=== PATIENT | female | born 1940 | race Caucasian/White ===

== ENCOUNTER 2020-08-24 08:22 | Emergency (ER) | payer MEDICARE ==
[~2020-08-24] VITALS: Ht 165.1 cm; Wt 97.1 kg
[~2020-08-24 08:22] MED LIST: AMOXICILLIN500 MG PO; CLOPIDOGREL75 MG PO; CURCUMIN1 GM MISC; FISH OIL + D31 EACH PO; GARLIC1 EAC1 PO; IPRAT-ALBUT 0.5-3 ML INH; LISINOPRIL10 MG PO; PAXIL40 MG PO; PROBIOTIC1 EAC1 PO; VITAMIN C500 M5 PO; VITAMIN D3 COM1 EACH PO
--- OUTSIDE RECORDS SUMMARY | 2020-08-24 08:26 | XMS ---
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 Aaliyah has no Care Guidelines for this patient. [facility] MO[facility] TOTAL 5 NOTE: Visits indicate total known visits. ED/C VISIT TRACKING (12 MO.) [facility]2020 [facility] [place] [facility] COMPLAINT: - SOB 07/31/2020 18:45 QUINTEN Matute [place] TYPE: Emergency COMPLAINT: - DIFFICULTY BREATHING DIAGNOSES: - Other mcfp (current) drug therapy - Personal history of nicotine dependence - Personal history of transient ischemic attack (TIA), and cerebral infarction without residual deficits - Unspecified asthma with (acute) exacerbation - Shortness of breath - Major depressive disorder, single episode, unspecified - Essential (primary) hypertension 11/04/2019 13:40 Camille IYER [place] TYPE: Emergency DIAGNOSES: - Unspecified abdominal pain - Other acute postprocedural pain - MEDIC 101/FLANK PAIN,ABDOMINAL PAIN 09/15/2019 09:38 Mcclellan Darian [place] TYPE: Emergency DIAGNOSES: - Diverticulitis of intestine, part unspecified, without perforation or abscess without bleeding - Hypotension, unspecified - Syncope and collapse - abdominal pain 08/25/2019 14:33 Crispin Pradhan [place] TYPE: Emergency DIAGNOSES: - HEMATURIA, BACK PAIN, SUPRAPUBIC PAIN - Hematuria, unspecified INPATIENT VISIT TRACKING (12 MO.) 09/15/2019 14:08 Camille IYER [place] TYPE: Medical Surgical DIAGNOSES: - Diverticulitis of intestine, part unspecified, without perforation or abscess without bleeding [email or web address]
[2020-08-24] MEDS ORDERED: PREDNISONE20 MG PO (10:05)
[2020-08-24] MEDS ORDERED: ZITHROMAX250 MG PO (10:05)
[2020-08-24] MEDS ORDERED: FLUTICASONE-SA1 EAC1 INH (10:05)
--- NOTE | 2020-08-25 17:20 | EKG ---
[facility] [address] [place], [place] [address] Signed Sinus rhythm with 1st degree AV block Otherwise normal ECG When compared with ECG of 31-JUL-2020 20:09, No significant change was found Confirmed by HECTOR WEISS DO ([id number]) on 08/25/2020 5:20:16 PM Electronically Signed By: HECTOR WEISS DO 08/25/20 1720 PATIENT NAME: CASPER GEORGE Electrocardiogram DATE OF : 42 PHYSICIAN: HECTOR WEISS DO REPORT #: [id number] REPORT IS CONFIDENTIAL AND NOT TO BE RELEASED WITHOUT AUTHORIZATION
== END 2020-08-24 10:24 | disposition home or self-care (01) ==
LOC: ED 08:22
DX: J45.901 Unspecified asthma with (acute) exacerbation (principal); Z86.73 Personal history of transient ischemic attack (TIA), and cerebral infarction without residual deficits; F32.9 Major depressive disorder, single episode, unspecified; I10 Essential (primary) hypertension; Z87.891 Personal history of nicotine dependence; Z79.899 Other long term (current) drug therapy
CPT/HCPCS: 71045; 80053; 83880; 84484; 85025; 93005; 93010; 94640; 96374; 99285-25; J2930

== ENCOUNTER 2020-09-02 10:37 | Inpatient (IN) | payer MEDICARE ==
[~2020-09-02] VITALS: Ht 165.1 cm; Wt 99.0 kg
[~2020-09-02 10:37] MED LIST changes: -CURCUMIN1 GM MISC; +FLUTICASONE-SA1 EAC1 INH; +PREDNISONE20 MG PO; +TURMERIC500 M2 PO; +ZITHROMAX250 MG PO
--- OUTSIDE RECORDS SUMMARY | 2020-09-02 10:40 | XMS ---
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 Care History Medical/Surgical 08/25/2020 [facility] - PATIENT DOES HAVE A PCP- DR HOPSON AT [facility]-RECENTLY ESTABLISHED CARE WITH PROVIDER. - CHW WILL UPDATE [facility] WITH PROVIDER AND MAKE SURE ED VISIT CHART NOTES ARE PROVIDED TO PCP OFFICE. E.D. VISIT COUNT (12 MO.) 1 [place] [facility] 1 [place] [facility] 3 [facility]. TOTAL 5 NOTE: Visits indicate total known visits. 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 - Major depressive disorder, single episode, unspecified - Essential (primary) hypertension 07/31/2020 18:45 QUINTEN [place] TYPE: Emergency COMPLAINT: - DIFFICULTY BREATHING DIAGNOSES: - 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
--- NOTE | 2020-09-02 13:40 | NUR ---
79 year old female patient admitted to ccu rm, 128 with dx of severe exerbation ASTHMA. UPON ADMIT PATIENT IS SOMEWHAT ANXIOUS, IS ABLE TO SPEAK IN COMPLETE SENTENCES. PATIENT STATES SHE HAS BEEN WITH INCREASED SHORTNESS OF BREATH AND WHEEZES OVER THE PAST 2 WEEKS. HAS HAD LONG HISTORY OF ASTHMA. IS SCHEDULED TO SEE A PULMONALOGIST NEXT WEEK. PATIENT HAS HAD PULMONALOGIST IN [place], WAS IN NOV OF THIS YEAR. ADMISSION PROCESS STARTED.
--- NOTE | 2020-09-02 13:50 | NUR ---
TO COMMODE TO VOID, IS WITH INCREASED DYSPNEA WITH EXERTION. HAS AUDIALBE WHEEZES. PATIENT C/O CHEST THIGHTNESS, STATES THIS HAS BEEN GOING ON FOR PAST 2 WEEKS.
--- NOTE | 2020-09-02 14:08 | NUR ---
ABG RESULTS ON RA, PH-7.45, POC2-38.7, PO2-70, HC03-26.3, SAT-94.2.
--- NOTE | 2020-09-02 14:45 | NUR ---
DUONEB GIVEN BY RT PER PATIENT REQUEST. SOLUMEDROL 80 MG IV GIVEN PER ORDERS.
--- NOTE | 2020-09-02 16:40 | NUR ---
ASSESSMENT DONE, LUNGS WITH BETTER AIR EXCHANGE AT THIS TIME.
--- NOTE | 2020-09-02 17:45 | NUR ---
TOOK DINNER WELL.
--- NOTE | 2020-09-02 18:27 | NUR ---
REQUESTING NEB TREATMENT.
--- NOTE | 2020-09-02 19:15 | NUR ---
REPORT TO NEXT SHIFT.
--- NOTE | 2020-09-02 20:14 | NUR ---
PATIENT ASSESSMENT COMPLETED. PT. HR 102-104 AFTER NEB TX. LUNGS DIM. IN RLL AND LLL, BUT CLEAR THROUGHOUT. GIVEN 3MG MELATONIN BEFORE BEDTIME. PT. WEARING CPAP AND RESTING IN BED WITH CALL LIGHT IN REACH.
--- NOTE | 2020-09-02 22:05 | NUR ---
PT. GIVEN SOLUMEDROL. AMBULATED TO THE BEDSIDE COMMODE AND VOIDED 300CC CLEAR YELLOW URINE. SOB WITH EXERTION. PT. STATED SHE FELT LIKE SHE COULD BREATH EASIER. LEFT RESTING IN BED AND DENIED FURTHER NEEDS.
--- NOTE | 2020-09-03 00:06 | NUR ---
PATIENT ASSESSMENT COMPLETED. PT. DENIES PAIN. IV SITE WNL. PT. LEFT RESTING IN BED WITH CPAP ON.
--- NOTE | 2020-09-03 05:53 | NUR ---
PT. ASSESSMENT COMPLETED AND SOLUMEDROL GIVEN. PT. STATED SHE WAS ANXIOUS ABOUT GOING HOME TOO SOON AND HAVING ANOTHER EXACERBATION. VOIDED 450CC CLEAR YELLOW URINE IN THE THE COMMODE. AMBULATED WITH NURSE ASSISTANCE AND TOLERATED WELL. IV SITE WNL AND FLUSHED WELL. PATIENT LEFT RESTING IN BED WITH R.T. AT BEDSIDE FOR [facility].
--- NOTE | 2020-09-03 06:38 | NUR ---
PATIENT BROUGHT TOILETRIES, PER REQUEST AND ORDERED BREAKFAST. PT. STATED SHE HAD COUGHED UP WHITE AND YELLOW SPUTUM. LEFT RESTING IN BED WITH CALL LIGHT NEARBY.
--- NOTE | 2020-09-03 07:30 | NUR ---
REPORT RECIEVED. PATIENT IS BED RESTING. NO DISTRESS NOTED.
--- NOTE | 2020-09-03 08:00 | NUR ---
ASSESSMENT DONE. PATIENT STATES SHE FEELS BETTER TODAY. TALKED WITH PATIENT ABOUT POC FOR DAY. INDICATES UNDERSTANDING. ROUTINE MEDICATIONS GIVEN. NEB TREATMENT PER RT GIVEN EARLIER.
--- NOTE | 2020-09-03 08:42 | NUR ---
TOOK BREAKFAST WELL.
--- NOTE | 2020-09-03 09:00 | NUR ---
UP TO BR. VOIDED AND EXPELLED MEDIUM FORMED STOOL. INCREASED SHORTNESS OF BREATH NOTED WITH EXERTION AND WITH TALKING.
--- NOTE | 2020-09-03 09:20 | NUR ---
SITTING IN CHAIR, VERY TALKATIVE. TV ON .
--- NOTE | 2020-09-03 10:30 | NUR ---
UP TO BR, IS FAIRLY STABLE ON FEET. INCREASED SOB WITH ACTIVITY. BACK TO CHIAR. HAS BEEN SITTING IN CHAIR WATCHING TV. C/O FEELING VERY SHAKEY. STATES SHE FEELS LIKE SHE IS GETTING TOO MANY NEBS TREATMENTS. TALKED WITH PATIENT REGARDING THIS.
--- NOTE | 2020-09-03 12:00 | NUR ---
REMAINS IN CHAIR. NO CHANGES.
--- NOTE | 2020-09-03 12:15 | NUR ---
ASSESSMENT DONE. LUNCH GIVEN.
--- NOTE | 2020-09-03 13:00 | NUR ---
DR. MADERA HERE TO SEE PATIENT. PATIENT WILL REMAIN IN CCU. ORDERS RECIEVED. PATIENT CONTINUES TO GET SHORT OF BREATH WITH TALKING AND EXERTION.
--- NOTE | 2020-09-03 13:20 | NUR ---
UP TO BR WITH ASSIST. HAS BEEN TAKING PO W/O PROBLEMS.
--- NOTE | 2020-09-03 13:30 | NUR ---
BACK TO BED W/O INCIDENT.
--- NOTE | 2020-09-03 14:12 | EKG ---
[facility] [address] [place] [address] Signed Normal sinus rhythm Inferior infarct , age undetermined Abnormal ECG No previous ECGs available Confirmed by SHERRIE MADERA MD ([id number]) on 09/03/2020 2:12:24 PM Electronically Signed By: SHERRIE MADERA MD 09/03/20 1412 PATIENT NAME: CASPER GEORGE Electrocardiogram DATE OF : 42 PHYSICIAN: SHERRIE MADERA MD REPORT #: [id number] REPORT IS CONFIDENTIAL AND NOT TO BE RELEASED WITHOUT AUTHORIZATION
--- NOTE | 2020-09-03 16:30 | NUR ---
ASSESSMENT DONE. LESS SHAKEY. IS MORE RELAXED AT THIS TIME.
--- NOTE | 2020-09-03 18:00 | NUR ---
TOOK DINNER WELL.
--- NOTE | 2020-09-03 19:14 | NUR ---
REPORT TO NEXT SHIFT.
--- NOTE | 2020-09-03 19:51 | NUR ---
PATIENT ASSESSMENT COMPLETED. LUNGS DIM. IN BASES, BUT CLEAR. DENIES PAIN AND STATES THAT SHE IS STILL SOB WHEN MOVING. IV SITE WNL. PATIENT GIVEN 5MG MELATONIN AND DENIED FURTHER NEED. LEFT RESTING IN BED WITH CALL LIGHT IN REACH.
--- NOTE | 2020-09-03 20:16 | NUR ---
PATIENT USED CALL LIGHT APPROPRIATELY FOR NURSE ASSISTANCE WITH CPAP SET UP. PATIENT AMBULATED INDEPENDENTLY TO THE BATHROOM AND VOIDED 300CC CLEAR YELLOW URINE. TOLERATED WELL. PATIENT LEFT RESTING IN BED WITH CALL LIGHT IN REACH.
--- NOTE | 2020-09-04 01:23 | NUR ---
PATIENT USED CALL LIGHT APPROPRIATELY FOR NURSE ASSISTANCE TO THE BATHROOM. AMBULATED INDEPENDENTLY AND TOLERATED WELL. VOIDED 6500CC CLEAR YELLOW URINE. IV SITE WNL AND FLUSHED WELL. LUNGS CLEAR THROUGHOUT AND DIM. IN BASES. PATIENT STATED THAT SHE HAS BEEN SLEEPING WELL. LEFT RESTING IN BED WITH CPAP ON AND CALL LIGHT WITHIN REACH.
--- NOTE | 2020-09-04 04:44 | NUR ---
PATIENT ASSESSMENT COMPLETED. PATIENT AMBULATED INDEPENDENTLY TO THE BATHROOM AND TOLERATED WELL. PATIENT STATED SHE HAD BEEN COUGHING A LOT THROUGH THE NIGHT. LUNGS WERE CLEAR THROUGHOUT AND DIM IN BASES. IV SITE WNL AND DRESSING WAS REINFORCED WITH TAPE. PT. LEFT RESTING IN BED AND DENIED FURTHER NEEDS.
--- NOTE | 2020-09-04 08:00 | NUR ---
assessment done. AUDIBLE WHEEZES NOTED. IS SHORT OF BREATH.
--- NOTE | 2020-09-04 08:15 | NUR ---
NEB TREATMENT GIVEN VIA [facility]EN. AFTER NEB TREATMENT, NO AUDIBLE WHEEZES HEARD. LESS SHORT OF BREATH.
--- NOTE | 2020-09-04 09:00 | NUR ---
TOOK BREAKFAST WELL.
--- NOTE | 2020-09-04 09:40 | NUR ---
UP TO BR TO VOID. TOLERATING AMBULATION WELL. TEETH BRUSHED,FACE AND BACK WASHED WHILE UP TO SINK. UPON RETURN TO CHAIR, HAS INCREASED WHEEZES WITH SHORTNESS OF BREATH. ENCOURAGE PATIENT TO REST.
--- NOTE | 2020-09-04 09:42 | NUR ---
fresh water given, pt. got up to walk to the bathroom. breakfast given. no ohter needs at this time
--- NOTE | 2020-09-04 10:30 | NUR ---
dr. bauer here to see patient, ORDERS RECIEVED.
[2020-09-04] MEDS ORDERED: OSCILLOCOCCINUM PO (10:58)
--- NOTE | 2020-09-04 10:58 | NUR ---
MED REC COMPLETE
--- NOTE | 2020-09-04 11:30 | NUR ---
REMAINS IN CHAIR.
--- NOTE | 2020-09-04 12:10 | NUR ---
ASSESSMENT DONE. STATES SHE IS SHORT OF BREATH, RT AWARE. RT TO GIVE NEB TREATMENT.
--- NOTE | 2020-09-04 12:20 | NUR ---
NEB TREATMENT GIVEN PER RT. PT WISHES TO REST BEFORE EATING LUNCH.
--- NOTE | 2020-09-04 13:25 | NUR ---
pt. got up and walked to the bathroom. cleaned her bottom, put a clean gown on. sitting in chair eating her lunch. no other needs at this time.
--- NOTE | 2020-09-04 13:50 | NUR ---
BACK TO BED. NO FUTHER CHANGES.
--- NOTE | 2020-09-04 14:26 | NUR ---
UNABLE TO VISIT, PENDING COVID-19 RESULTS. WILL FOLLOW
--- NOTE | 2020-09-04 15:50 | NUR ---
TO MED-SURG VIA CHAIR. REPORT TO RAISSA CALDERON.
--- NOTE | 2020-09-04 16:00 | NUR ---
PT ARRIVED TO FLOOR. PT ABLE TO PIVOT TRANSFER FROM CHAIR TO BED. PT SHORT OF BREATH ON ARRIVAL AND WHILE TALKING, PT DUE TO HAVE A NEB TREATMENT SHORTLY AND STATES THAT THIS WILL HELP HER FEEL BETTER. PT POLITE AND DISCUSSED WITH THIS RN HER CONCERNS ABOUT HAVING TO PAY FOR MEDICATIONS THAT SHE CAN'T AFFORD BUT THAT ASSIST HER TO BREATHE BETTER. PT HAS NO OTHER COMPLIANTS ON ARRIVAL. CALL RAYMOND BOWMAN, PT STATES SHE WILL CALL THIS RN WHEN SHE NEEDS TO USE THE RESTROOM
--- NOTE | 2020-09-04 17:50 | NUR ---
THIS RN IN PTS ROOM TO GIVE PT HER EVENING MEDS. PT APPEARS TO BE LESS SHORT OF BREATH AT THIS TIME AND IS SITTING UP IN BED WATCHING TV. PT HAS NO COMPLAINTS OR CONCERNS OF NOTE
--- NOTE | 2020-09-04 18:52 | NUR ---
PATIENT IN BED WATCHING TV. CALL LIGHT IN REACH. NO FURTHER NEEDS AT THIS TIME.
--- NOTE | 2020-09-04 19:20 | NUR ---
BEDSIDE REPORT RECEIVED FROM YUMIKO HAJI. pt IS AWAKE, RESTING IN BED. NO REQUESTS AT THIS TIME. CALL LIGHT IN REACH.
--- NOTE | 2020-09-04 20:55 | NUR ---
SBA TO RESTROOM FOR VOID. BACK TO BED VSS. SPO2 WNL ON RA. ASSESSMENT COMPLETE. LUNG SOUNDS CLEAR THROUGHOUT. pt DENIES SOB. ICE WATER PROVIDED. HOME CPAP IN REACH. PILLOW PROVIDED. NO ADDITIONAL REQUESTS.
--- NOTE | 2020-09-04 21:10 | PATH ---
[facility] [address] [place], [place] [address] Signed ORDERING PHYSICIAN: Abhilash Stein MD PATIENT NAME: CASPER GEORGE GENDER: F : 1940 Prior History: No cases found. SPECIMEN(S): No Source Given MOLECULAR PATHOLOGY RESULTS: SARS-CoV-2 Not Detected ADDITIONAL NOTES.: The [employer] Fusion SARS-CoV-2 Assay is a multiplex real-time PCR (RT-PCR) in vitro diagnostic test intended for the qualitative detection of RNA from SARS-CoV-2 from individuals who meet COVID-19 clinical and/or epidemiological criteria. In general, SARS-CoV-2 RNA can be detected during the acute phase of infection. Positive results indicate the presence of SARS-CoV-2 RNA. Clinical correlation with patient history and other diagnostic information is necessary to determine patient infection status. Positive results do not rule out bacterial infection or co-infection with other viruses. Negative results do not preclude SARS-CoV-2 infection and should not be used as the sole basis for patient management decisions. Negative results must be combined with other clinical observations, patient history, and epidemiological information. The [place] Fusion SARS-CoV-2 Assay is not yet approved or cleared by the [place] FDA. When there are no FDA-approved or cleared tests available, and other criteria are met, FDA can make tests available under an emergency access mechanism called an Emergency Use Authorization (EUA). The EUA for this test is supported by the [place] of Health and Human Service's (HHS's) declaration that circumstances exist to justify the emergency use of in vitro diagnostics for the detection and/or diagnosis of the virus that causes COVID-19. This EUA will remain in effect for the duration of the COVID-19 declaration justifying emergency of IVDs, unless it is terminated or revoked by FDA, after which the test may no longer be used. The [place] Fusion SARS-CoV-2 Assay is for use only under EUA PATIENT NAME: CASPER GEORGE PATHOLOGY DATE OF : 42 REPORT #: [id number] PHYSICIAN: MAGALIE VERDUZCO PCP: ALEXANDRE HOPSON MD REPORT IS CONFIDENTIAL AND NOT TO BE RELEASED WITHOUT AUTHORIZATION [facility] [address] [place] [id number] Signed in [place] laboratories certified under the Clinical Laboratory Improvement Amendments of 1988 (CLIA) to perform high complexity tests. [facility] is certified under CLIA to perform high complexity clinical laboratory testing. PERFORMING LABORATORY.: Molecular testing was performed by [facility] [place] [address] (Lead Nuclear Medicine Technologist: Xavier Anderson D.O.; CLIA#: [id number]) Diagnostician: System Interface Pathologist Electronically Signed 09/04/2020 Copies: ~ PATIENT NAME: CASPER GEORGE PATHOLOGY DATE OF : 42 REPORT #: [id number] PHYSICIAN: MAGALIE VERDUZCO PCP: ALEXANDRE HOPSON MD REPORT IS CONFIDENTIAL AND NOT TO BE RELEASED WITHOUT AUTHORIZATION
--- NOTE | 2020-09-04 22:49 | NUR ---
CHECKED ON pt. RESTING IN BED WITH HOME CPAP ON. BREATHING UNLABORED. LIGHTS OFF IN ROOM.
--- NOTE | 2020-09-05 01:21 | NUR ---
pt RESTING IN BED WITH HOME CPAP. BREATHING EQUAL AND UNLABORED. LIGHTS OFF IN ROOM.
--- NOTE | 2020-09-05 03:10 | NUR ---
CHECKED ON pt. RESTING IN BED WITH HOME CPAP ON. BREATHING UNLABORED.
--- NOTE | 2020-09-05 06:35 | NUR ---
pt SLEEPING, AWAKENS TO VOICE. DENIES SOB UPON AWAKENING. LUNG SOUNDS CLEAR, DIMINISHED THROUGHOUT ALL LOBES. SBA TO RESTROOM FOR VOID, ORAL CARE COMPLETE. pt BACK IN BED, C/O SOB AFTER CONVERSING WITH THIS RN. PRN NEB TREATMENT ADMINISTERED. pt STATES "I FEEL SO MUCH BETTER". LUNG SOUNDS CLEAR WITH OCCASIONAL EXPIRATORY WHEEZE AUSCULTATED FABI. pt ON RA. CALL LIGHT IN REACH. COFFEE AND HOT WATER PROVIDED REQUESTED.
--- NOTE | 2020-09-05 06:39 | NUR ---
pt RESTED WELL THIS SHIFT. ON HOME CPAP WITH SLEEP, RA WHILE AWAKE. PRN AND SCHEDULED NEB TREATMENTS. LUNG SOUNDS CLEAR WITH OCCASIONAL WHEEZES AUSCULTATED. SBA. VOIDING QS. VSS. ALERT AND ORIENTED. USES CALL LIGHT APPROPRIATELY.
--- NOTE | 2020-09-05 07:10 | NUR ---
BEDSIDE HANDOFF REPORT RECEIVED FROM PUBLIC HEALTH TECHNOLOGIST RN. PT RESTING IN BED. PT STATES SHE FEELS PRETTY GOOD THIS AM. PT DENIES NEEDS AT THIS TIME.
--- NOTE | 2020-09-05 08:45 | NUR ---
PT RESTIGN IN BED, COMPLETED WITH BREAKFAST. PT ON ROOM AIR, LUNG SOUNDS CLEAR UN BUL, CRACKLES NOTED TO BLL, STATES BREATHING FEEL BETTER TODAY VERSUS YESTERDAY, CONTINUES TO GET SOB WITH ACTIVITY OR WHILE TALKING. PT DENIES NAUSEA, BOWEL TONES ACTIVE, TOLERATING DIET. PT WITHOUTE EDEMA. CMS INTACT. IV SOLUMEDROL GIVEN, IV SALINE LOCKED. PT ASSISTED TO BATHROOM, SBA, PT REQUESTING TO SHOWER, FARM EQUIPMENT ENGINE MECHANIC TO ASSIST PT.
--- NOTE | 2020-09-05 09:36 | NUR ---
PATIENT SHOWERED WITH HELP OF DISABILITY COORDINATOR. PATIENT MOSTLY IND IN SHOWER. NEW GOWN PROVIDED. SHAMPOO, YUKO CARE, SKIN CARE DONE. AM CARE. PATIENT NOW BACK TO BED, SBA. ASKED FOR BREATHING TREATMENT, RT NOTIFIED. CALL LIGHT IN REACH. NO FURTHER NEEDS AT THIS TIME.
--- NOTE | 2020-09-05 11:10 | NUR ---
PT RESTING IN BED. PT STATES BREATHIN GIMPROVED AFTER BREATHING TREATMENT. PT SBA TO BATHROOM, VOIDED. PT DENIES OTHER NEEDS AT THIS TIME.
--- NOTE | 2020-09-05 11:35 | NUR ---
ROUNDED ON PT. PLAN TO CONTINEU IV SOLUMEDROL AND INCREASE ACTIVITY TOLERATED.
--- NOTE | 2020-09-05 14:30 | NUR ---
PT RESTING IN BED. PT STATES SHE HAS WALKED AROUND IN THE ROOM 3 TIMES, ABLE TO WALK FROM WINDOW TO DOOR AND BACK THEN NEEDS TO SIT TO CATCH HER BREATH. LUNG SOUNDS CLEAR. IV TO RIGHT HAND TUBING CATCHING ON THINGS WITH MOVEMENT, PT REQUESTING IV TO BE MOVED. NEW IV STARTED TO LEFT FOREARM. NO ACUTE CHANGES. PT REQUESTING TO SPEAK WITH CASE MANAGEMENT, CM NOTIFIED AND WILL ROUND ON PT.
--- NOTE | 2020-09-05 14:35 | NUR ---
PATIENT HAS BEEN UP WALKING AROUND, FROM OTHER SIDE OF BED TO CHAIR AND TO BATHROOM. RN IN ROOM AT THIS TIME. CALL LIGHT IN REACH. NO FURTHER NEEDS AT THIS TIME.
[2020-09-05] MEDS ORDERED: PROAIR HFA8.5 GM INH (14:58)
--- NOTE | 2020-09-05 16:21 | NUR ---
Attempted to see pt several times, but she is taking frequent nebulizer treatments and no entry into room following treatment for 1 hour. Was able to speak with pt by phone. She voices concern for finances and inability to pay >200 for each nebulizer medication. I checked with [facility] and they could provide for reduced cost, Bon from pharm is also working on this and was able to get the lowest rate through [employer]. Prescriptions were sent. Prescription, notes, H&P, and face sheet sent to [facility] for new Nebulizer as pt is not working well and is approx 11 years old. Pt states she lives alone at [facility]. She has 5 steps with rails. Her daughter Yasmin, lives in [place] and assists her. Pt has had frequent ER trips for her asthma, she spoke with Dr. Stein and plans on changing for him to be her pcp. Pt. plans on dc in the next 2 days. Feels she will be ok to go home, isidoro will assist.
--- NOTE | 2020-09-05 18:22 | NUR ---
PATIENT IN BED RESTING. CALL LIGHT IN REACH. NO FURTHER NEEDS AT THIS TIME.
--- NOTE | 2020-09-05 18:33 | NUR ---
PT BREATHING IMPROVED TODAY, INCREASING ACTIVITY TOLERANCE, WALKING INDEPENDENTLY IN ROOM. LUNG SOUNDS CLEAR, CRACKLES NOTED IN BASES THIS AM, ON ROOM AIR, RECEIVED SOLUMEDROL AND NEBS. NEW IV STARTED TO LEFT ARM. PT WITH GOOD APPETITE. VOIDING QS, HAD BM TODAY.
--- NOTE | 2020-09-05 19:10 | NUR ---
SHIFT REPORT FROM NURSE MARIE. PT IN BED, TALKATIVE AND ALERT. PT REPORTS NO PAIN AT THIS TIME AND THAT SHE "JUST FEELS SO MUCH BETTER". EXTRA BLANKET PROVIDED. NO FURTHER NEEDS AT THIS TIME.
--- NOTE | 2020-09-05 20:00 | NUR ---
V/S AND I&O TAKEN AND CHARTED. ICE WATER REFILLED. NO OTHER NEEDS AT THIS TIME.
--- NOTE | 2020-09-05 20:15 | NUR ---
IN ROOM FOR ASSESSMENT. PT READY FOR BED AND WAITING FOR DUONEB TREATMENT. LUNG HAVE LIGHT CRACKLES IN BOTH BASES OTHERWISE ASSESSMENT UNREMARKABLE. VSS. RT TO SET UP CPAP FOR PT. NO FURTHER NEEDS AT THIS TIME. CALL LIGHT WITHIN REACH
--- NOTE | 2020-09-06 00:07 | NUR ---
CHECKED ON PT. PT APPEARS TO BE SLEEPING WITH CPAP ON. EVEN UNLABORED BREATHING, EYES CLOSED. NO APPARENT SIGNS OF DISTRESS. CALL LIGHT WITHIN REACH.
--- NOTE | 2020-09-06 02:45 | NUR ---
ROUNDS COMPLETE. PT SLEEPING ON BACK WITH CPAP ON. NO APPARENT SIGNS OF DISTRESS.
--- NOTE | 2020-09-06 07:49 | NUR ---
this rn received report from stevie posada. pt appears to be resting at this time with respirations noted.
--- NOTE | 2020-09-06 08:16 | NUR ---
PATIENT SITTING UP IN BED TAKING HER BREAKFAST. WHITE BOARD UPDATED. ICE WATER GIVEN. CALL LIGHT WITHIN REACH. NO OTHER NEEDS AT THIS TIME
--- NOTE | 2020-09-06 09:00 | NUR ---
PATIENT SITTING UP IN BED. RN IN ROOM. VITAL SIGNS DONE BY RN. I&O DONE. CALL LIGHT WITHIN REACH. NO OTHER NEEDS AT THIS TIME
--- NOTE | 2020-09-06 09:14 | NUR ---
THIS RN IN PTS ROOM TO DO PTS MORNING ASSESSMENT AND MORNIGN MEDS. PT SOUNDS TO BE BREATHING MUCH BETTER SINCE THE LAST TIME THIS RN HAD PT. PT HAS NOTHING ELSE TO REPORT TO THIS RN.
--- NOTE | 2020-09-06 10:20 | NUR ---
Spoke with Jaqueline. Updated I called [facility] this am and nebulizer will be delivered to the hospital today. States she plans on walking in the [place] today as she is weak, she has been sick with her asthma exacerbations for close to a month. She becomes sob when visiting luis manuel my visit today. Denies needs to go home, she lives alone, but daughter will assist her if needed. She denies concerns as she feels she just needs meds, she did not have the funds to purchase medications which were ordered by her PCP.
--- NOTE | 2020-09-06 11:10 | NUR ---
Called and clarified with [facility] they received my fax for new nebulizer yesterday. They are working on this now. Requested they deliver to the hospital today. She faxed there confirmation of order form and Dr. Christine signed and I faxed it to Denice.
--- NOTE | 2020-09-06 11:15 | NUR ---
Charge cord for phone taken to room. Pt showed how to access good RX to check [facility] for medication. Pt again stating she has a hard time paying for meds and groceries, as her medications a very expensive. Again discussed Bon, pharmacist, has worked through [employer] to assist her with discounted medication.
--- NOTE | 2020-09-06 13:15 | NUR ---
PATIENT SITTING UP IN BED. VITAL SIGNS AND I&O DONE. ICE WATER GIVEN. CALL LIGHT WITHIN REACH. NO OTHER NEEDS AT THIS TIME
--- NOTE | 2020-09-06 14:59 | NUR ---
THIS RN IN PTS ROOM TO CHECK ON HER AND DO HER AFTERNOON ASSESSMENT. PT APPEARS TO BE RESTING COMFORTABLY WITH RESPIRTAIONS NOTED
--- NOTE | 2020-09-06 15:45 | NUR ---
THIS RN IN PTS ROOM TO PTS AFTERNOON ASSESSMENT. PT STATES THAT SHE IS FEELING BETTER AND IS NOW HUNGRY, NOT AIR HUNGRY ANYMORE. PT REQUESTED SOME FRESH WATER AND JELLO, THIS RN ABLE TO PROVIDE THESE REQUESTS TO PT AT THIS TIME
--- NOTE | 2020-09-06 17:09 | NUR ---
PATIENT SITTING UP IN BED. VITAL SIGNS AND I&O DONE. CALL LIGHT WITHIN REACH. NO OTHER NEEDS AT THIS TIME
--- NOTE | 2020-09-06 19:22 | NUR ---
REPORT RECEIVED FROM YUMIKO HAJI. PATIENT AWAKE IN BED, A+O, STATES NO NEEDS AT THIS TIME. CALL LIGHT WITHIN REACH, WILL CONTINUE TO MONITOR.
--- NOTE | 2020-09-06 19:44 | NUR ---
PRN MEDICATION ADMINISTERED. IV LEAKING, DRESSING AND EXTENSION SET CHANGED, ERROR RESOLVED, FLUSHES WNL. VITALS AND I/O'S COMPLETE, ASSESSMENT COMPLETE. WATER AND WARM BLANKET PROVIDED, CPAP SET UP, CALL LIGHT IN REACH. PT DENIES NEEDS AT THIS TIME, WILL CONTINUE TO MONITOR.
--- NOTE | 2020-09-07 00:30 | NUR ---
ROUNDED ON PATIENT, LAYING IN BED WITH EYES CLOSED, LIGHTS OFF. CPAP IN PLACE, BREATHING EVEN AND UNLABORED. NO APPARENT NEEDS AT THIS TIME, WILL CONTINUE TO MONITOR.
--- NOTE | 2020-09-07 04:33 | NUR ---
ROUNDED ON PATIENT, LAYING IN BED WITH EYES CLOSED, BREATHING EVEN AND UNLABORED, CPAP IN PLACE. CALL LIGHT WITHIN REACH, WILL CONTINUE TO MONITOR.
--- NOTE | 2020-09-07 07:46 | NUR ---
this rn received report from stevie posada and karen posada. pt sitting up in bed this am and has no complaints to report this am.
--- NOTE | 2020-09-07 08:37 | NUR ---
IDT completed. Pt will dc to day, awaiting nebulizer delivery from [facility].
--- NOTE | 2020-09-07 09:19 | NUR ---
THIS RN IN PTS ROOM TO GIVE PT HER MORNING MEDS WITH [facility] WILD LIFE MANAGER KORIN. PT AGREEABLE TO HAVE PT IN TOOM AND TOOK MEDS WITH WILD LIFE MANAGER. KORIN ABLE TO GIVE MEDS THIS AM WELL AND WITHING PROCEDURE.
[2020-09-07] MEDS ORDERED: PREDNISONE20 MG PO ×2 (10:38→10:39)
[2020-09-07] MEDS ORDERED: PREDNISONE10 MG PO (10:39)
[2020-09-07] MEDS ORDERED: PREDNISONE5 MG PO (10:40)
--- NOTE | 2020-09-07 10:45 | NUR ---
Called [facility] and nebulizer was not delivered. They state they were waiting for pt to call them. Reminded she is in the hospital. Requested they deliver the nebulizer neha as she is planning on dc today. Their equipment driver making deliveries to [place] and will not return until after 1 pm. I spoke with Jaqueline and she states she will wait for the nebulizer and then dc. Called [facility] and notified.
[2020-09-07] MEDS ORDERED: PERFOROMIS20 MCG/2 M INH (10:59)
[2020-09-07] MEDS ORDERED: BUDESONIDE0.5 MG/2 M INH (10:59)
== END 2020-09-07 14:15 | disposition home or self-care (01) | DRG 203 ==
LOC: ED 10:37 → CCU 13:08 → MS 13:08
PROVIDERS: ADMIT Internal Medicine; ATTEND Internal Medicine
DX: J45.51 Severe persistent asthma with (acute) exacerbation (principal); Z20.828 Contact with and (suspected) exposure to other viral communicable diseases; F32.9 Major depressive disorder, single episode, unspecified; I10 Essential (primary) hypertension; Z86.73 Personal history of transient ischemic attack (TIA), and cerebral infarction without residual deficits; Z87.891 Personal history of nicotine dependence; Z79.51 Long term (current) use of inhaled steroids; Z79.52 Long term (current) use of systemic steroids; Z79.899 Other long term (current) drug therapy; Z79.02 Long term (current) use of antithrombotics/antiplatelets
CPT/HCPCS: 36600; 71045; 80053; 82803; 83735; 84484; 85025; 85379; 93005; 93010; 94640; 94667; 94668; 94760; 96374; 99285-25; C9803; J1100; J1650; J2930

== ENCOUNTER 2020-09-09 16:59 | Observation (INO) | payer MEDICARE ==
[~2020-09-09] VITALS: Ht 165.1 cm; Wt 98.2 kg
[~2020-09-09 16:59] MED LIST changes: +BUDESONIDE0.5 MG/2 M INH; +OSCILLOCOCCINUM PO; +PERFOROMIS20 MCG/2 M INH; +PREDNISONE10 MG PO; +PREDNISONE5 MG PO; +PROAIR HFA8.5 GM INH
--- NOTE | 2020-09-09 18:09 | NUR ---
PT A DIRECT ADMIT TO UNIT PER DR. MADERA'S ORDERS. PT WHEELED TO MED-SURG HAVING DIFFICULTY BREATHING. DENIES CHEST PAIN BUT REPORTS UPPER AIRWAY FEELS TIGHT. VSS. PT SATING 97% ON ROOM AIR. LUNG SOUNDS CLEAR. 22 G IV STARTED IN LEFT FOREARM/WRIST. LABS DRAWN AND IVF STARTED (LR @ 125 MLS/HR). PT DENIES PAIN OR NAUSEA. RT IN TO COMPLETE BREATHING TX. DR. WEISS HAS BEEN IN TO ASSESS PT. ORDERS HAVE BEEN ACKNOWLEDGED. PT LAYING IN BED ALERT AND ORIENTED. DINNER HAS BEEN ORDERED. NO FURTHER NEEDS. CALL LIGHT WITHIN REACH.
--- NOTE | 2020-09-09 19:05 | NUR ---
SHIFT REPORT RECEIVED FROM LOU CALDERON. PT UP IN BED, EATING DINNER. NO NEEDS AT THIS TIME. CALL LIGHT IN REACH.
--- NOTE | 2020-09-09 20:35 | NUR ---
PT CALLED FOR ASSISTANCE TO THE RESTROOM SBA AND SHE IS BACK IN BED. SHE WOULD LIKE MELATONIN 5MG TONIGHT, ADVISED HER WE WILL HAVE TO ASK THE DR. SHE DENIES FURTHER NEEDS, CALL LIGHT IS WITHIN REACH.
--- NOTE | 2020-09-09 22:10 | NUR ---
in rm to get vitals, i&os in, rn to follow with meds, pt up to void, bk in bed, no further needs at this time
--- NOTE | 2020-09-09 22:25 | NUR ---
SCHEDULED MEDS PROVIDED. IV CDI, WNL, FLUSHED WELL. PT UP TO BR AND BACK TO BED, SBA WITH MANUEL STRIPPER OPAQUER. NO OTHER NEEDS AT THIS TIME. CALL LIGHT IN REACH.
--- NOTE | 2020-09-09 23:59 | NUR ---
PT RESTING IN BED, EYES CLOSED. RR EVEN AND UNLABORED. CALL LIGHT IN REACH.
--- NOTE | 2020-09-10 01:50 | NUR ---
PT CALLED D/T BEEPING IV. NEW BAG OF LR IS NOW INFUSING. VS & I&OS ENTERED WITH MANUEL GUERRA. PT HAS FRESH ICEWATER AT BEDSIDE AND DENIES FURTHER NEEDS.
--- NOTE | 2020-09-10 03:19 | NUR ---
PT ASSESSMENT COMPLETED. GCS 15, A&O X4. LUNG SOUNDS CLEAR, HEART TONES REGULAR. ABD SOFT, NONTENDER, PT STATES NORMAL. CMS INTACT. HOB ELEVATED PT DOES NOT HAVE ALL OF THE PARTS OF HER OWN CPAP AND DECLINES TO USE A HOSPITAL CPAP. IV WNL, IV FLUIDS INFUSING PER ORDER. NO OTHER NEEDS AT THIS TIME. CALL LIGHT IN REACH.
--- NOTE | 2020-09-10 05:00 | NUR ---
PT AWAKE IN ROOM. ASKS FOR A BREATHING TREATMENT, RT NOTIFIED.
--- NOTE | 2020-09-10 06:05 | NUR ---
IN RM TO GET PT VITALS, PT UP TO VOID, FRESH ICE WATER GIVEN, NO FURTHER NEEDS AT THIS TIME
--- NOTE | 2020-09-10 07:51 | NUR ---
PATIENT SLEEPING. WHITE BOARD UPDATED. CALL LIGHT WITHIN REACH. NO OTHER NEEDS AT THIS TIME
--- NOTE | 2020-09-10 08:15 | NUR ---
PT RESTING IN SEMIFOWLERS POSITION IN BED ALERT AND ORIENTED EATING BREAKFAST. AM MEDS ADMINISTERED AND ASSESSMENT COMPLETED. PT DENIES PAIN, NAUSEA OR SOB AT REST. CALL LIGHT AND H2O IN REACH.
--- NOTE | 2020-09-10 08:55 | NUR ---
PATIENT RESTING IN BED. SETS UP BATHROOM FOR SHOWER. CALL LIGHT WITHIN REACH. NO OTHER NEEDS AT THIS TIME
--- NOTE | 2020-09-10 09:53 | NUR ---
Medications reconciled
--- NOTE | 2020-09-10 09:57 | NUR ---
PATIENT RESTING IN BED. VITAL SIGNS AND I&O DONE. ICE WATER GIVEN. CALL LIGHT WITHIN REACH. NO OTHER NEEDS AT THIS TIME
--- NOTE | 2020-09-10 13:45 | NUR ---
PATIENT RESTING IN BED. VITAL SIGNS AND I&O DONE. CALL LIGHT WITHIN REACH. NO OTHER NEEDS AT THIS TIME
--- NOTE | 2020-09-10 14:00 | NUR ---
IN TO SEE PATIENT. PT A/O X4 RESTING IN BED. ASSESSMENT COMPLETED. PT WAS PROVIDED WITH A FWW AND WAS UP TO AMBULATE IN [place] WITH 1PA PER HER REQUEST. PT TOLERATED AMBULATION TO FIRST NURSES STATION FROM ROOM 118 WELL WITH INCREASING SOB AND TACHYPNEA ON WAY BACK TO BED. O2 SATS REMAINED WNL 98% WHEN SPOT CHECKED AFTER WALK. PT NOW RESTING IN HIGH FOWLERS POSITION IN BED WATCHING TV AND STATES "I GOT A LITTLE OUT OF BREATH WITH THE WALK BUT I WANT TO GO [place] THIS AFTERNOON. I'M FEELING BETTER NOW". NO FURTHER NEEDS OR CONCERNS VOICED. CALL LIGHT AND H2O IN REACH.
--- NOTE | 2020-09-10 16:00 | NUR ---
IN TO SEE PATIENT PT RESTING IN SEMIFOWLERS POSITION IN BED STATES SHE JUST DID 6 LAPS IN HER ROOM WITH HER FWW AND THAT SHES TRYING TO BUILD UP HER STAMINA AGAIN. CALL LIGHT AND H2O IN REACH. PT ENCOURAGED TO USE CALL LIGHT WITH TRANSFERS AND AGREES. NO FURTHER NEEDS OR CONCERNS VOICED.
--- NOTE | 2020-09-10 17:15 | NUR ---
PATIENT IN BED WATCHING TV. VITAL SIGNS AND I&O DONE. ICE WATER GIVEN. CALL LIGHT WITHIN REACH. NO OTHER NEEDS AT THIS TIME
--- NOTE | 2020-09-10 19:00 | NUR ---
SHIFT REPORT RECEIVED FROM DAYSNHFT YUMIKO BOO AT BEDSIDE. PT AWAKE AND RESTING IN BED, BOARD UPDATED. NO NEEDS AT THIS TIME. CALL LIGHT IN REACH.
--- NOTE | 2020-09-10 20:15 | NUR ---
ASSESSMENT COMPLETE, SCHEDULED MEDS GIVEN (SEE EMAR). PT A/OX4, VSS. RT KRISTY IN ROOM TO ADMINISTER SCHEDULED BREATHING TREATMENTS. IV SITE WNL, FLUSHES EASILY. NO ADDITIONAL NEEDS, CALL LIGHT IN REACH.
--- NOTE | 2020-09-10 21:00 | NUR ---
PER SHIFT REPORT, PT SALINE LOCKED. CURRENT ORDERS FOR IV FLUIDS. SPOKE TO DR WEISS FOR CLARIFICATION. VERBAL ORDERS READ BACK, OKAY TO KEEP PT SALINE LOCKED. ORDER DISCONTINUED BY THIS RN.
--- NOTE | 2020-09-10 23:09 | NUR ---
PT RESTING QUIETLY IN BED, HOME CPAP MACHINE IN PLACE. DENIES NEEDS AT THSI TIME. CALL LIGHT IN REACH.
--- NOTE | 2020-09-11 00:20 | NUR ---
ROUNDED ON PT, SBA WITH FWW TO BATHROOM TO VOID AND BACK TO BED. RT KRISTY IN ROOM FOR SCHEDULED BREATHING TREATMENT. NO ADDITIOANL NEEDS VERBALIZED. CALL LIGHT IN REACH.
--- NOTE | 2020-09-11 03:10 | NUR ---
PT RESTING IN BED WITH EYES CLOSED. RESPIRATIONS EVEN AND UNLABORED. NO DISTRESS NOTED. CALL LIGHT IN REACH.
--- NOTE | 2020-09-11 05:00 | NUR ---
ASSESSMENT COMPLETE, NO NEW CHANGES OR CONCERNS. VSS, I&O'S COMPLETE. HOME CPAP MACHINE OFF AT THIS TIME. SOB WITH EXERTION, LUNG SOUNDS CLEAR. FRESH WATER AT BEDSIDE. NO FURTHER NEEDS, CALL LIGHT IN REACH.
--- NOTE | 2020-09-11 06:44 | NUR ---
PT HAD A EDITH, SLEPT WELL THIS SHIFT WITH USE OF HOME CPAP MACHINE. A/OX4 AMD CALLS APPROPRIATELY. 1PA WITH FWW. REGULAR DIET, TOLERATING WELL. VOIDING QS, NO BM. VSS, SOB WITH EXERTION. LUNG SOUNDS CLEAR. DENIED PAIN THIS SHIFT.
--- NOTE | 2020-09-11 07:35 | NUR ---
BEDSIDE REPORT...PT RESTING IN BED EYES CLOSED RR EVEN AT 18 BPM, NO DISTRESS NOTED PT APPEARS TO BE SLEEPING.
--- NOTE | 2020-09-11 08:42 | NUR ---
PT UP TO RECLINER, TOLERATED ACTIVITY WELL. NO SOB NOTED. ON ROOM 95% OXYGEN SATURATION.
--- NOTE | 2020-09-11 09:25 | NUR ---
both nares swabbed for covid-19 without complication. sample taken to [facility].
--- NOTE | 2020-09-13 07:44 | PATH ---
[facility] [address], [place] [address] Signed ORDERING PHYSICIAN: Adria Christine MD PATIENT NAME: CASPER GEORGE GENDER: F : 1940 Prior History: DATE CASE NUM ADEQUACY DIAGNOSIS HPV RESULTS PHYSICIAN The 5 most recent reports are included. This history does not include results of pap smears performed at another laboratory. SPECIMEN(S): MOLECULAR PATHOLOGY RESULTS: SARS-CoV-2 Not Detected ADDITIONAL NOTES.: The [employer] Fusion SARS-CoV-2 Assay is a multiplex real-time PCR (RT-PCR) in vitro diagnostic test intended for the qualitative detection of RNA from SARS-CoV-2 from individuals who meet COVID-19 clinical and/or epidemiological criteria. In general, SARS-CoV-2 RNA can be detected during the acute phase of infection. Positive results indicate the presence of SARS-CoV-2 RNA. Clinical correlation with patient history and other diagnostic information is necessary to determine patient infection status. Positive results do not rule out bacterial infection or co-infection with other viruses. Negative results do not preclude SARS-CoV-2 infection and should not be used as the sole basis for patient management decisions. Negative results must be combined with other clinical observations, patient history, and epidemiological information. The [employer] Fusion SARS-CoV-2 Assay is not yet approved or cleared by the [place] FDA. When there are no FDA-approved or cleared tests available, and other criteria are met, FDA can make tests available under an emergency access mechanism called an Emergency Use Authorization (EUA). The EUA for this test is supported by the Customer Servicer of Health and Human Service's (HHS's) declaration that circumstances exist to justify the emergency use of in vitro diagnostics for the detection and/or diagnosis of the virus that causes COVID-19. This EUA will remain in effect for the duration of the COVID-19 declaration justifying emergency of IVDs, unless it is terminated or PATIENT NAME: CASPER GEORGE PATHOLOGY DATE OF : 42 REPORT #: [id number] PHYSICIAN: MAGALIE VERDUZCO PCP: SHERRIE MADERA MD REPORT IS CONFIDENTIAL AND NOT TO BE RELEASED WITHOUT AUTHORIZATION [facility] [address], [place] [address] Signed revoked by FDA, after which the test may no longer be used. The [employer] Fusion SARS-CoV-2 Assay is for use only under EUA in US laboratories certified under the Clinical Laboratory Improvement Amendments of 1988 (CLIA) to perform high complexity tests. [facility] is certified under CLIA to perform high complexity clinical laboratory testing. Sunil Rasmussen PERFORMING LABORATORY.: Molecular testing was performed by [facility] [id number] [place] [address] ([employer]: Xavier Anderson D.O.; CLIA#: [id number]) Diagnostician: System Interface Pathologist Electronically Signed 09/13/2020 Copies: ~ PATIENT NAME: CASPER GEORGE PATHOLOGY DATE OF : 42 REPORT #: [id number] PHYSICIAN: MAGALIE VERDUZCO PCP: SHERRIE MADERA MD REPORT IS CONFIDENTIAL AND NOT TO BE RELEASED WITHOUT AUTHORIZATION
== END 2020-09-11 09:35 | disposition swing bed (61) ==
LOC: MS 16:59
PROVIDERS: ADMIT Student in an Organized Health Care Education/Training Program; ATTEND Student in an Organized Health Care Education/Training Program
DX: J45.51 Severe persistent asthma with (acute) exacerbation (principal); I10 Essential (primary) hypertension; F32.9 Major depressive disorder, single episode, unspecified; Z66 Do not resuscitate; Z86.73 Personal history of transient ischemic attack (TIA), and cerebral infarction without residual deficits; Z79.899 Other long term (current) drug therapy; Z79.01 Long term (current) use of anticoagulants; Z79.52 Long term (current) use of systemic steroids; Z20.828 Contact with and (suspected) exposure to other viral communicable diseases
CPT/HCPCS: 71260; 80053; 83735; 84100; 85025; 94640; 94760; 96372; 96374; 96376; 97162; 97165; C9803; G0378; J1650; J2920; J7121; J7512; Q9967; U0003

== ENCOUNTER 2020-09-11 09:36 | Inpatient (IN) | payer MEDICARE ==
[~2020-09-11] VITALS: Ht 165.1 cm; Wt 98.2 kg
--- NOTE | 2020-09-11 13:45 | NUR ---
CONNECTED WITH PT SHE WAS AMBULATING IN [place] WITH P.T. GAVE ENCOURAGEMENT, WILL CONINUE TO FOLLOW.
--- NOTE | 2020-09-11 13:58 | NUR ---
PT AMBULATED WITH STANDBY ASSIST FULL LARGE LAP ON MED/SURG UNIT WITH 5 BREAKS TO SIT IN WHEELCHAIR. PT TOLERATED WELL WITH MINIMAL INCREASE IN RESP. RATE. STEADY GAIT WITH FWW.
--- NOTE | 2020-09-11 15:13 | NUR ---
PT UP IN RECLINER REPOSITIONED AT THIS TIME. NO COMPLAINTS. VERBALIZED NO NEEDS AT THIS TIME.
--- NOTE | 2020-09-11 16:10 | NUR ---
Spoke with Jaqueline. She failed discharge to home and was sent to the ER by her room server. Pt. has just walked PT and is very short of breath. Discussed TC and updated this is program for rehab and for pt's who are not quite ready to go home. Discussed need to be up for meals and to wear street clothing. Gave her a list of rehabs in the area and brochure for TC.
--- NOTE | 2020-09-11 16:57 | NUR ---
PT RESTING IN BED ALERT AND ORIENTED, NEB TREATMENT WAS GIVEN AT 1600, PT REQUESTS FRESH WATER, PROVIDED. WILL ASSIST PT WITH AMBULATION IN HALLS AFTER ROOM IS CLEAR.
--- NOTE | 2020-09-11 18:34 | NUR ---
PATIENT AWAKE IN BED. CALL LIGHT WITHIN REACH. NO FURTHER NEEDS AT THIS TIME.
--- NOTE | 2020-09-11 18:40 | NUR ---
PT HAS BEEN AMBULATING IN HALLS THREE TIMES ALSO WITH PHYSICAL THERAPY. CHANGED TO SWINGBED, SHE HAS REPORTED NO PAIN, ON ROOM AIR IMPROVED TOLERANCE FOR ACTIVITY, TOLERATING DIET WELL. PT CONCERNED ABOUT NO BM TODAY, NIO PLACED PER BOWEL REGIMEN.
--- NOTE | 2020-09-11 19:30 | NUR ---
PT OVERALL SEEMS TO BE DOING WELL. V/S ARE WDL, UPPER LOBES ARE CLEAR, OTHER LOBES HAVE SOME SLIGHT COARSNESS PRESENT. PT AAOX4, NO PERIPHERAL EDEMA NOTED, BOWEL TONES ACTIVE. NO NEW CONCERNS NOTED AT THIS TIME. PT DOES HAVE SOB WITH WALKING.
--- NOTE | 2020-09-11 23:33 | NUR ---
PT AT THIS TIME IS SLEEPING. NO NEW CONCERNS WERE NOTED.
--- NOTE | 2020-09-12 01:36 | NUR ---
PT IS SLEEPING. C-PAP ON PT. NO NEW CONCERNS NOTED.
--- NOTE | 2020-09-12 02:41 | NUR ---
PT CALLED FOR WARM BLANKETS. BLANKETS WERE PROVIDED. PT BACK TO SLEEP AT THIS TIME.
--- NOTE | 2020-09-12 05:00 | NUR ---
PT HAS BEEN SLEEPING ALL NIGHT. V/S ARE WDL, RLL WAS A BIT COARSE AT START OF SHIFT, ALL OTHER LOBES WERE CLEAR, URINE OUTPUT IS ADEQUATE AND SO IS HER PO INTAKE. NO OTHER CONCERNS WERE NOTED THIS SHIFT.
--- NOTE | 2020-09-12 07:39 | NUR ---
Patient in bed resting, respirations even and non labored. Patient denies pain and sob. Per pt report she has ordered her breakfast and has no current needs. Personal supplies and call light within reach.
--- NOTE | 2020-09-12 09:02 | NUR ---
MED REC COMPLETE
--- NOTE | 2020-09-12 14:08 | NUR ---
PT ALERT, ORIENTED AND SITTING IN CHAIR DRESSED IN STREET CLOTHES. HAD PLEASANT VISIT WITH PT. RECENTLY MOVED HERE FROM [place] TO BE WITH FAMILY FOLLOWING OF HER . PT MISSES [place], BUT LIKES BEING WITH FAMILY HOPES TO BE WELL ENOUGH TO RETURN FOR VISIT. PT REQUESTED VISIT FROM FR EDDY. INFORMED HIM HE WILL VISIT. PT STATED STAFF HAVE BEEN VERY HELPFUL AND LEFT PT WITH A GGatoPOST, JOON AND GERMAIN. WILL FOLLOW
--- NOTE | 2020-09-12 15:47 | NUR ---
Patient in bed resting, respirations even and non labored. Pt denies pain at this time. Pt recently up with AIR DRIER walking in hallway; tolerating her walks well per report. No needs at this time.
--- NOTE | 2020-09-12 16:07 | NUR ---
Saw pt walking in [place] earlier with PT. Walking well with walker. Went to patients room and she is sleeping, not awakened.
--- NOTE | 2020-09-12 19:09 | NUR ---
RECEIVED REPORT FROM YUMIKO SANCHEZ. pt RESTING IN BED. NO REQUESTS AT THIS TIME. DISCUSSED PLAN OF CARE. CALL LIGHT WITHIN REACH. WHITEBOARD UPDATED.
--- NOTE | 2020-09-12 20:06 | NUR ---
IN TO DO ASSESSMENT. PROVIDED MED PER REQUEST. REFUSED BOWEL MEDS SHE HAS HAD MULTIPLE BOWEL MOVEMENTS. REPORTED THAT HER SOB HAS "IMPROVED A LOT" ESPECIALLY WITH WALKING IN THE HALLS. VITALS DONE. PROVIDED WATER. pt INDEPENDENT IN THE ROOM. NO REQUESTS AT THIS TIME. CALL LIGHT WITHIN REACH.
--- NOTE | 2020-09-12 22:40 | NUR ---
ROUNDED ON pt, RESTING IN BED WITH EYES CLOSED, RESPIRATIONS REGULAR. CALL LIGHT WITHIN REACH.
--- NOTE | 2020-09-13 00:30 | NUR ---
ROUNDED ON pt. RESTING IN BED WITH CPAP ON. RESPIRATIONS REGULAR. CALL LIGHT WITHIN REACH.
--- NOTE | 2020-09-13 03:48 | NUR ---
ROUNDED ON pt. RESTING IN BED WITH CPAP ON. CALL LIGHT WITHIN REACH.
--- NOTE | 2020-09-13 06:56 | NUR ---
CHECKED ON pt. RESTING IN BED WITH EYES CLOSED, BREATHING EQUAL AND UNLABORED. ON RA. LIGHTS OFF IN ROOM.
--- NOTE | 2020-09-13 07:50 | NUR ---
SHIFT REPORT FROM NURSE BAPTISTE. PT LAYING BED, REPORTS SLEEPING WELL LAST NIGHT. REQUESTS COFFEE WHICH IS PROVIDED. NO FURTHER NEEDS AT THIS TIME.
--- NOTE | 2020-09-13 09:17 | NUR ---
VITALS AND I&OS CHARTED. STUDENT AND O/T ASSISTING WITH SHOWER.
--- NOTE | 2020-09-13 10:01 | NUR ---
IN ROOM FOR MORNING MEDS AND ASSESSMENT. SN GUTIÉRREZ IN ROOM ALSO. pt IS UP IN CHAIR ANTICIPATING PT. VSS. PT REQUEST PRN TUMS AT THIS TIME. CALL LIGHT WITHIN REACH.
--- NOTE | 2020-09-13 10:38 | NUR ---
PRN TUMS ADMINISTERED. pt HAD BEEN UP WITH PT. PASTORAL CARE IN THE ROOM . NO FURTHER NEEDS AT THIS TIME.
--- NOTE | 2020-09-13 13:58 | NUR ---
CHECKED WITH PT-SHE WOULD LIKE THE PELLET POST INSPECTOR TO VISIT AGAIN TODAY. WILL INFORM'FR EDDY. WILL FOLLOW
--- NOTE | 2020-09-13 14:07 | NUR ---
I&OS CHARTED, PATIENT AMBULATING CONN[place]
--- NOTE | 2020-09-13 14:17 | NUR ---
pt UP IN HALLWAY WORKING WITH PT. pt REPORTS TUMS HELPED HER INDIGESTION EARLIER.
--- NOTE | 2020-09-13 14:50 | NUR ---
Spoke with Jaqueline and she states she has improved. Feels she could possible go home today. Discussed I can speak with PT and Dr. Murphy to see if they feel she may be ready tomorrow. Discussed her meds and confirmed with pharmacy her medications will be fill and ready at [facility], unlike last dc where one was not ready for 4 days after being confirmed by our pharmacy. Spoke with Sheron from PT and she does not feel pt is ready for dc tomorrow, feels it would be better if she can wait until Friday to be able to progress with walker. Spoke with Dr. Murphy and she feels she could dc tomorrow, she states her concern as we have increased number of covid pt's and this is a higher risk for Jaqueline. Returned and spoke with Jaqueline, she will follow suggestions, as she does not want to readmit again. I will give Medicare discharge letter, she will work with PT tomorrow to see how well she does. May be able to dc home tomorrow.
--- NOTE | 2020-09-13 17:28 | NUR ---
Assumed care of pt at this time. In room to meet pt and explain transfer of care. Pt sitting up in chair, having dinner, table and call light within reach.
--- NOTE | 2020-09-13 18:01 | NUR ---
PATIENT AWAKE IN CHAIR, I&OS CHARTED. FRESH ICE WATER GIVEN. CALL LIGHT IN REACH, NO OTHER NEEDS AT THIS TIME
--- NOTE | 2020-09-13 18:36 | NUR ---
Pt on swing bed status, post asthma exacerbation. Pt alert and oriented throughout shift, and independent in the room. Pt reports no pain or nausea this evening (during my time caring for her).
--- NOTE | 2020-09-13 19:05 | NUR ---
REPORT RECEIVED FROM AMBROSIO CALDERON. PT RESTING IN BED. PT REQUESTS MEDS AND VITALS BEFORE HER BREATHING TREATMENTS. NO OTHER NEEDS AT THIS TIME. CALL LIGHT IN REACH.
--- NOTE | 2020-09-13 19:53 | NUR ---
SCHEDULED MEDS PROVIDED. VS AND I&O COMPLETED. PT DECLINES MIRALAX. PT DENIES ALL OTHER NEEDS. RT IN ROOM TO PERFORM TX. CALL LIGHT IN REACH.
--- NOTE | 2020-09-13 21:22 | NUR ---
ASSESSMENT COMPLETED. GCS 15, A&O X4. LUNGS CLEAR IN UPPER LOBES AND DIMINISHED IN LOWER LOBES. HEART TONES REGULAR. ABD SOFT, NON TENDER, PT STATES NORMAL. CMS INTACT. NO NEEDS AT THIS TIME. CALL LIGHT IN REACH.
--- NOTE | 2020-09-13 23:19 | NUR ---
PT RESTING IN BED, EYES CLOSED. CPAP ON. CALL LIGHT IN REACH.
--- NOTE | 2020-09-14 02:08 | NUR ---
PT RESTING IN BED, EYES CLOSED. RR EVEN, UNLABORED. CALL LIGHT IN REACH.
--- NOTE | 2020-09-14 03:59 | NUR ---
PT RESTING IN BED, EYES CLOSED. CPAP ON. CALL LIGHT IN REACH.
--- NOTE | 2020-09-14 06:31 | NUR ---
RN ABLE TO HAVE PT VERBILIZE HOW MANY VOID DURING THE NIGHT, AMT DOCUMENTED
--- NOTE | 2020-09-14 07:15 | NUR ---
In room for shift report from Ritika CALDERON. Report included that: Pt had an uneventful evening. Pt was able to rest and use call light appropriately. Pt anticipating DC within the next day or so, depending on how well she can tolerate her physical therapies today. Pt in bed, alert and oriented, pleasant upon greeting. Pt has table and call light within reach.
--- NOTE | 2020-09-14 09:30 | NUR ---
Spoke with Jaqueline during IDT. States she is ready for dc tomorrow after speaking with PT.
--- NOTE | 2020-09-14 09:38 | NUR ---
UP EARLY THIS MORNING TO RECLINER, MINIMAL ASSIST, PT IN GOOD SPIRITS, DENIES SOB, GOOD APPETITE. USES CALL LIGHT APPROP, CONT. SCHEDULED NEBS.
--- NOTE | 2020-09-14 09:45 | NUR ---
In room for rounding. Pt working with occupational therapy in room.
--- NOTE | 2020-09-14 11:15 | NUR ---
To room for rounding. Pt working with physical therapy in hallways.
--- NOTE | 2020-09-14 13:25 | NUR ---
Pt ambulating in halls with physical therapy.
--- NOTE | 2020-09-14 14:00 | NUR ---
To room for rounding. Pt in chair, watching TV. Pt denies pain and nausea. Fresh water given. No other needs at this time. Pt in chair, table and call light within reach.
--- NOTE | 2020-09-14 17:00 | NUR ---
To room for rounding. Pt denies pain and nausea at this time. Pt sitting in chair having dinner. Pt reports no needs at this time. Pts table and call light within reach.
--- NOTE | 2020-09-14 18:28 | NUR ---
Pt on transitional care status for care after an asthma exacerbation. Pt working diligently with Physical and occupational therapy. Pt anticipating DC within the next day or so. Pt getting duo neb txs and uses CPAP at night. Pt has had an uneventful day. Pt is alert oriented and pleasant throughout the entire day. Pt uses call light appropriately.
--- NOTE | 2020-09-14 19:22 | NUR ---
SHIFT REPORT RECEIVED FROM AMBROSIO CALDERON. PT RESTING IN BED, WATCHING TV. NO NEEDS AT THIS TIME. CALL LIGHT IN REACH.
--- NOTE | 2020-09-14 20:00 | NUR ---
ASSESSMENT, VS AND I&O COMPLETED. GCS 15, A&O X4. LUNGS CLEAR IN UPPER LOBES CRACKLES IN LOWER LOBES. HEART TONES REGULAR. ABD SOFT, NONTENDER, PT STATES NORMAL. CMS INTACT. PT STATES SHE ONLY HAS SOB WHEN WORKING WITH PT NOW. ICE WATER PROVIDED. NO OTHER NEEDS AT THIS TIME. CALL LIGHT IN REACH.
--- NOTE | 2020-09-14 23:02 | NUR ---
PT RESTING IN BED, EYES CLOSED. CPAP ON. CALL LIGHT IN REACH.
--- NOTE | 2020-09-15 01:22 | NUR ---
PT RESTING IN BED, EYES CLOSED. RR EVEN, UNLABORED. CPAP ON. CALL LIGHT IN REACH.
--- NOTE | 2020-09-15 04:53 | NUR ---
PT SLEPT WELL THIS SHIFT, USED CPAP. INDEPENDENT IN ROOM. DENIES SOB WITH MILD ACTIVITY. LUNGS CLEAR IN UPPER LOBES, FINE CRACKLES IN LOWER LOBES. PT HAS BEEN ON CPAP, RA. VSS, UOS.
--- NOTE | 2020-09-15 06:17 | NUR ---
I&O COMPLETED. COFFEE PROVIDED PER PT REQUEST. NO OTHER NEEDS AT THIS TIME. CALL LIGHT IN REACH.
--- NOTE | 2020-09-15 07:15 | NUR ---
BEDSIDE HANDOFF REPORT RECEIVED FROM BENCH TECHNICIAN RN. PT RESTING IN BED. PT DENIES NEEDS AT THIS TIME.
--- NOTE | 2020-09-15 09:30 | NUR ---
PT SITTING IN CHAIR. MARKETING RESEARCH COORDINATOR AT BEDSIDE FOR NEBS. PT ON ROOM AIR LUNG SOUNDS CLEAR, DENIES SOB. PT TOLERATING DIET, WITHOUT NAUSEA, BOWEL TONES ACTIVE, PT REDUSED SENNA BUT TOOK MIRALAX SCHEDULED. PT WITHOUT EDEMA, CMS INTACT. PT PLANNING FOR DC TODAY. WITHOUT IV ACCESS. DISCUSSED PLAN OF CARE. PT DENIES OTHER NEEDS AT THIS TIME.
--- NOTE | 2020-09-15 10:33 | NUR ---
PATIENT AMBULATING CONNORS WITH STAFF.
--- NOTE | 2020-09-15 11:00 | NUR ---
PATIENT AWAKE IN CHAIR, DRESSED IN PERSONAL CLOTHING. FRESH COFFEE PROVIDED. I&OS CHARTED
--- NOTE | 2020-09-15 11:05 | NUR ---
SPOKE WITH PATIENT IN ROOM. SHE STATES SHE IS PLANNING ON GOING HOME AROUND 1PM. SON-IN-LAW PICKED UP MEDICATIONS ALREADY. DISCUSSED FOR HER TO GO THROUGH THEM WITH HER DISCHARGE PAPERS AT HOME AND IF THERE IS ANY QUESTIONS OR CONCERNS TO CALL THE NURSES BACK HERE, OR THE PHARMACY HERE. SHE STATES SHE WILL. SHE STATES SHE FEELS "SO MUCH BETTER". SHE FEELS VERY CONFIDANT IN HER PCP AND WILL FOLLOW UP WITH HIM SCHEDULED. SHE STATES SHE IS SO GLAD SHE CAME AND STAYED THESE FEW DAYS SHE FEELS "SO MUCH BETTER TO GO HOME" THIS TIME. SHE HAS NO FURTHER QUESTIONS. HER FAMILY IS PROVIDING TRANSPORATION HOME.
--- NOTE | 2020-09-15 11:54 | NUR ---
PT TO DC TODAY-DRESSED AND PACKING. GAVE BLESSING
[2020-09-15] MEDS ORDERED: PREDNISONE20 MG PO (12:07)
--- NOTE | 2020-09-15 12:10 | NUR ---
PT RESTING IN CHAIR, LUNCH TRAY PROVIDED. PT DENIES OTHER NEEDS AT THIS TIME.
--- NOTE | 2020-09-15 16:05 | NUR ---
PT CALLED AND REPORTED THAT [facility] HAD FILLED AN OLD PRESCRIPTION FOR PREDNISONE, REQUESTING RN TO CALL [facility] TO VERIFY RX. [facility] CALLED AND STATED RX WAS TRANSMITTED AFTER PT SON HAD PICKED UP PRESCRIPTIONS AND NEW ORDER IS READY FOR DEMONSTRATOR SEWING TECHNIQUES. CALLED PT AND SHE WILL GET NEW PRESCRIPTION TOMORROW.
== END 2020-09-15 14:44 | disposition home or self-care (01) | DRG 203 ==
LOC: MS 09:36
PROVIDERS: ADMIT Student in an Organized Health Care Education/Training Program; ATTEND Student in an Organized Health Care Education/Training Program
DX: J45.51 Severe persistent asthma with (acute) exacerbation (principal); Z20.828 Contact with and (suspected) exposure to other viral communicable diseases; I10 Essential (primary) hypertension; R53.1 Weakness; F32.9 Major depressive disorder, single episode, unspecified; Z86.73 Personal history of transient ischemic attack (TIA), and cerebral infarction without residual deficits; Z66 Do not resuscitate; Z87.891 Personal history of nicotine dependence; Z79.02 Long term (current) use of antithrombotics/antiplatelets; Z79.52 Long term (current) use of systemic steroids; Z79.899 Other long term (current) drug therapy
CPT/HCPCS: 94640; 97110; 97116; 97535; 97537; J1650; J7512

== ENCOUNTER 2020-12-04 15:54 | Inpatient (IN) | payer MEDICARE ==
[~2020-12-04] VITALS: Ht 165.1 cm; Wt 103.6 kg
--- NOTE | ~2020-12-04 | DS ---
[facility] [address], [place] [address] Draft ADMISSION DATE: 12/04/2020 DISCHARGE DATE: 12/14/2020 REASON FOR ADMISSION: This 79-year-old morbidly obese white woman has numerous medical problems including reactive airways, multiple episodes of hospitalization by her primary provider, Dr. Madera. She presented to the emergency room with abdominal pain, nausea and vomiting. CT scans performed showing signs of bowel obstruction of uncertain etiology. She does have prior history of cholecystectomy as well as abdominal hysterectomy. She is admitted for further evaluation and care. PERTINENT PHYSICAL EXAMINATION: GENERAL: She is an obese white woman with nice hair, who did not have an exacerbation of asthma currently. CHEST: Shows no wheezing. ABDOMEN: Markedly distended and diffusely tender. EXTREMITIES: Showed no clubbing, cyanosis, or edema. HOSPITAL COURSE: She was admitted, given intravenous fluids and nasogastric tube decompression. A CT scan was reviewed in detail showing an area of decompression and transition in the lower abdomen. A nasogastric tube decompression failed to cause clinical relief of her obstruction and increasing but and not decreasing abdominal tenderness. A small-bowel follow-through was performed showing notable delay of passage of contrast from stomach throughout the remaining bowel and never complete passage to the cecum. On that basis on December 06, 2020, she underwent laparotomy with lysis of an omental adhesion causing complete obstruction. Decompression of small bowel was undertaken and irrigation of the abdomen performed. She did not require segmental bowel resection. Postoperatively, she was much improved. Nasogastric tube was removed as she had minimal output after about 24 hours. She was begun on a liquid diet, which she tolerated well initially. Her postoperative care was taken over by Dr. Woodson on December 08, 2020, as I needed to leave town. The patient did have some flatus but began developing distention and tympanitic abdomen. She had no signs of tenderness or peritoneal signs. She did require replacement of the nasogastric tube as she developed clinical findings of an ileus. In a few days, the ileus seemed to resolve. The nasogastric tube was removed. She was begun on a clear liquid diet, which she tolerated ultimately advanced to a regular diet. PATIENT NAME: CASPER GEORGE DISCHARGE SUMMARY DATE OF : 42 REPORT #: [id number] PHYSICIAN: GEOVANI MEJIA MD PCP: SHERRIE MADERA MD REPORT IS CONFIDENTIAL AND NOT TO BE RELEASED WITHOUT AUTHORIZATION [facility] [address], [place] [address] Draft By the day of discharge, she is ambulating well, tolerating a regular diet. She has had bowel movements. Abdominal distention has resolved. She has had no further exacerbation of her underlying significant COPD/asthma. DISCHARGE MEDICATIONS: Will include Tylenol 1 g p.o. every six hours as needed for pain #60. She will resume her usual medicines, which include: 1. Paxil 40 mg p.o. daily. 2. Plavix 75 mg p.o. daily. 3. Garlic extract one tablet p.o. daily. 4. Fish oil tablet one cap p.o. daily. 5. Vitamin C 500 mg p.o. daily. 6. Iron and vitamin D3 complex one tablet p.o. daily. 7. Tumeric root extract 500 mg p.o. daily. 8. Probiotic lactobacillus acidophilus one capsule p.o. daily. 9. Lisinopril 10 mg p.o. daily. 10. Oscillococcinum cap as needed for cough. 11. Albuterol ProAir two puffs q.4 hours as needed for shortness of breath. 12. Budesonide inhalation b.i.d. 13. Nucala (mepolizumab) 100 mg subcutaneously every month. DISCHARGE DIAGNOSES: 1. Small bowel obstruction related to omental adhesion, status post laparotomy, lysis of adhesion, and alevism of GI continuity. 2. Severe episodic exacerbation of asthma. 3. Obesity. 4. Hypertension. 5. Distant history of hysterectomy. FOLLOWUP PLAN: She is return to see me in approximately a month. Arrangements will be made on Friday for that purpose. She was instructed to lift no more than 20 pounds for the next month and is permitted to shower and should walk on a daily basis. Geovani Mejia MD PATIENT NAME: CASPER GEORGE DISCHARGE SUMMARY DATE OF : 42 REPORT #: [id number] PHYSICIAN: GEOVANI MEJIA MD PCP: SHERRIE MADERA MD REPORT IS CONFIDENTIAL AND NOT TO BE RELEASED WITHOUT AUTHORIZATION [facility] [address] [place] [id number] Draft /MODL /[id number] cc: MD Sherrie Lin MD Copies: CARLOS WOODSON MD, LOHITH VEERAPPA MD ~ PATIENT NAME: CASPER GEORGE DISCHARGE SUMMARY DATE OF : 42 REPORT #: [id number] PHYSICIAN: GEOVANI MEJIA MD PCP: SHERRIE MADERA MD REPORT IS CONFIDENTIAL AND NOT TO BE RELEASED WITHOUT AUTHORIZATION
[2020-12-05] MEDS ORDERED: PREDNISONE10 MG PO (08:24)
--- NOTE | 2020-12-05 16:57 | EKG ---
[facility] [address] [place] [address] Signed Marked sinus bradycardia with 1st degree AV block Abnormal ECG When compared with ECG of 02-SEP-2020 10:48, RI interval has increased Vent. rate has decreased BY 31 BPM Confirmed by SHERRIE MADERA MD ([id number]) on 12/05/2020 4:56:55 PM Electronically Signed By: SHERRIE MADERA MD 12/05/20 1657 PATIENT NAME: CASPER GEORGE Electrocardiogram DATE OF : 42 PHYSICIAN: SHERRIE MADERA MD REPORT #: [id number] REPORT IS CONFIDENTIAL AND NOT TO BE RELEASED WITHOUT AUTHORIZATION
--- NOTE | 2020-12-05 18:51 | HP ---
[facility] [address], [place] [address] Signed ADMISSION DATE: 12/04/2020 REASON FOR ADMISSION: Small bowel obstruction. HISTORY OF PRESENT ILLNESS: This obese 79-year-old white woman presented to the emergency room having a week more less of increasing abdominal pain particularly when supine at night. She began having nausea and vomiting, presents to the emergency room where she was thoroughly evaluated by Dr. Rivero, noted to have abdominal distention. A CT scan was ultimately performed, which showed small bowel obstruction with a transition point of small bowel in the left lower abdomen. The patient has a past medical history of appendectomy as well as hysterectomy and open cholecystectomy. She has never had bowel obstruction in the past. She has immediately felt much improved with a nasogastric tube for decompression of her stomach. Approximately 800 mL was in the nasogastric tube receptacle at this time. She is admitted for further evaluation and care. PAST MEDICAL HISTORY: Includes surgical intervention as previously noted. The patient has sleep apnea, for which she has a CPAP device. Additionally, she has low-grade hypoxemia, self-reported and verified today. 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 SOCIAL HISTORY: She lives in a trailer in . She lived in [place] for many years. She has a disabled daughter living with her temporarily. Also her daughter is living at . She has another daughter, who lives in [place] and two sons. She did lose a daughter in the past, a motor vehicle accident. She does not smoke or drink alcohol, though she previously smoked in the past. PAST SURGICAL HISTORY: Includes bilateral shoulder operation, right ankle surgery, cholecystectomy, open technique, appendectomy, hysterectomy, and right heel fracture repair. MEDICATIONS: Include budesonide 0.5 mg inhaler b.i.d. Electronically Signed By: GEOVANI MEJIA MD 12/05/20 1851 PATIENT NAME: CASPER GEORGE HISTORY AND PHYSICAL DATE OF : 42 REPORT #: [id number] PHYSICIAN: GEOVANI MEJIA MD PCP: SHERRIE MADERA MD REPORT IS CONFIDENTIAL AND NOT TO BE RELEASED WITHOUT AUTHORIZATION [facility] [address], [place] [address] Signed Other medicines include: 1. Paroxetine (Paxil) 40 mg p.o. daily. 2. Plavix 75 mg p.o. daily. 3. Lisinopril 10 mg p.o. daily. 4. Albuterol inhaler two puffs every four hours p.r.n. shortness of breath. Additional supplements she takes include tumeric root extract, Oscillococcinum tablets, garlic each day, omega-3 fish oil tablets, vitamin C, multivitamin, and lactobacillus probiotic. REVIEW OF SYSTEMS: Denies any shortness of breath at this time or chest pain, is not having any wheezing. She is a bit tired as it is past her usual bedtime of eight o'clock. PHYSICAL EXAMINATION: GENERAL: This is a pleasant white woman, who does not appear cyanotic in any way. She is somewhat obese. HEENT: Trachea is midline. Mucous membranes are slightly dry. Nasogastric tube was in place draining moderate green fluid. CHEST: Shows no sign of tachypnea. HEART: Pulses regular. ABDOMEN: Rather distended. Palpation reveals no focal tenderness. There is no ascites. EXTREMITIES: Show no clubbing, cyanosis, or edema. A CT scan and plain abdominal x-ray reviewed in detail. Small bowel obstruction is noted as described with transition point in the left lower abdomen. There was surgical evidence of cholecystectomy, mild intrahepatic ductal dilatation is noted. There is a 6 mm cystic lesion of the junction of the head and body of the pancreas. There is colonic diverticulosis and a 3.4 cm right adnexal cyst. LABORATORY STUDIES: Current lab studies show white count of 9.4, hematocrit 41.3, and platelets 200,000. Electrolytes normal, creatinine 0.72. Liver enzymes normal. Albumin 4.2. ASSESSMENT: The patient has small bowel obstruction clinically and radiographically. A nasogastric tube is already provided for marked relief of her symptoms. She will be admitted for intravenous fluid resuscitation and nasogastric tube decompression. She was permitted to use her CPAP and advised to use it and supplemental oxygen can be provided despite that. We will obtain an abdominal plain x-ray in the morning and compare to plain x-ray she Electronically Signed By: GEOVANI MEJIA MD 12/05/20 0144 PATIENT NAME: CASPER GEORGE HISTORY AND PHYSICAL DATE OF : 42 REPORT #: [id number] PHYSICIAN: GEOVANI MEJIA MD PCP: SHERRIE MADERA MD REPORT IS CONFIDENTIAL AND NOT TO BE RELEASED WITHOUT AUTHORIZATION [address] [address] Signed had tonight. I am hopeful and optimistic that her bowel obstruction may resolve with enteric decompression, IV fluids, and bowel rest. If not, she may ultimately require additional imaging study or even simply operative intervention. MD AMBROSE Payne/MODL /[id number] cc: Dr Mat Madera Copies: ~ Electronically Signed By: GEOVANI MEJIA MD 12/05/20 1851 PATIENT NAME: CASPER GEORGE HISTORY AND PHYSICAL DATE OF : 42 REPORT #: [id number] PHYSICIAN: GEOVANI MEJIA MD PCP: SHERRIE MADERA MD REPORT IS CONFIDENTIAL AND NOT TO BE RELEASED WITHOUT AUTHORIZATION
--- NOTE | 2020-12-07 17:33 | OR ---
[facility] [address], [place] [address] Signed DATE OF OPERATION: 12/06/2020 SURGEON: Geovani Mejia MD PREOPERATIVE DIAGNOSES: 1. Small-bowel obstruction without relief. 2. Asthma, obesity, and multiple comorbidities. POSTOPERATIVE DIAGNOSES: 1. Small-bowel obstruction related to omental adhesions, left lower quadrant. 2. Small right-sided ovarian cyst. PROCEDURES: Exploration of abdomen with lysis of omental adhesion causing obstruction, decompression of small bowel, and irrigation of abdomen. ANESTHESIA: General endotracheal, Geovani Young CRNA INDICATIONS: This 79-year-old morbidly obese white woman has numerous medical problems including reactive airways (asthma requiring multiple hospitalizations in recent times). She is a patient of Dr. Madera. She presents to the emergency room on December 04, 2020 with abdominal pain, nausea, vomiting. A CT scan performed showed findings of a bowel obstruction of uncertain etiology. The patient has had prior history of cholecystectomy as well as abdominal hysterectomy and other procedures. Nasogastric tube decompression and fluid resuscitation failed to cause clinical relief of obstruction based on clinical findings and abdominal x-ray. Yesterday, she underwent a small-bowel follow-through (surgeon's small-bowel follow-through), which was notable for delay of passage of contrast from the stomach throughout the bowel, but there was never complete passage actually to the cecum and therefore, a complete bowel obstruction is noted. She does have increasing abdominal tenderness and I have recommended exploration and remedy of the small bowel obstruction, but whatever method means necessary. The risks of bleeding, infection, need for bowel resection, failure to cure the problem, and of course cardiovascular complications related to underlying medical problems were all reviewed in detail. She understands and wished to proceed. FINDINGS: She tolerated intubation and extubation well and was hemodynamically stable throughout the operation. A low midline incision was used for entry to the abdomen. Incision Electronically Signed By: GEOVANI MEJIA MD 12/07/20 1733 PATIENT NAME: CASPER GEORGE OPERATIVE REPORT DATE OF : 42 REPORT #: [id number] PHYSICIAN: GEOVANI MEJIA MD PCP: SHERRIE MADERA MD REPORT IS CONFIDENTIAL AND NOT TO BE RELEASED WITHOUT AUTHORIZATION [facility] [address], [place] [address] Signed extended cephalad somewhat. The bowel obstruction was noted to be in the left lower abdomen related to a dense omental adhesion to the retroperitoneum, which did cause a closed-loop obstruction of bowel. Once freed, the bowel was able to be mobilized more fully. Succus entericus was milked proximally and distally. Initially, an ischemic bowel from obstruction promptly improved and although still somewhat inflamed, showed no evident areas of necrosis that would require resection or other intervention. Additional evaluation showed a 3 to 4 cm simple cyst of the right ovary and surgical absence of the uterus. Omental adhesions on the right side of the abdomen were freed with electrocautery, so as to avoid other adhesion-related obstruction problems. She had diverticuli of the sigmoid and left colon. No sign of palpable mass. DESCRIPTION OF PROCEDURE: The patient was brought to the operating room, given a general endotracheal anesthetic without problem. Preoperative antibiotic cefoxitin was given as was intravenous hydrocortisone based on her prior steroid dependent COPD/asthma. A Vega catheter was placed. The abdomen was prepared with a chlorhexidine solution and draped sterilely. Previous incision in the midline was incised and dissection carried through the thick abdominal wall pannus and subcutaneous tissue with electrocautery. The abdomen was entered near the region of the umbilicus allowing fingers to protect the underlying viscera upon division of the midline fascia. Omental adhesions were noted to the lower aspect of the incision. A fair amount of inflammatory fluid was noted within the peritoneal cavity. This was suctioned free. Careful inspection was undertaken and there appeared to be fusion of omentum on the right side of the abdomen extending towards the pelvis. The bowel was proximally dilated and rather inflamed and was delivered out of the abdomen as much as possible. Further palpation revealed the site of obstruction to be a dense adhesive band from omentum in the left lower abdomen. The finger was placed beneath the omental adhesion and divided with electrocautery. Photograph was taken. This freed the bowel entirely. The bowel beyond this adhesive obstruction was entirely normal and decompressed. Segment of bowel was followed more distally, ultimately identifying the anti-mesenteric fat pad of Treves indicating the terminal ileum. Bowel was fully eviscerated. Further examination undertaken. Small bowel contents were milked in a retrograde fashion from the mid small bowel proximally to the stomach, which showed it to be draining quite well. Distal to that point, air and succus entericus were milked toward the cecum itself. Examination of the pelvis showed a palpable mass that proved to be a relatively simple-appearing right ovarian cyst about 3 cm in size. There was no sign of malignancy based on the appearance. The abdomen was copiously irrigated with warm saline solution containing antibiotics and the small-bowel returned naturally anatomically appropriate configuration. The omentum was more fully freed laterally, so as to avoid similar encumbrance in the future. The bowel was once again eviscerated, appeared to be somewhat ischemic in appearance. The mesentery was Electronically Signed By: GEOVANI MEJIA MD 12/07/20 1733 PATIENT NAME: CASPER GEORGE OPERATIVE REPORT DATE OF : 42 REPORT #: [id number] PHYSICIAN: GEOVANI MEJIA MD PCP: SHERRIE MADERA MD REPORT IS CONFIDENTIAL AND NOT TO BE RELEASED WITHOUT AUTHORIZATION [facility] [address] [place] [id number] Signed ascertained as to be appropriately positioned, so as to avoid torsion or volvulus. Re-introduction of the bowel contents of the abdomen was undertaken. Additional irrigation undertaken. Omentum was laid over the top of the abdominal viscera. The midline fascia was reapproximated with running bidirectional #1 PDS suture. Subcutaneous tissue irrigated and skin closed with running subcuticular 3-0 Vicryl. Steri-Strips were applied as was a silver sponge dressing. The patient tolerated procedure well. BLOOD LOSS: Minimal. COMPLICATIONS: None. MD AMBROSE Payne/NICOL /[id number] cc: Sherrie Madera MD Copies: SHERRIE MADERA MD ~ Electronically Signed By: GEOVANI MEJIA MD 12/07/20 1733 PATIENT NAME: CASPER GEORGE OPERATIVE REPORT DATE OF : 42 REPORT #: [id number] PHYSICIAN: GEOVANI MEJIA MD PCP: SHERRIE MADERA MD REPORT IS CONFIDENTIAL AND NOT TO BE RELEASED WITHOUT AUTHORIZATION
[2020-12-08] MEDS ORDERED: NUCALA100 MG/11 SUB-Q (09:29)
[2020-12-14] MEDS ORDERED: ACETAMINOPHEN500 MG PO (17:28)
== END 2020-12-14 18:00 | disposition home or self-care (01) | DRG 336 ==
LOC: ED 15:54 → MS 15:55
PROVIDERS: ADMIT Surgery; ATTEND Surgery
PROC: 5A09357 Assistance with Respiratory Ventilation, Less than 24 Consecutive Hours, Continuous Positive Airway Pressure (ICD-10-PCS; 2020-12-04)
PROC: 0DN80ZZ Release Small Intestine, Open Approach (ICD-10-PCS; principal; 2020-12-06 10:00)
DX: K56.50 Intestinal adhesions [bands], unspecified as to partial versus complete obstruction (principal); J45.901 Unspecified asthma with (acute) exacerbation; Z20.822 Contact with and (suspected) exposure to COVID-19; G47.30 Sleep apnea, unspecified; I10 Essential (primary) hypertension; F32.9 Major depressive disorder, single episode, unspecified; E66.01 Morbid (severe) obesity due to excess calories; K56.7 Ileus, unspecified; E87.6 Hypokalemia; Z86.73 Personal history of transient ischemic attack (TIA), and cerebral infarction without residual deficits; Z79.899 Other long term (current) drug therapy; Z79.02 Long term (current) use of antithrombotics/antiplatelets; Z79.51 Long term (current) use of inhaled steroids; Z68.38 Body mass index [BMI] 38.0-38.9, adult
CPT/HCPCS: 00790; 36415; 71045; 74018; 74022; 74177; 74250; 80048; 80053; 81001; 82247; 82465; 83615; 83690; 83735; 84100; 84478; 84550; 85025; 93005; 93010; 94640; 94760; 96361; 96375; 96376; 99285-25; C9803; J0131; J0330; J0694; J1100; J1170; J1200; J1644; J1720; J1885; J2250; J2270; J2405; J2550; J2704; J2765; J3010; J3480; J7030; J7060; J7121; Q0163; Q9967; U0003

== ENCOUNTER 2021-09-30 12:35 | Emergency (ER) | payer MEDICARE ==
[~2021-09-30] VITALS: Ht 165.1 cm; Wt 103.4 kg
[~2021-09-30 12:35] MED LIST changes: +ACETAMINOPHEN500 MG PO; +NUCALA100 MG/11 SUB-Q
--- OUTSIDE RECORDS SUMMARY | 2021-09-30 12:42 | XMS ---
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 Care History Medical/Surgical 08/25/2020 [facility] - PATIENT DOES HAVE A PCP- DR HOPSON AT [facility]-RECENTLY ESTABLISHED CARE WITH PROVIDER. - [facility]W WILL UPDATE [facility] WITH PROVIDER AND MAKE SURE ED VISIT CHART NOTES ARE PROVIDED TO PCP OFFICE. E.D. VISIT COUNT (12 MO.) 2 [facility] TOTAL 2 NOTE: Visits indicate total known visits. ED/UCC VISIT TRACKING (12 MO.) 09/30/2021 12:35 [facility] [place] TYPE: Emergency COMPLAINT: - SHORTNESS OF BREATH 12/04/2020 15:54 [facility] [place] TYPE: Emergency COMPLAINT: - ABD PAIN INPATIENT VISIT TRACKING (12 MO.) 12/04/2020 22:[address] [facility] [place] TYPE: Medical Surgical COMPLAINT: - SMALL BOWEL OBSTRUCTION DIAGNOSES: - Hypokalemia - Sleep apnea, unspecified - Unspecified asthma with (acute) exacerbation - Other snf (current) drug therapy - Personal history of transient ischemic attack (TIA), and cerebral infarction without residual deficits - Sleep apnea, unspecified - Ileus, unspecified - Body mass index [BMI] 38.0-38.9, adult - Ileus, unspecified - termination clerk (current) use of antithrombotics/antiplatelets - Body mass index [BMI] 38.0-38.9, adult - Essential (primary) hypertension - Major depressive disorder, single episode, unspecified - Major depressive disorder, single episode, unspecified - Intestinal adhesions [bands], unspecified as to partial versus complete obstruction - Essential (primary) hypertension - Other snf (current) drug therapy - custodial (current) use of inhaled steroids - Morbid (severe) obesity due to excess calories - Unspecified intestinal obstruction, unspecified as to partial versus complete obstruction - Hypokalemia - Intestinal adhesions [bands], unspecified as to partial versus complete obstruction - Morbid (severe) obesity due to excess calories - termination clerk (current) use of antithrombotics/antiplatelets - termination clerk (current) use of inhaled steroids - Personal history of transient ischemic attack (TIA), and cerebral infarction without residual deficits - Unspecified asthma with (acute) exacerbation [email or web address]
[2021-09-30] MEDS ORDERED: [UNRECOGNIZED DRUG - REMARK] (13:01)
[2021-09-30] MEDS ORDERED: ZITHROMAX250 MG PO (14:53)
[2021-09-30] MEDS ORDERED: BENZONATATE100 MG PO (14:53)
[2021-09-30] MEDS ORDERED: PREDNISONE20 MG PO (14:53)
== END 2021-09-30 15:11 | disposition home or self-care (01) ==
LOC: ED 12:35
DX: J40 Bronchitis, not specified as acute or chronic (principal); I10 Essential (primary) hypertension; J45.909 Unspecified asthma, uncomplicated; Z86.16 Personal history of COVID-19; Z87.891 Personal history of nicotine dependence; Z79.899 Other long term (current) drug therapy
CPT/HCPCS: 71045; 94640; 99284-25; J1100

== ENCOUNTER 2021-10-08 13:30 | Emergency (ER) | payer MEDICARE ==
[~2021-10-08] VITALS: Ht 165.1 cm; Wt 103.4 kg
[~2021-10-08 13:30] MED LIST changes: +BENZONATATE100 MG PO; +[UNRECOGNIZED DRUG - REMARK]
--- OUTSIDE RECORDS SUMMARY | 2021-10-08 13:38 | XMS ---
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 Care History Medical/Surgical 08/25/2020 [facility] - PATIENT DOES HAVE A PCP- DR HOPSON AT [facility]-RECENTLY ESTABLISHED CARE WITH PROVIDER. - CHW WILL UPDATE [facility] WITH PROVIDER AND MAKE SURE ED VISIT CHART NOTES ARE PROVIDED TO PCP OFFICE. E.D. VISIT COUNT (12 MO.) 3 [facility] TOTAL 3 NOTE: Visits indicate total known visits. ED/UCC VISIT TRACKING (12 MO.) 10/08/2021 13:31 [facility] [place] TYPE: Emergency COMPLAINT: - FALL, HEAD INJURY 09/30/2021 12:35 [facility] [place] TYPE: Emergency COMPLAINT: - SHORTNESS OF BREATH DIAGNOSES: - Essential (primary) hypertension - Unspecified asthma, uncomplicated - Other lobsterman (current) drug therapy - Bronchitis, not specified as acute or chronic - Wheezing - Personal history of nicotine dependence 12/04/2020 15:54 [facility] [place] TYPE: Emergency COMPLAINT: - ABD PAIN INPATIENT VISIT TRACKING (12 MO.) 12/04/2020 22:12 [facility] [place] TYPE: Medical Surgical COMPLAINT: - SMALL BOWEL OBSTRUCTION DIAGNOSES: - Hypokalemia - Sleep apnea, unspecified - Unspecified asthma with (acute) exacerbation - Other fpc (current) drug therapy - Personal history of [...] obstruction - Essential (primary) hypertension - Other fpc (current) drug therapy - termination clerk (current) use of inhaled steroids - Morbid (severe) obesity due to excess calories - Unspecified intestinal obstruction, unspecified as to partial versus complete obstruction - Hypokalemia - Intestinal adhesions [bands], unspecified as to partial versus complete obstruction - Morbid (severe) obesity due to excess calories - termination clerk (current) use of antithrombotics/antiplatelets - retirement (current) use of inhaled steroids - Personal history of transient ischemic attack (TIA), and cerebral infarction without residual deficits - Unspecified asthma with (acute) exacerbation [email or web address]
[2021-10-08] MEDS ORDERED: EZETIMIBE10 MG PO (14:18)
[2021-10-08] MEDS ORDERED: MAGNESIUM400 M1 PO (15:54)
--- NOTE | 2021-10-08 20:03 | EKG ---
[facility] [address] [facility] [place], [place] [address] Signed Sinus rhythm with 1st degree AV block Otherwise normal ECG When compared with ECG of 04-DEC-2020 16:14, No significant change was found Confirmed by HECTOR WEISS DO ([id number]) on 10/08/2021 8:03:35 PM Electronically Signed By: HECTOR WEISS DO 10/08/212002 PATIENT NAME: CASPER GEORGE Electrocardiogram DATE OF : 42 PHYSICIAN: HECTOR WEISS DO REPORT #: [id number] REPORT IS CONFIDENTIAL AND NOT TO BE RELEASED WITHOUT AUTHORIZATION
== END 2021-10-08 17:11 | disposition home or self-care (01) ==
LOC: ED 13:30
DX: S09.90XA Unspecified injury of head, initial encounter (principal); W07.XXXA Fall from chair, initial encounter; J45.909 Unspecified asthma, uncomplicated; I10 Essential (primary) hypertension; Z86.16 Personal history of COVID-19; Z87.891 Personal history of nicotine dependence; Z79.899 Other long term (current) drug therapy
CPT/HCPCS: 70450; 72125; 80053; 83735; 85025; 93005; 93010; 99284-25

== ENCOUNTER 2022-10-07 15:01 | Emergency (ER) | payer MEDICARE ==
[~2022-10-07] VITALS: Ht 165.1 cm; Wt 102.1 kg
[~2022-10-07 15:01] MED LIST changes: +EZETIMIBE10 MG PO; +MAGNESIUM400 M1 PO; +OXYBUTYNIN CHLOR5 M1 PO
--- OUTSIDE RECORDS SUMMARY | 2022-10-07 17:03 | XMS ---
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 Care History Medical/Surgical 10/09/2021 [facility] - Patient is currently established with [facility]. If patient is seen in the ED during business hours. Please contact CHWs at [facility]. Care Recommendation: If this patient has had 5 or more Emergency Department visits in the last 12 months.\T\nbsp; Patient will require education on the scope and purpose of the ED as an acute care provider not a Primary Care Provider and should not be utilized for chronic conditions.\T\nbsp; These are guidelines and the provider should exercise clinical judgment when providing care. 10/09/2021 [facility] Patient has follow up with eye doctor on 10/11/2021 and follow up visit with DR. Madera on 10/11/2021. E.D. VISIT COUNT (12 MO.) [address] [facility] TOTAL 3 NOTE: Visits indicate total known visits. 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 INPATIENT VISIT TRACKING (12 MO.) 11/25/2021 13:54 [facility] [place] TYPE: Observation COMPLAINT: - RSV,ASTHMA ACUTE EXACERBATION DIAGNOSES: - Acute bronchitis due to respiratory syncytial virus - Contact with and (suspected) exposure to COVID-19 - Personal history of nicotine dependence - Unspecified asthma with (acute) exacerbation - Essential (primary) hypertension - Personal history of transient ischemic attack (TIA), and cerebral infarction without residual deficits - Paroxysmal atrial fibrillation - Personal history of COVID-19 - longterm (current) use of anticoagulants [email or web address]
== END 2022-10-07 18:06 | disposition home or self-care (01) ==
LOC: ED 15:01
DX: H60.92 Unspecified otitis externa, left ear (principal); I50.9 Heart failure, unspecified; J45.909 Unspecified asthma, uncomplicated; Z86.73 Personal history of transient ischemic attack (TIA), and cerebral infarction without residual deficits; Z86.16 Personal history of COVID-19; Z87.891 Personal history of nicotine dependence; Z79.899 Other long term (current) drug therapy; Z79.02 Long term (current) use of antithrombotics/antiplatelets
CPT/HCPCS: 99282

== ENCOUNTER 2023-02-25 08:00 | Day surgery (SDC) | payer MEDICARE ==
[2023-02-20 10:38] VITALS: BP 144/77
[~2023-02-25] VITALS: Ht 165.1 cm; Wt 102.0 kg
--- NOTE | ~2023-02-25 | OR ---
[facility] [address] [place], [place] [address] Draft DATE OF OPERATION: 02/25/2023 SURGEON: Mike Mayes MD PREOPERATIVE DIAGNOSIS: Left ear conductive hearing loss, serous otitis media. POSTOPERATIVE DIAGNOSIS: Left ear conductive hearing loss, serous otitis media. PROCEDURE: Left myringotomy and ventilation tube insertion. ANESTHESIA: General, LMA, COMPUTER NUMERICAL CONTROL PROGRAMMER, Curtis. PREOPERATIVE HISTORY: Casper is an 82-year-old lady with hearing loss in the left ear. This has been confirmed to be serous otitis media, flat tympanogram, dull retracted eardrum, unresponsive to appropriate medications and she is taken to the operating room for the above-mentioned procedures. OPERATIVE PROCEDURE AND FINDINGS: After informed consent, the patient was taken to the operating room, placed in the supine position where general LMA anesthesia was induced. The patient and procedure were verified. The patient was repositioned. Left ear was examined with the operating microscope. The eardrum was retracted, dull. Anterior-inferior radial myringotomy was made. A serous effusion suctioned from the middle ear space. A Hall tube placed in myringotomy site. Cipro ophthalmic drops applied to the ear canal cotton ball the meatus. The patient tolerated the procedure well, was awakened, extubated, transported to recovery room in good condition. No complications. BLOOD LOSS: Minimal. SPECIMEN: No specimen. DRAINS: No drains. PATIENT NAME: CASPER GEORGE OPERATIVE REPORT DATE OF : 42 REPORT #: [id number] PHYSICIAN: MIKE MAYES MD PCP: JOSE GORDON REPORT IS CONFIDENTIAL AND NOT TO BE RELEASED WITHOUT AUTHORIZATION [address] [place], [place] [address] Draft Mike Mayes MD /NICO /[id number] Copies: ~ PATIENT NAME: CASPER GEORGE OPERATIVE REPORT DATE OF : 42 REPORT #: [id number] PHYSICIAN: MIKE MAYES MD PCP: JOSE GORDON REPORT IS CONFIDENTIAL AND NOT TO BE RELEASED WITHOUT AUTHORIZATION
[~2023-02-25 08:00] MED LIST changes: +B-100 COMPLEX1 EAC1 PO; +POTASSIUM99 M3 PO; +VITAMIN B COMP1 EACH PO; +VITAMIN D310 MC4 PO
[2023-02-25] MEDS ORDERED: BUSPIRONE HCL10 MG PO (08:45)
[2023-02-25 08:59] VITALS: BP 153/68
--- NOTE | 2023-02-25 12:01 | NUR ---
02/25/23 12[address] 1154 PATIENT ARRIVES TO PACU SLEEPING. AWAKENS WITH VERBAL STIMULI, FOLLOWS COMMANDS TO COUGH AND DEEP BREATHE. MASK AT 6 LITERS, TURNED OFF. 1201 PATIENT SLEEPING. AWAKENS WITH VERBAL STIMULI. RESP EVEN AND UNLABORED, CO2 MONITOR ON.
[2023-02-25 12:25] VITALS: BP 125/56
--- NOTE | 2023-02-25 12:26 | NUR ---
PT TO DS ROOM ALERT AND AWAKE DENIES PAIN AND NAUSEA. PT EATING CRACKERS AND DRINKING COFFEE TOLERATES WELL. WARM BLANKETS PLACED ON PT. CALL LIGHT WITHIN REACH.
[2023-02-25 13:13] VITALS: BP 152/55
--- NOTE | 2023-02-25 13:18 | NUR ---
PT ALERT AND AWAKE DENIES PAIN AND NAUSEA. DAUGHTER AT BEDSIDE DISCHARGE INSTRUCTIONS GIVEN TO PT AND DAUGHTER BOTH VOICED UNDERSTANDING.
== END 2023-02-25 13:25 | disposition home or self-care (01) ==
LOC: OPS 08:00 → DS 08:00 → DSVR 08:00 → OPS 09:03 → DS 10:30 → OPS 10:30
PROVIDERS: ATTEND Otolaryngology
DX: H65.92 Unspecified nonsuppurative otitis media, left ear (principal); H90.2 Conductive hearing loss, unspecified; J45.909 Unspecified asthma, uncomplicated; I10 Essential (primary) hypertension; Z79.899 Other long term (current) drug therapy
CPT/HCPCS: 00126; J1100; J1885; J2405; J2704; J7121

== ENCOUNTER 2023-04-02 09:14 | Inpatient (IN) | payer MEDICARE ==
[~2023-04-02] VITALS: Ht 165.1 cm; Wt 103.0 kg
[~2023-04-02 09:14] MED LIST changes: +BUSPIRONE HCL10 MG PO
[2023-04-02 17:08] VITALS: BP 135/55
--- NOTE | 2023-04-02 19:13 | NUR ---
REPORT RECEIVED FROM YUMIKO BARRON. PT LAYING IN BED AND RESPONDS WHEN ADDRESSED. PT DENIES ANY NEEDS AT THIS TIME. CALL LIGHT IN REACH.
--- NOTE | 2023-04-02 20:03 | NUR ---
IN TO ANSWER CALL LIGHT. PT REQUESTING TOILETING. SBA FROM BED TO BSC. PT REQUESTING SOME TIME ALONE. PROVIDED PT CALL LIGHT AND TOLD PT TO CALL WHEN READY. PT VERBALIZES UNDERSTANDING. PT DENIES ANY OTHER NEEDS AT THIS TIME. CALL LIGHT IN REACH.
--- NOTE | 2023-04-02 20:08 | NUR ---
IN TO ANSWER CALL LIGHT. PT FINISHED WITH VOID. VOID NOTED. SBA FROM BSC BACK TO BED. PT DENIES ANY OTHER NEEDS AT THIS TIME. CALL LIGHT IN REACH.
[2023-04-02 20:46] VITALS: BP 118/58
--- NOTE | 2023-04-02 20:52 | EKG ---
[facility] [address] [place] [address] Signed Sinus rhythm with 1st degree AV block Moderate voltage criteria for LVH, may be normal variant ( R in aVL , Eastman product ) Inferior infarct , age undetermined Abnormal ECG When compared with ECG of 20-FEB-2023 09:55, Inferior infarct is now present Confirmed by DESTINY DAWSON MD ([id number]) on 04/02/2023 8:52:15 PM Electronically Signed By: DESTINY DAWSON MD 04/02/232051 PATIENT NAME: CASPER GEORGE Electrocardiogram DATE OF : 42 PHYSICIAN: DESTINY DAWSON MD REPORT #: [id number] REPORT IS CONFIDENTIAL AND NOT TO BE RELEASED WITHOUT AUTHORIZATION
--- NOTE | 2023-04-02 20:54 | NUR ---
IN TO ADMINISTER MEDICATIONS, SEE MAR. PT REQUESTING PRN SLEEP MEDICATION, SEE MAR. MEDICATIONS ADMINISTERED. PT TAKES PO MEDICATIONS WITH NO ISSUES. VITALS AND I&Os COMPLETE. ASSESSMENT COMPLETE. PT DENIES PAIN AT THIS TIME. LUNG SOUNDS CLEAR IN RUL, FABI AND LLL. CRACKELS IN RLL. BOWEL TONES ACTIVE. WATER PROVIDED. PT DENIES ANY OTHER NEEDS AT THIS TIME. CALL LIGHT IN REACH.
--- NOTE | 2023-04-02 23:15 | NUR ---
IN TO ANSWER CALL LIGHT. CPAP ALARMING, RESOLVED. PT DENIES ANY OTHER NEEDS AT THIS TIME. PT RESTING IN BED ON LEFT SIDE. RR EVEN AND UNLABORED. CALL LIGHT IN REACH.
[2023-04-03 01:47] VITALS: BP 137/56
--- NOTE | 2023-04-03 01:56 | NUR ---
IN TO ANSWER CALL LIGHT. PT REQUESTING TOILETING. SBA FROM BED TO RESTROOM AND BACK TO BED. BM AND VOID NOTED. VITALS AND I&Os COMPLETE. ASSESSMENT COMPLETE. LUNG SOUNDS CLEAR IN RUL, FABI AND LLL. DIMINISHED IN RLL. BOWEL TONES ACTIVE. PT DENIES PAIN AT THIS TIME. CALL LIGHT IN REACH.
[2023-04-03 05:14] VITALS: BP 131/60
--- NOTE | 2023-04-03 05:15 | NUR ---
IN TO ROUND ON PT. PT LAYING IN BED RR EVEN AND UNLABORED. MARI COWAN IN ROOM OBTAINING VITALS. PT DENIES TOILETING OR ANY OTHER NEEDS AT THIS TIME. CALL LIGHT IN REACH.
--- NOTE | 2023-04-03 07:30 | NUR ---
Report received from Mindy CALDERON. Pt resting in bed with eyes closed. CPAP in place. No needs identified at this time, call light in reach
[2023-04-03] MEDS ORDERED: LEVALBUTEROL TA15 GM (07:33)
[2023-04-03] MEDS ORDERED: EZETIMIBE10 MG PO (08:29)
--- NOTE | 2023-04-03 08:32 | NUR ---
Med rec completed.
--- NOTE | 2023-04-03 08:55 | NUR ---
Scheduled medications administered, assessment complete. Pt resting in bed, on RA, states no SOB, no pain or needs. Lungs clear, dim. HRR. Occasional cough noted. Pt ambulates to BR to wash face. No needs from this RN. Call light in reach.
[2023-04-03 09:22] VITALS: BP 125/51
--- NOTE | 2023-04-03 11:30 | NUR ---
Spoke with Jaqueline. She cont. to live in a moduler home at [facility]. She uses a CPAP and a nebulizer. She was providing care for her disabled daughter, but states she could not longer do so. Daughter now lives in [place] with a CG near her sister Yasmin. Yasmin also assists Jaqueline, her mom as needed. Jaqueline denies any needs. We again discussed my concern, she drives herself to the hospital when she has asthma attacks. Pt again stating she lives close and will cont. to do so. Pt states she uses the [facility] in [place]. We spoke about [employer] and she states she has their number. She had services for her daughter. She does not feel she needs them at this time. Pt plans on dc to home when discharged. She does state she has meds for her nebulizer as she had them filled yesterday.
--- NOTE | 2023-04-03 12:35 | NUR ---
Pt up for lunch, states feeling well at this time with no needs
[2023-04-03 13:24] VITALS: BP 121/52
--- NOTE | 2023-04-03 13:29 | NUR ---
PT ALERT, RESTING IN BED. PT ON RM O2, SAID SHE IF FEELING A BIT BETTER TODAY. PT REQUESTED A VISIT FROM [facility] TODAY-WILL ARRANGE. PT ALSO REQUESTED PRAYER WILL FOLLOW
--- NOTE | 2023-04-03 14:46 | NUR ---
Assessment complete. Pt remains on RA. States SOB with walking, sometimes after talking. SPO2 WNL. No needs at this time.
--- NOTE | 2023-04-03 15:37 | NUR ---
PT NOW HAS HER HOME CPAP AT THE BEDSIDE. MACHINE IS CLEAN AND IN GOOD WORKING ORDER. PT USES A FULL FACE MASK AND ALSO USES THE HUMIDIFIER. SET UP FOR PT
[2023-04-03 17:54] VITALS: BP 133/52
--- NOTE | 2023-04-03 18:18 | NUR ---
Rounded on patient who is resting in bed, she states has SOB with exertion but otherwise "feeling fine, bored". No signs of resp distress. On room air. Pt has no pain or needs. Call light in reach.
--- NOTE | 2023-04-03 19:20 | NUR ---
REPORT RECEIVED FROM YUMIKO NIETO. PT LAYING IN BED AND RESPONDS WHEN ADDRESSED. PT DENIES ANY NEEDS AT THIS TIME. CALL LIGHT IN REACH.
[2023-04-03 21:26] VITALS: BP 149/74
--- NOTE | 2023-04-03 21:31 | NUR ---
IN TO ADMINISTER MEDICATION. PT SITTING UP IN BED AND RESPONDS WHEN ADDRESSED. PT TAKES PO MEDICATION WITH NO ISSUES. VITALS AND I&Os COMPLETE. ASSESSMENT COMPLETE. LUNG SOUNDS CLEAR IN RUL AND FABI. DIMINISHED IN RLL AND LLL. BOWEL TONES ACTIVE. PT DENIES PAIN AT THIS TIME. WATER PROVIDED. PT DENIES ANY OTHER NEEDS AT THIS TIME. CALL LIGHT IN REACH.
[2023-04-04 05:18] VITALS: BP 125/96
--- NOTE | 2023-04-04 05:22 | NUR ---
IN TO ROUND ON PT. LAB IN ROOM. PT RESPONDS WHEN ADDRESSED. VITALS AND I&Os COMPLETE. PT DENIES PAIN AT THIS TIME. ASSESSMENT COMPLETE. LUNG SOUNDS CLEAR IN RUL AND FABI. DIMINISHED IN RLL AND LLL. BOWEL TONES ACTIVE. PT AMBULATES TO RESTROOM AND BACK TO BED WITH STEADY GAIT. O2 SATS AFTER AMBULATION 90% ON RA AND INCRESES BACK TO 93% ON RA WHILE RESTING ON EDGE OF BED. PT BACK IN BED. PT DENIES ANY OTHER NEEDS AT THIS TIME. CALL LIGHT IN REACH.
[2023-04-04 09:20] VITALS: BP 139/85
--- NOTE | 2023-04-04 09:30 | NUR ---
Spoke with Jaqueline. She has worked with PT and remains sob. She states its difficult to catch her breath. Leann from PT feels pt would benefit from 5 days of cont. PT. Dr. Murphy updated. She will admit pt in IP and reevaluate on Friday. Please see PT note.
--- NOTE | 2023-04-04 11:30 | NUR ---
Patient awake sitting up in chair, alert and oriented x4. Patient ambulated in hallway with PT, tolerated fair. Patient reports she gets short of breath with long walks. Patient is 97% on room air at this time, respirations non labored at this time. Call light within reach.
[2023-04-04 13:08] VITALS: BP 148/57
[2023-04-04 17:26] VITALS: BP 154/67
--- NOTE | 2023-04-04 17:34 | NUR ---
Patient awake sitting up in bed watching tv, a&ox4. Patient denies pain at this time. Patient on room air, respirations even and non labored. Bathroom cleaned up. Fresh water provided. Call light within reach.
--- NOTE | 2023-04-04 19:38 | NUR ---
REPORT RECEIVED FROM DAY SHIFT RN. PT RESTING IN BED. SAFETY PRECAUTIONS MAINTAINED. CALL LIGHT WITHIN REACH. WILL CONTINUE TO MONITOR.
--- NOTE | 2023-04-04 20:25 | NUR ---
PT ASSESSED AND MEDICATIONS GIVEN. VSS. SAFETY PRECAUTIONS MAINTAINED. CALL LIGHT WITHIN REACH. WILL CONTINUE TO MONITOR.
[2023-04-04 20:27] VITALS: BP 160/62
[2023-04-05 06:08] VITALS: BP 151/60
--- NOTE | 2023-04-05 06:18 | NUR ---
PT RESTED WELL THROUGHOUT THE SHIFT. CPAP WARN. PT SATING WELL. VSS. PT VOICED NO COMPLAINTS OR CONCERNS. SAFETY PRECAUTIONS MAINTAINED. CALL LIGHT WITHIN REACH. WILL CONTINUE TO MONITOR.
--- NOTE | 2023-04-05 07:29 | NUR ---
PATIENT AWAKE IN BED, ALERT AND ORIENTED X4. PATIENT REQUESTING A BREATHING TREATMENT AT THIS TIME FOR REPORTED SHORTNESS OF BREATH. RT CALLED AT THIS TIME. SP02 97% ON ROOM AIR.
--- NOTE | 2023-04-05 07:31 | NUR ---
RT HERE TO SEE PATIENT.
[2023-04-05 09:27] VITALS: BP 143/69
--- NOTE | 2023-04-05 11:38 | NUR ---
PATIENT AMBULATED IN HALLWAY SBA WITH NURSES SUPERINTENDENT. PATIENT TOLERATED AMBULATION FAIR, PT REQUIRES FREQUENT BREAKS SHE REPORTS INCREASED SOB WITH EXERTION. PATIENT BACK TO BED POST WALK.
[2023-04-05 13:33] VITALS: BP 134/54
[2023-04-05 17:34] VITALS: BP 152/62
--- NOTE | 2023-04-05 19:28 | NUR ---
REPORT RECIEVED FROM DAY SHIFT RN. PT RESTING IN BED. SAFETY PRECAUTIONS MAINTAINED. CALL LIGHT WITHIN REACH. WILL CONTINUE TO MONITOR.
[2023-04-05 20:03] VITALS: BP 133/58
--- NOTE | 2023-04-05 20:10 | NUR ---
PT ASSESSED AND MEDICATIONS GIVEN. PT ON RA, CPAP WHEN SLEEPING. PT ABLE TO AMBULATE TO THE BATHROOM. VSS. IV SITE INTACT. SAFETY PRECAUTIONS MAINTAINED. CALL LIGHT WITHIN REACH. WILL CONTINUE TO MONITOR.
[2023-04-06 05:38] VITALS: BP 139/59
--- NOTE | 2023-04-06 06:18 | NUR ---
PT RESTED WELL DURING THE SHIFT. PT WORE CPAP THROUGHOUT SHIFT. VSS. SAFETY PRECAUTIONS MAINTAINED. CALL LIGHT WITHIN REACH. WILL CONTINUE TO MONITOR.
--- NOTE | 2023-04-06 07:43 | NUR ---
PT AWAKE AND RESTING IN BED AT TIME OF SHIFT REPORT. DENIES DISCOMFORTS OR NEEDS OF. FRESH H20 AND NEEDED ITEMS AT BEDSIDE.
[2023-04-06 09:54] VITALS: BP 121/62
--- NOTE | 2023-04-06 10:17 | NUR ---
TECHNICAL SUPPORT PROFESSIONAL REPORTED THAT WHILE WALKING ON THE FLOOR, PT BECAME DIZZY AND LIGHTHEADED. TECHNICAL SUPPORT PROFESSIONAL STOPPED THE WALK AND WHEELED PT BACK TO HER ROOM. NURSE ADVISED.
--- NOTE | 2023-04-06 10:22 | NUR ---
PT RESTING IN BED AFTER HAVING A WALKE WITH STAFF. REPORTS SHE BECAME LIGHT HEADED, HAS SINCE RECOVERED NO FURTHER ISSUES. PT REPORTS SHE WANTS TO WALK AGAIN AROUND 1100. WATCHING TV NOW BREATHING EVEN AND UNLABORED ON ROOM AIR.
--- NOTE | 2023-04-06 10:44 | NUR ---
PATIENT TRIED WALKING A SMALL LAP AROUND THE NURSES STATION, I HAD TO GET A CHAIR TO PUSH HER BACK TO HER ROOM. SHE GOT DIZZY AND SAID SHE ALWAYS GET PRESSSURE IN HER CHEST WHEN WALKING. NOTIFIED CHARGE NURSE.
--- NOTE | 2023-04-06 12:58 | NUR ---
PT WORKS WITH P/T WELL TOLERATED THEN RETURNS TO HER ROOM FOR NOON MEAL. STATES SHE WANTS TO WALK AGAIN LATER.
[2023-04-06 13:49] VITALS: BP 132/60
--- NOTE | 2023-04-06 14:39 | NUR ---
pt sitting up in bed talking on the phone denies needs of
[2023-04-06 17:47] VITALS: BP 145/73
--- NOTE | 2023-04-06 19:26 | NUR ---
Noticed Pt's EKG lead sticker was disconnected. Replaced EKG sticker with RN assistance. Emptied Pt's urine hat. Noted Pt's output on board. Call light left in reach. No other needs expressed by Pt.
--- NOTE | 2023-04-06 19:31 | NUR ---
REPORT RECEIVED FROM DAY SHIFT RN. PT RESTING IN BED. NO DISTRESS NOTED. PT DENIED ANY COMPLAINTS OR CONCERNS. SAFETY PRECAUTIONS MAINTAINED. CALL LIGHT WITHIN REACH. WILL CONTINUE TO MONITOR.
[2023-04-06 20:05] VITALS: BP 125/68
--- NOTE | 2023-04-06 20:11 | NUR ---
PT ASSESSED AND MEDICATIONS GIVEN. VSS. I/O RECORDED. SAFETY PRECAUTIONS MAITAINED. CALL LIGHT WITHIN REACH. WILL CONTINUE TO MONITOR.
[2023-04-07 05:30] VITALS: BP 129/61
--- NOTE | 2023-04-07 05:57 | NUR ---
PT RESTED WELL DURING THE SHIFT. TYLENOL GIVEN ONCE FOR LEG PAIN. VSS. TELE READING NSR. SAFETY PRECAUTIONS MAINTAINED. CALL LIGHT WITHIN REACH. WILL CONTINUE TO MONITOR.
--- NOTE | 2023-04-07 07:13 | NUR ---
PT RESTING IN BED AWAKE AT TIME OF SHIFT REPORT. BREATHING EVEN AND UNLABORED ON RA. PT DENIES NEEDS AT THIS TIME
--- NOTE | 2023-04-07 08:26 | NUR ---
PT TOLERATES ALL OF MORNING MEAL. REFUSES P/T UNTIL AFTER MORNING RESP MEDS. R/T IN WITH HER AT THIS TIME.
--- NOTE | 2023-04-07 08:51 | NUR ---
PT AGREES HER HEADACHE HAS RESOLVED. UP WORKING WITH P/T AT THIS TIME ANTICPATES GOING HOME TODAY.
[2023-04-07] MEDS ORDERED: BUDESONIDE0.5 MG/2 M INH (09:05)
[2023-04-07 09:19] VITALS: BP 110/56
--- NOTE | 2023-04-07 10:13 | NUR ---
PT WORKS WITH P/T WELL TOLERATED. OFFERED SHOWER PT REFUSES STATES SHE WILL SHOWER AT HOME. DR DAWSON IN TO SEE HER DC INSTRUCTIONS DISCUSSED PT VERBALIZES UNDERSTANDING ALL QUESTIONS ANSWERED. WAITING FOR DAUGHTER FROM [place] FOR DC
--- NOTE | 2023-04-07 10:30 | NUR ---
In room and listened while Dr. Murphy spoke with pt about dc. Pt family are in [place] and on their way home. They will pick Jaqueline up and take her home with them when they get to [facility]. would like Jaqueline to work with PT today before you goes home. IM letter given. It is unclear when pt will dc, but she does not want to wait to consider dc appeal and wants to leave as soon as she can. She denies any needs and states he family will care for her at home.
--- NOTE | 2023-04-07 11:03 | NUR ---
PT RESTING IN BED WATCHING TV DENIES NEED OF ANYTHING
[2023-04-07 13:11] VITALS: BP 142/60
--- NOTE | 2023-04-07 13:12 | NUR ---
PT ALERT, ORIENTED AND RESTING IN BED. PT SEEMS THANKFUL I STOPPED BY. PLANS TO DC LATER TODAY, WAITING ON DAUGHTER FROM [place] TO ARRIVE. PT REQUESTED [facility] VISIT TODAY. INFORMED HIM, HAD PRAYER. GAVE BLESSING
== END 2023-04-07 13:55 | disposition home or self-care (01) | DRG 203 ==
LOC: ED 09:14 → MS 09:16
PROVIDERS: ADMIT Internal Medicine; ATTEND Internal Medicine
DX: J45.901 Unspecified asthma with (acute) exacerbation (principal); I48.0 Paroxysmal atrial fibrillation; F41.9 Anxiety disorder, unspecified; F32.A Depression, unspecified; I11.0 Hypertensive heart disease with heart failure; I50.9 Heart failure, unspecified; G25.81 Restless legs syndrome; Z86.73 Personal history of transient ischemic attack (TIA), and cerebral infarction without residual deficits; Z86.16 Personal history of COVID-19; Z87.891 Personal history of nicotine dependence; Z90.49 Acquired absence of other specified parts of digestive tract; Z98.890 Other specified postprocedural states; Z90.710 Acquired absence of both cervix and uterus; Z79.899 Other long term (current) drug therapy
CPT/HCPCS: 36415; 71045; 80048; 80053; 83735; 83880; 84484; 85025; 85379; 93005; 93010; 94640; 94660; 94760; 94762; 94799; 97112; 97116; 97162; 97530; A9270; J2930

== ENCOUNTER 2023-06-04 15:55 | Inpatient (IN) | payer MEDICARE ==
[~2023-06-04] VITALS: Ht 165.1 cm; Wt 102.3 kg
--- OUTSIDE RECORDS SUMMARY | ~2023-06-04 | XMS | Continuity of Care Document ---
Demographics + + + | Address | [address] [address] | | | [place] [address] | + + + | Preferred Language | Unknown | + + + | Marital Status | | + + + | Presybeterian Affiliation | Unknown | + + + | Race | White | + + + | Ethnic Group | Not or | + + + Author + + + | Author | [place] | + + + | Organization | [place] | + + + | Address | [address] | | | [place] [address] | + + + | Phone | | + + + Care Team Providers + + + + | Care Filler Machine Operator Name | Role | Phone | + + + + Unavailable | Unavailable | + + + + Unavailable | Unavailable | + + + + Unavailable | Unavailable | + + + + Unavailable | Unavailable | + + + + Unavailable | Unavailable | + + + + Allergies and Intolerances + + + + + + | date | description | facility | reaction | severity | + + + + + + | (no date) | Celecoxib | [facility] | (no reaction) | (no severity) | | [facility] | | | + + + + + + | (no date) | Celecoxib | [facility] | (no reaction) | (no severity) | | | [facility] | | | + + + + + + | (no date) | No Known | [facility] | (no reaction) | (no severity) | | | Allergies | | | | + + + + + + | (no date) | adhesive tape | [facility] | (no reaction) | (no severity) | + + + + + + | (no date) | celecoxib | [facility] | (no reaction) | (no severity) | + + + + + + | (no date) | Celecoxib | [facility] | (no reaction) | (no severity) | | | [facility] | | | + + + + + + Encounters No information. Functional Status No information. Immunizations No information. Medications + + + + | date | description | facility | + + + + | 2023-02-25 00:00 | FORMOTEROL FUMARATE | [facility] | + + + + | 2023-04-07 00:00 | FORMOTEROL FUMARATE | [facility] | + + + + | 2023-05-25 00:00 | FORMOTEROL FUMARATE | [facility] | + + + + | 2022-10-07 00:00 | LACTOBACILLUS ACIDOPHILUS | [facility] | + + + + | 2023-02-25 00:00 | LACTOBACILLUS ACIDOPHILUS | [facility] | + + + + | 2023-04-07 00:00 | LACTOBACILLUS ACIDOPHILUS | [facility] | + + + + | 2023-05-25 00:00 | LACTOBACILLUS ACIDOPHILUS | [facility] | + + + + | 2023-02-25 00:00 | IPRATROPIUM/ALBUTEROL | [facility] | | | SULFATE | | + + + + | 2023-04-07 00:00 | IPRATROPIUM/ALBUTEROL | [facility] | | | SULFATE | | + + + + | 2023-05-25 00:00 | IPRATROPIUM/ALBUTEROL | [facility] | | | SULFATE | | + + + + | 2021-09-30 00:00 | BENZONATATE | [facility] | + + + + | 2021-09-30 00:00 | BENZONATATE | [facility] | + + + + | 2021-09-30 00:00 | BENZONATATE | [facility] | + + + + | 2022-10-07 00:00 | MAGNESIUM OXIDE | [facility] | + + + + | 2023-02-25 00:00 | MAGNESIUM OXIDE | [facility] | + + + + | 2023-04-07 00:00 | MAGNESIUM OXIDE | [facility] | + + + + | 2023-05-25 00:00 | MAGNESIUM OXIDE | [facility] | + + + + | 2022-10-07 00:00 | Ascorbic Acid | [facility] | + + + + | 2023-02-25 00:00 | Ascorbic Acid | [facility] | + + + + | 2023-04-07 00:00 | Ascorbic Acid | [facility] | + + + + | 2023-05-25 00:00 | Ascorbic Acid | [facility] | + + + + | 2022-10-07 00:00 | PAROXETINE HCL | [facility] | + + + + | 2023-02-25 00:00 | PAROXETINE HCL | [facility] | + + + + | 2023-04-07 00:00 | PAROXETINE HCL | [facility] | + + + + | 2023-05-25 00:00 | PAROXETINE HCL | [facility] | + + + + | 2021-09-30 00:00 | AZITHROMYCIN | [facility] | + + + + | 2021-09-30 00:00 | AZITHROMYCIN | [facility] | + + + + | 2021-09-30 00:00 | AZITHROMYCIN | [facility] | + + + + | 2022-10-07 00:00 | Mepolizumab | [facility] | + + + + | 2023-02-25 00:00 | Mepolizumab | [facility] | + + + + | 2023-04-07 00:00 | Mepolizumab | [facility] | + + + + | 2023-05-25 00:00 | Mepolizumab | [facility] | + + + + | 2023-02-25 00:00 | Potassium Citrate | [facility] | + + + + | 2023-04-07 00:00 | Potassium Citrate | [facility] | + + + + | 2023-05-25 00:00 | Potassium Citrate | [facility] | + + + + | 2022-10-07 00:00 | CLOPIDOGREL BISULFATE | [facility] | + + + + | 2023-02-25 00:00 | CLOPIDOGREL BISULFATE | [facility] | + + + + | 2023-04-07 00:00 | CLOPIDOGREL BISULFATE | [facility] | + + + + | 2023-05-25 00:00 | CLOPIDOGREL BISULFATE | [facility] | + + + + | 2021-09-30 00:00 | predniSONE | [facility] | + + + + | 2021-09-30 00:00 | predniSONE | [facility] | + + + + | 2021-09-30 00:00 | predniSONE | [facility] | + + + + | 2022-10-07 00:00 | LISINOPRIL | [facility] | + + + + | 2023-02-25 00:00 | LISINOPRIL | [facility] | + + + + | 2023-04-07 00:00 | LISINOPRIL | [facility] | + + + + | 2023-05-25 00:00 | LISINOPRIL | [facility] | + + + + | 2022-10-07 00:00 | Ezetimibe | [facility] | + + + + | 2023-04-07 00:00 | Ezetimibe | [facility] | + + + + | 2023-05-25 00:00 | Ezetimibe | [facility] | + + + + | 2020-09-07 00:00 | BUDESONIDE | [facility] | + + + + | 2020-09-07 00:00 | BUDESONIDE | [facility] | + + + + | 2020-09-07 00:00 | BUDESONIDE | [facility] | + + + + | 2023-04-07 00:00 | BUDESONIDE | [facility] | + + + + | 2023-02-25 00:00 | Cholecalciferol (Vitamin | [facility] | | | D3) | | + + + + | 2023-04-07 00:00 | Cholecalciferol (Vitamin | [facility] | | | D3) | | + + + + | 2023-05-25 00:00 | Cholecalciferol (Vitamin | [facility] | | | D3) | | + + + + | 2023-05-25 00:00 | AMOXICILLIN/POTASSIUM CLAV | [facility] | | | | | + + + + | 2022-10-07 00:00 | ALBUTEROL SULFATE | [facility] | + + + + | 2023-02-25 00:00 | OXYBUTYNIN CHLORIDE | [facility] | + + + + | 2023-02-25 00:00 | BUSPIRONE HCL | [facility] | + + + + | 2023-05-25 00:00 | BUSPIRONE HCL | [facility] | + + + + Problems + + + + | date | description | facility | + + + + | 2020-07-31 00:00 | Asthma with acute | [facility] | | | exacerbation | | + + + + | 2020-07-31 00:00 | Asthma with acute | [facility] | | | exacerbation | | + + + + | 2020-07-31 00:00 | Asthma with acute | [facility] | | | exacerbation | | + + + + | 2021-10-08 00:00 | Injury of head | [facility] | + + + + | 2021-10-08 00:00 | Injury of head | [facility] | + + + + | 2021-10-08 00:00 | Injury of head | [facility] | + + + + | 2021-10-08 00:00 | Fall | [facility] | + + + + | 2021-10-08 00:00 | Fall | [facility] | + + + + | 2021-10-08 00:00 | Fall | [facility] | + + + + | 2021-11-25 00:00 | Bronchiolitis due to | [facility] | | | respiratory syncytial virus | | | | (RSV) | | + + + + | 2021-11-25 00:00 | Bronchiolitis due to | [facility] | | | respiratory syncytial virus | | | | (RSV) | | + + + + | 2021-11-25 00:00 | Bronchiolitis due to | [facility] | | | respiratory syncytial virus | | | | (RSV) | | + + + + | 2021-11-25 00:00 | Reactive airway disease | [facility] | | | with wheezing | | + + + + | 2021-11-25 00:00 | Reactive airway disease | [facility] | | | with wheezing | | + + + + | 2021-11-25 00:00 | Reactive airway disease | [facility] | | | with wheezing | | + + + + | 2021-11-25 00:00 | Acute respiratory failure | [facility] | | | with hypercapnia | | + + + + | 2021-11-25 00:00 | Acute respiratory failure | [facility] | | | with hypercapnia | | + + + + | 2021-11-25 00:00 | Acute respiratory failure | [facility] | | | with hypercapnia | | + + + + | 2022-10-07 00:00 | Otitis externa of left ear | [facility] | | | | | + + + + | 2022-10-07 00:00 | Otitis externa of left ear | [facility] | | | | | + + + + | 2022-10-07 00:00 | Otitis externa of left ear | [facility] | | | | | + + + + | 2022-10-07 15:02 | UNSPECIFIED OTITIS | [facility] | | | EXTERNA, LEFT EAR | | + + + + | 2022-10-07 15:02 | OTALGIA, LEFT EAR | [facility] | + + + + | 2022-10-07 15:02 | HEART FAILURE, UNSPECIFIED | [facility] | | | | | + + + + | 2022-10-07 15:02 | UNSPECIFIED ASTHMA, | [facility] | | | UNCOMPLICATED | | + + + + | 2022-10-07 15:02 | 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 (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) USE OF | [facility] | | | ANTITHROMBOTICS/ANTIPLA | | + + + + | 2022-10-07 15:02 | OTHER 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 (CURRENT) | [facility] | | | DRUG THERAPY | | + + + + | 2022-10-07 15:02 | PRSNL HX OF TIA (TIA), 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 | | + + + + | 2022-10-07 15:02 | PERSONAL HISTORY OF | [facility] | | | NICOTINE DEPENDENCE | | + + + + | 2022-10-08 10:42 | OTHER SPECIFIED SOFT | [facility] | | | TISSUE DISORDERS | | + + + + | 2022-10-08 10:42 | ENCOUNTER FOR SCREENING | [facility] | | | FOR OSTEOPOROSIS | | + + + + | 2022-10-08 10:42 | ASYMPTOMATIC MENOPAUSAL | [facility] | | | STATE | | + + + + | 2022-10-25 10:45 | SEVERE PERSISTENT ASTHMA | [facility] | | | WITH (ACUTE) EXACERBATION | | + + + + | 2022-11-22 10:33 | SEVERE PERSISTENT ASTHMA | [facility] | | | WITH (ACUTE) EXACERBATION | | + + + + | 2022-12-20 08:53 | SEVERE PERSISTENT ASTHMA | [facility] | | | WITH (ACUTE) EXACERBATION | | + + + + | 2023-01-17 09:07 | SEVERE PERSISTENT ASTHMA | [facility] | | | WITH (ACUTE) EXACERBATION | | + + + + | 2023-02-18 09:49 | SEVERE PERSISTENT ASTHMA | [facility] | | | WITH (ACUTE) EXACERBATION | | + + + + | 2023-02-20 10:02 | OBESITY, UNSPECIFIED | [facility] | + + + + | 2023-02-20 10:02 | CHRONIC SEROUS OTITIS | [facility] | | | MEDIA, LEFT EAR | | + + + + | 2023-02-20 10:02 | ATRIOVENTRICULAR BLOCK, | [facility]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 | | + + + + | 2023-02-20 10:02 | BRADYCARDIA, UNSPECIFIED | [facility] | + + + + | 2023-02-20 10:02 | ENCOUNTER FOR OTHER | [facility] | | | PREPROCEDURAL EXAMINATION | | + + + + | 2023-02-20 10:02 | PRSNL HX OF TIA (TIA), 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 | | + + + + | 2023-02-25 08:00 | CHRONIC SEROUS OTITIS | [facility] | | | MEDIA, LEFT EAR | | + + + + | 2023-02-25 08:00 | UNSPECIFIED NONSUPPURATIVE | [facility] | | | OTITIS MEDIA, LEFT EAR | | + + + + | 2023-02-25 08:00 | CONDUCTIVE HEARING LOSS, | [facility] | | | UNSPECIFIED | | + + + + | 2023-02-25 08:00 | Essential (primary) | [facility] | | | hypertension | | + + + + | 2023-02-25 08:00 | UNSPECIFIED ASTHMA, | [facility] | | | UNCOMPLICATED | | + + + + | 2023-02-25 08:00 | OTHER 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 (CURRENT) | [facility] | | | DRUG THERAPY | | + + + + | 2023-03-28 13:55 | SEVERE PERSISTENT ASTHMA, | [facility] | | | UNCOMPLICATED | | + + + + | 2023-04-02 00:00 | Exacerbation of asthma | [facility] | + + + + | 2023-04-04 12:40 | DEPRESSION, UNSPECIFIED | [facility] | + + + + | 2023-04-04 12:40 | ANXIETY DISORDER, | [facility] | | | UNSPECIFIED | | + + + + | 2023-04-04 12:40 | RESTLESS LEGS SYNDROME | [facility] | + + + + | 2023-04-04 12:40 | HYPERTENSIVE HEART DISEASE | [facility] | | | WITH HEART FAILURE | | + + + + | 2023-04-04 12:40 | PAROXYSMAL ATRIAL | [facility] | | | FIBRILLATION | | + + + + | 2023-04-04 12:40 | HEART FAILURE, UNSPECIFIED | [facility] | | | | | + + + + | 2023-04-04 12:40 | UNSPECIFIED ASTHMA WITH | [facility] | | | (ACUTE) EXACERBATION | | + + + + | 2023-04-04 12:40 | SHORTNESS OF BREATH | [facility] | + + + + | 2023-04-04 12:40 | OTHER USP (CURRENT) | [facility] | | | DRUG THERAPY | | + + + + | 2023-04-04 12:40 | PRSNL HX OF TIA (TIA), 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 | | + + + + | 2023-04-04 12:40 | PERSONAL HISTORY OF | [facility] | | | NICOTINE DEPENDENCE | | + + + + | 2023-04-04 12:40 | ACQUIRED ABSENCE OF OTHER | [facility] | | | SPECIFIED PARTS OF DIGES | | + + + + | 2023-04-04 12:40 | ACQUIRED ABSENCE OF BOTH | [facility] | | | CERVIX AND UTERUS | | + + + + | 2023-04-04 12:40 | OTHER SPECIFIED | [facility] | | | POSTPROCEDURAL STATES | | + + + + | 2023-04-23 09:09 | 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 | | | | | | + + + + | 2023-04-23 09:09 | PAROXYSMAL ATRIAL | [facility] | | | FIBRILLATION | | + + + + | 2023-04-23 09:30 | PAROXYSMAL ATRIAL | [facility] | | | FIBRILLATION | | + + + + | 2023-04-28 09:48 | SEVERE PERSISTENT ASTHMA | [facility] | | | WITH (ACUTE) EXACERBATION | | + + + + | 2023-05-25 00:00 | Diverticulitis | [facility] | + + + + | 2023-05-25 00:00 | Cyst of ovary | [facility] | + + + + | 2023-05-25 07:39 | HEART FAILURE, UNSPECIFIED | [facility] | | | | | + + + + | 2023-05-25 07:39 | UNSPECIFIED ASTHMA, | [facility] | | | UNCOMPLICATED | | + + + + | 2023-05-25 07:39 | 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 Results/Labs +--------+--------+ +---------+--------+---------+ | test | date | facility | value | unit | notes | +--------+--------+ +---------+--------+---------+ + + | Result panel 1 | + + + + + +--------+ + + | | 2023-02-20 | [facility] | 75.9 | (missing) | (missing) | | (unavailable [facility] | | | | + + + +--------+ + + + + | Result panel 2 | + + + + + +--------+ + + | | 2023-02-20 | [facility] | 13.7 | (missing) | (missing) | | (unavailable [facility] | | | | + + + +--------+ + + + + | Result panel 3 | + + + + + +-------+ + + | | 2023-02-20 | [facility] | 7.3 | (missing) | (missing) | | (unavailable | [facility] | | | | + + + +-------+ + + + + | Result panel 4 | + + + + + +-------+ + + | | 2023-02-20 | [facility] | 1.5 | (missing) | (missing) | | (unavailable | [facility]::07 [facility] | | | | + + + +-------+ + + + + | Result panel 5 | + + + + + +-------+ + + | | 2023-02-20 | [facility] | 1.6 | (missing) | (missing) | | (unavailable [facility] | | | | + + + +-------+ + + + + | Result panel 6 | + + + + + +-------+---------+ + | | 2023-02-20 | [facility] | 105 | mg/dL | (missing) | | (unavailable | [facility]07 [facility] | | | | + + + +-------+---------+ + + + | Result panel 7 | + + + + + +------+---------+ + | | 2023-02-20 | [facility] | 18 | mg/dL | (missing) | | (unavailable | [facility] | | | | + + + +------+---------+ + + + | Result panel 8 | + + + + + +--------+---------+ + | | 2023-02-20 | [facility] | 0.75 | mg/dL | (missing) | | (unavailable | [facility] | | | | + + + +--------+---------+ + + + | Result panel 9 | + + + + + +------+ + + | | 2023-02-20 | [facility] | 80 | (missing) | (missing) | | (unavailable | [facility] | | | | + + + +------+ + + + + | Result panel 10 | + + + + + +---------+ + + | | 2023-02-20 | [facility] | 24.00 | (missing) | (missing) | | (unavailable | [facility] | | | | + + + +---------+ + + + + | Result panel 11 | + + + + + +-------+ + + | | 2023-02-20 | [facility] | 136 | (missing) | (missing) | | (unavailable | [facility] | | | | + + + +-------+ + + + + | Result panel 12 | + + + + + +-------+ + + | | 2023-02-20 | [facility] | 4.3 | (missing) | (missing) | | (unavailable | [facility] | | | | + + + +-------+ + + + + | Result panel 13 | + + + + + +-------+ + + | | 2023-02-20 | [facility] | 101 | (missing) | (missing) | | (unavailable | [facility] | | | | + + + +-------+ + + + + | Result panel 14 | + + + + + +------+ + + | | 2023-02-20 | [facility] | 31 | (missing) | (missing) | | (unavailable | [facility]07 [facility] | | | | + + + +------+ + + + + | Result panel 15 | + + + + + +-------+ + + | | 2023-02-20 | [facility] | 8.3 | (missing) | (missing) | | (unavailable | [facility] | | | | + + + +-------+ + + + + | Result panel 16 | + + + + + +-------+---------+ + | | 2023-02-20 | [facility] | 9.1 | mg/dL | (missing) | | (unavailable | [facility]07 [facility] | | | | + + + +-------+---------+ + + + | Result panel 17 | + + + + + +-------+ + + | | 2023-02-20 | [facility] | 7.2 | (missing) | (missing) | | (unavailable | [facility] | | | | + + + +-------+ + + + + | Result panel 18 | + + + + + +-------+ + + | | 2023-02-20 | [facility] | 3.7 | (missing) | (missing) | | (unavailable | [facility]07 [facility] | | | | + + + +-------+ + + + + | Result panel 19 | + + + + + +-------+ + + | | 2023-02-20 | [facility] | 3.5 | (missing) | (missing) | | (unavailable | [facility] | | | | + + + +-------+ + + + + | Result panel 20 | + + + + + +--------+ + + | | 2023-02-20 | [facility] | 1.06 | (missing) | (missing) | | (unavailable | [facility] | | | | + + + +--------+ + + + + | Result panel 21 | + + + + + +-------+ + + | | 2023-02-20 | [facility] | 0.3 | (missing) | (missing) | | (unavailable | [facility] | | | | + + + +-------+ + + + + | Result panel 22 | + + + + + +------+ + + | | 2023-02-20 | [facility] | 17 | (missing) | (missing) | | (unavailable | [facility] | | | | + + + +------+ + + + + | Result panel 23 | + + + + + +------+ + + | | 2023-02-20 | [facility] | 26 | (missing) | (missing) | | (unavailable | [facility] | | | | + + + +------+ + + + + | Result panel 24 | + + + + + +------+ + + | | 2023-02-20 | [facility] | 90 | (missing) | (missing) | | (unavailable | [facility] | | | | + + + +------+ + + + + | Result panel 25 | + + + + + +-------+ + + | | 2023-02-20 | [facility] | 6.2 | (missing) | (missing) | | (unavailable | [facility] | | | | + + + +-------+ + + + + | Result panel 26 | + + + + + +--------+ + + | | 2023-02-20 | [facility] | 4.41 | (missing) | (missing) | | (unavailable | [facility] | | | | + + + +--------+ + + + + | Result panel 27 | + + + + + +--------+ + + | | 2023-02-20 | [facility] | 13.1 | (missing) | (missing) | | (unavailable | [facility] | | | | + + + +--------+ + + + + | Result panel 28 | + + + + + +--------+ + + | | 2023-02-20 | [facility] | 40.1 | (missing) | (missing) | | (unavailable | [facility] | | | | + + + +--------+ + + + + | Result panel 29 | + + + + + +--------+ + + | | 2023-02-20 | [facility] | 90.9 | (missing) | (missing) | | (unavailable | : [facility] | | | | + + + +--------+ + + + + | Result panel 30 | + + + + + +--------+ + + | | 2023-02-20 | [facility] | 29.6 | (missing) | (missing) | | (unavailable | [facility] | | | | + + + +--------+ + + + + | Result panel 31 | + + + + + +--------+ + + | | 2023-02-20 | [facility] | 32.6 | (missing) | (missing) | | (unavailable | [facility]07 [facility] | | | | + + + +--------+ + + + + | Result panel 32 | + + + + + +--------+ + + | | 2023-02-20 | [facility] | 13.8 | (missing) | (missing) | | (unavailable | [facility]07 [facility] | | | | + + + +--------+ + + + + | Result panel 33 | + + + + + +-------+ + + | | 2023-02-20 | [facility] | 242 | (missing) | (missing) | | (unavailable | [facility] | | | | + + + +-------+ + + + + | Result panel 34 | + + + + + +--------+ + + | | 2023-04-02 | [facility] | 0.48 | (missing) | (missing) | | (unavailable | [facility]30:07 [facility] | | | | + + + +--------+ + + + + | Result panel 35 | + + + + + +-------+---------+ + | | 2023-04-02 | [facility] | 2.3 | mg/dL | (missing) | | (unavailable | [facility]30:07 [facility] | | | | + + + +-------+---------+ + + + | Result panel 36 | + + + + + +-------+ + + | | 2023-04-02 | [facility] | 7.1 | (missing) | (missing) | | (unavailable | [facility] | | | | + + + +-------+ + + + + | Result panel 37 | + + + + + +-------+ + + | | 2023-04-02 | [facility] | 3.7 | (missing) | (missing) | | (unavailable | 09:30:07 | [facility] | | | | + + + +-------+ + + + + | Result panel 38 | + + + + + +-------+ + + | | 2023-04-02 | [facility] | 3.4 | (missing) | (missing) | | (unavailable | 09:30:07 | [facility] | | | | + + + +-------+ + + + + | Result panel 39 | + + + + + +--------+ + + | | 2023-04-02 | [facility] | 1.09 | (missing) | (missing) | | (unavailable | 09:30:07 | [facility] | | | | + + + +--------+ + + + + | Result panel 40 | + + + + + +-------+ + + | | 2023-04-02 | [facility] | 0.5 | (missing) | (missing) | | (unavailable | 09:30:07 | [facility] | | | | + + + +-------+ + + + + | Result panel 41 | + + + + + +------+ + + | | 2023-04-02 | [facility] | 14 | (missing) | (missing) | | (unavailable | 09:30:07 | [facility] | | | | + + + +------+ + + + + | Result panel 42 | + + + + + +------+ + + | | 2023-04-02 | [facility] | 24 | (missing) | (missing) | | (unavailable | 09:30:07 | [facility] | | | | + + + +------+ + + + + | Result panel 43 | + + + + + +------+ + + | | 2023-04-02 | [facility] | 94 | (missing) | (missing) | | (unavailable | 09:30:07 | [facility] | | | | + + + +------+ + + + + | Result panel 44 | + + + + + +-------+ + + | | 2023-04-02 | [facility] | 6.2 | (missing) | (missing) | | (unavailable | 09:30:07 | [facility] | | | | + + + +-------+ + + + + | Result panel 45 | + + + + + +--------+ + + | | 2023-04-04 | [facility] | 10.2 | (missing) | (missing) | | (unavailable | 05:22:07 | [facility] | | | | + + + +--------+ + + + + | Result panel 46 | + + + + + +--------+ + + | | 2023-04-04 | [facility] | 4.23 | (missing) | (missing) | | (unavailable | 05:22:07 | [facility] | | | | + + + +--------+ + + + + | Result panel 47 | + + + + + +--------+ + + | | 2023-04-04 | [facility] | 12.4 | (missing) | (missing) | | (unavailable | 05:22:07 [facility] | | | | + + + +--------+ + + + + | Result panel 48 | + + + + + +--------+ + + | | 2023-04-04 | [facility] | 38.5 | (missing) | (missing) | | (unavailable | 05:22:07 [facility] | | | | + + + +--------+ + + + + | Result panel 49 | + + + + + +--------+ + + | | 2023-04-04 | [facility] | 91.0 | (missing) | (missing) | | (unavailable | 05:22:07 [facility] | | | | + + + +--------+ + + + + | Result panel 50 | + + + + + +--------+ + + | | 2023-04-04 | [facility] | 29.4 | (missing) | (missing) | | (unavailable | 05:22:07 [facility] | | | | + + + +--------+ + + + + | Result panel 51 | + + + + + +--------+ + + | | 2023-04-04 | [facility] | 32.3 | (missing) | (missing) | | (unavailable | 05:22:07 [facility] | | | | + + + +--------+ + + + + | Result panel 52 | + + + + + +--------+ + + | | 2023-04-04 | [facility] | 14.0 | (missing) | (missing) | | (unavailable | 05:22:07 [facility] | | | | + + + +--------+ + + + + | Result panel 53 | + + + + + +-------+ + + | | 2023-04-04 | [facility] | 235 | (missing) | (missing) | | (unavailable | 05:22:07 [facility] | | | | + + + +-------+ + + + + | Result panel 54 | + + + + + +--------+ + + | | 2023-04-04 | [facility] | 66.6 | (missing) | (missing) | | (unavailable | 05:22:07 [facility] | | | | + + + +--------+ + + + + | Result panel 55 | + + + + + +--------+ + + | | 2023-04-04 | [facility] | 24.1 | (missing) | (missing) | | (unavailable | 05:22:07 [facility] | | | | + + + +--------+ + + + + | Result panel 56 | + + + + + +-------+ + + | | 2023-04-04 | [facility] | 8.0 | (missing) | (missing) | | (unavailable | 05:22:07 [facility] | | | | + + + +-------+ + + + + | Result panel 57 | + + + + + +-------+ + + | | 2023-04-04 | [facility] | 0.7 | (missing) | (missing) | | (unavailable | 05:22:07 [facility] | | | | + + + +-------+ + + + + | Result panel 58 | + + + + + +-------+ + + | | 2023-04-04 | [facility] | 0.6 | (missing) | (missing) | | (unavailable | 05:22:07 [facility] | | | | + + + +-------+ + + + + | Result panel 59 | + + + + + +-------+---------+ + | | 2023-04-04 | [facility] | 110 | mg/dL | (missing) | | (unavailable | 05:22:07 | [facility] | | | | + + + +-------+---------+ + + + | Result panel 60 | + + + + + +------+---------+ + | | 2023-04-04 | [facility] | 26 | mg/dL | (missing) | | (unavailable | 05:22:07 [facility] | | | | + + + +------+---------+ + + + | Result panel 61 | + + + + + +--------+---------+ + | | 2023-04-04 | [facility] | 0.78 | mg/dL | (missing) | | (unavailable | 05:22:07 | [facility] | | | | + + + +--------+---------+ + + + | Result panel 62 | + + + + + +------+ + + | | 2023-04-04 | [facility] | 76 | (missing) | (missing) | | (unavailable | 05:22:07 [facility] | | | | + + + +------+ + + + + | Result panel 63 | + + + + + +---------+ + + | | 2023-04-04 | [facility] | 33.33 | (missing) | (missing) | | (unavailable | 05:22:07 [facility] | | | | + + + +---------+ + + + + | Result panel 64 | + + + + + +-------+ + + | | 2023-04-04 | [facility] | 142 | (missing) | (missing) | | (unavailable | 05:22:07 [facility] | | | | + + + +-------+ + + + + | Result panel 65 | + + + + + +-------+ + + | | 2023-04-04 | [facility] | 4.4 | (missing) | (missing) | | (unavailable | 05:22:07 [facility] | | | | + + + +-------+ + + + + | Result panel 66 | + + + + + +-------+ + + | | 2023-04-04 | [facility] | 107 | (missing) | (missing) | | (unavailable | 05:22:07 [facility] | | | | + + + +-------+ + + + + | Result panel 67 | + + + + + +------+ + + | | 2023-04-04 | [facility] | 29 | (missing) | (missing) | | (unavailable | 05:22:07 [facility] | | | | + + + +------+ + + + + | Result panel 68 | + + + + + +--------+ + + | | 2023-04-04 | [facility] | 10.4 | (missing) | (missing) | | (unavailable | 05:22:07 [facility] | | | | + + + +--------+ + + + + | Result panel 69 | + + + + + +-------+---------+ + | | 2023-04-04 | [facility] | 8.9 | mg/dL | (missing) | | (unavailable | 05:22:07 [facility] | | | | + + + +-------+---------+ + + + | Result panel 70 | + + + + + +-------+ + + | | 2023-05-25 | [facility] | 9.6 | (missing) | (missing) | | (unavailable | 07:50:07 [facility] | | | | + + + +-------+ + + + + | Result panel 71 | + + + + + +--------+ + + | | 2023-05-25 | [facility] | 78.3 | (missing) | (missing) | | (unavailable | 07:50:07 [facility] | | | | + + + +--------+ + + + + | Result panel 72 | + + + + + +--------+ + + | | 2023-05-25 | [facility] | 12.0 | (missing) | (missing) | | (unavailable | 07:50:07 [facility] | | | | + + + +--------+ + + + + | Result panel 73 | + + + + + +-------+ + + | | 2023-05-25 | [facility] | 6.7 | (missing) | (missing) | | (unavailable | 07:50:07 [facility] | | | | + + + +-------+ + + + + | Result panel 74 | + + + + + +-------+ + + | | 2023-05-25 | [facility] | 0.8 | (missing) | (missing) | | (unavailable | 07:50:07 [facility] | | | | + + + +-------+ + + + + | Result panel 75 | + + + + + +-------+ + + | | 2023-05-25 | [facility] | 2.2 | (missing) | (missing) | | (unavailable | 07:50:07 [facility] | | | | + + + +-------+ + + + + | Result panel 76 | + + + + + +--------+ + + | | 2023-05-25 | [facility] | 4.53 | (missing) | (missing) | | (unavailable | 07:50:07 [facility] | | | | + + + +--------+ + + + + | Result panel 77 | + + + + + +--------+ + + | | 2023-05-25 | [facility] | 13.3 | (missing) | (missing) | | (unavailable | 07:50:07 [facility] | | | + + + +--------+ + + + + | Result panel 78 | + + + + + +-------+---------+ + | | 2023-05-25 | [facility] | 134 | mg/dL | (missing) | | (unavailable | 07:50:07 [facility] | | | | + + + +-------+---------+ + + + | Result panel 79 | + + + + + +------+---------+ + | | 2023-05-25 | [facility] | 15 | mg/dL | (missing) | | (unavailable | 07:50:07 [facility] | | | | + + + +------+---------+ + + + | Result panel 80 | + + + + + +--------+---------+ + | | 2023-05-25 | [facility] | 0.73 | mg/dL | (missing) | | (unavailable | 07:50:07 [facility] | | | | + + + +--------+---------+ + + + | Result panel 81 | + + + + + +------+ + + | | 2023-05-25 | [facility] | 83 | (missing) | (missing) | | (unavailable | 07:50:07 [facility] | | | | + + + +------+ + + + + | Result panel 82 | + + + + + +---------+ + + | | 2023-05-25 | [facility] | 20.54 | (missing) | (missing) | | (unavailable | 07:50:07 [facility] | | | | + + + +---------+ + + + + | Result panel 83 | + + + + + +--------+ + + | | 2023-05-25 | [facility] | 40.9 | (missing) | (missing) | | (unavailable | 07:50:07 [facility] | | | | + + + +--------+ + + + + | Result panel 84 | + + + + + +-------+ + + | | 2023-05-25 | [facility] | 137 | (missing) | (missing) | | (unavailable | 07[facility]50:07 [facility] | | | | + + + +-------+ + + + + | Result panel 85 | + + + + + +-------+ + + | | 2023-05-25 | [facility] | 4.5 | (missing) | (missing) | | (unavailable | 07:50:07 [facility] | | | | + + + +-------+ + + + + | Result panel 86 | + + + + + +-------+ + + | | 2023-05-25 | [facility] | 101 | (missing) | (missing) | | (unavailable | 07:50:07 [facility] | | | | + + + +-------+ + + + + | Result panel 87 | + + + + + +------+ + + | | 2023-05-25 | [facility] | 30 | (missing) | (missing) | | (unavailable | 07:50:07 [facility] | | | | + + + +------+ + + + + | Result panel 88 | + + + + + +--------+ + + | | 2023-05-25 | [facility] | 10.5 | (missing) | (missing) | | (unavailable | 07:50:07 [facility] | | | | + + + +--------+ + + + + | Result panel 89 | + + + + + +-------+---------+ + | | 2023-05-25 | [facility] | 9.4 | mg/dL | (missing) | | (unavailable | 07:50:07 [facility] | | | | + + + +-------+---------+ + + + | Result panel 90 | + + + + + +-------+ + + | | 2023-05-25 | [facility] | 7.1 | (missing) | (missing) | | (unavailable | 07:50:07 [facility] | | | | + + + +-------+ + + + + | Result panel 91 | + + + + + +-------+ + + | | 2023-05-25 | [facility] | 3.5 | (missing) | (missing) | | (unavailable | 07:50:07 [facility] | | | | + + + +-------+ + + + + | Result panel 92 | + + + + + +-------+ + + | | 2023-05-25 | [facility] | 3.6 | (missing) | (missing) | | (unavailable | 07:50:07 [facility] | | | | + + + +-------+ + + + + | Result panel 93 | + + + + + +--------+ + + | | 2023-05-25 | [facility] | 0.97 | (missing) | (missing) | | (unavailable | 07:50:07 [facility] | | | | + + + +--------+ + + + + | Result panel 94 | + + + + + +--------+ + + | | 2023-05-25 | [facility] | 90.4 | (missing) | (missing) | | (unavailable | 07:50:07 [facility] | | | | + + + +--------+ + + + + | Result panel 95 | + + + + + +-------+ + + | | 2023-05-25 | [facility] | 0.6 | (missing) | (missing) | | (unavailable | 07:50:07 [facility] | | | | + + + +-------+ + + + + | Result panel 96 | + + + + + +------+ + + | | 2023-05-25 | [facility] | 20 | (missing) | (missing) | | (unavailable | 07:50:07 [facility] | | | | + + + +------+ + + + + | Result panel 97 | + + + + + +------+ + + | | 2023-05-25 | [facility] | 19 | (missing) | (missing) | | (unavailable | 07:50:07 [facility] | | | | + + + +------+ + + + + | Result panel 98 | + + + + + +------+ + + | | 2023-05-25 | [facility] | 90 | (missing) | (missing) | | (unavailable | 07:50:07 [facility] | | | | + + + +------+ + + + + | Result panel 99 | + + + + + +------+ + + | | 2023-05-25 | [facility] | 99 | (missing) | (missing) | | (unavailable | 07:50:07 [facility] | | | | + + + +------+ + + + + | Result panel 100 | + + + + + +--------+ + + | | 2023-05-25 | [facility] | 29.4 | (missing) | (missing) | | (unavailable | 07:50:07 [facility] | | | | + + + +--------+ + + + + | Result panel 101 | + + + + + +--------+ + + | | 2023-05-25 | [facility] | 32.5 | (missing) | (missing) | | (unavailable | 07:50:07 [facility] | | | | + + + +--------+ + + + + | Result panel 102 | + + + + + +--------+ + + | | 2023-05-25 | [facility] | 14.3 | (missing) | (missing) | | (unavailable | 07:50:07 [facility] | | | | + + + +--------+ + + + + | Result panel 103 | + + + + + +-------+ + + | | 2023-05-25 | [facility] | 241 | (missing) | (missing) | | (unavailable | 07:50:07 [facility] | | | | + + + +-------+ + + + + | Result panel 104 | + + + + + + + + + | | 2023-05-25 | [facility] | YELLOW | (missing) | (missing) | | (unavailable | 09:34:07 [facility] | | | | + + + + + + + + + | Result panel 105 | + + + + + +---------+ + + | | 2023-05-25 | [facility] | CLEAR | (missing) | (missing) | | (unavailable | 09:34:07 [facility] | | | | + + + +---------+ + + + + | Result panel 106 | + + + + + + + + + | | 2023-05-25 | [facility] | NEGATIVE | (missing) | (missing) | | (unavailable | 09:34:07 [facility] | | | | + + + + + + + + + | Result panel 107 | + + + + + + + + + | | 2023-05-25 | [facility] | NEGATIVE | (missing) | (missing) | | (unavailable | 09:34:07 [facility] | | | | + + + + + + + + + | Result panel 108 | + + + + + + + + + | | 2023-05-25 | [facility] | NEGATIVE | (missing) | (missing) | | (unavailable | 09:34:07 [facility] | | | | + + + + + + + + + | Result panel 109 | + + + + + + + + + | | 2023-05-25 | [facility] | <=1.005 | (missing) | (missing) | | (unavailable | 09:34:07 [facility] | | | | + + + + + + + + + | Result panel 110 | + + + + + + + + + | | 2023-05-25 | [facility] | NEGATIVE | (missing) | (missing) | | (unavailable | 09:34:07 [facility] | | | | + + + + + + + + + | Result panel 111 | + + + + + +-------+ + + | | 2023-05-25 | [facility] | 6.5 | (missing) | (missing) | | (unavailable | 09:34:07 [facility] | | | | + + + +-------+ + + + + | Result panel 112 | + + + + + + + + + | | 2023-05-25 | [facility] | NEGATIVE | (missing) | (missing) | | (unavailable | 09:34:07 [facility] | | | | + + + + + + + + + | Result panel 113 | + + + + + + + + + | | 2023-05-25 | [facility] | NORMAL | (missing) | (missing) | | (unavailable | 09:34:07 [facility] | | | | + + + + + + + + + | Result panel 114 | + + + + + + + + + | | 2023-05-25 | [facility] | POSITIVE | (missing) | (missing) | | (unavailable | 09:34:07 [facility] | | | | + + + + + + + + + | Result panel 115 | + + + + + + + + + | | 2023-05-25 | [facility] | NEGATIVE | (missing) | (missing) | | (unavailable | 09:34:07 [facility] | | | | + + + + + + + + + | Result panel 116 | + + + + + +-------+ + + | | 2023-05-25 | [facility] | 0-1 | (missing) | (missing) | | (unavailable | 09:34:07 [facility] | | | | + + + +-------+ + + + + | Result panel 117 | + + + + + +--------+ + + | | 2023-05-25 | [facility] | 7-11 | (missing) | (missing) | | (unavailable | 09:34:07 [facility] | | | | + + + +--------+ + + + + | Result panel 118 | + + + + + + + + + | | 2023-05-25 | [facility] | SQUAMOUS 3+ | (missing) | (missing) | | (unavailable | 09:34:07 [facility] | | | | + + + + + + + + + | Result panel 119 | + + + + + + + + + | | 2023-05-25 | [facility] | NONE SEEN | (missing) | (missing) | | (unavailable | 09:34:07 [facility] | | | | + + + + + + + + + | Result panel 120 | + + + + + +------+ + + | | 2023-05-25 | [facility] | 4+ | (missing) | (missing) | | (unavailable | 09:34:07 [facility] | | | | + + + +------+ + + + + | Result panel 121 | + + + + + + + + + | | 2023-05-25 | [facility] | NONE SEEN | (missing) | (missing) | | (unavailable | 09:34:07 [facility] | | | | + + + + + + + + + | Result panel 122 | + + + + + +------+ + + | | 2023-05-25 | [facility] | No | (missing) | (missing) | | (unavailable | 09:34:07 [facility] | | | | + + + +------+ + + + + | Result panel 123 | + + + + + + + + + | | 2023-05-25 | [facility] | CLEAN CATCH | (missing) | (missing) | | (unavailable | 09:34:07 [facility] | | | | + + + + + + + Social History No information. Vital Signs + + + +---------+ | date | measurement | value | units | + + + +---------+ | 2022-10-07 00:00 | BMI | 37.5 | kg/m2 | + + + +---------+ | 2022-10-07 00:00 | BP_diastolic | 66 | mmHg | + + + +---------+ | 2022-10-07 00:00 | BP_systolic | 151 | mmHg | + + + +---------+ | 2022-10-07 00:00 | heart_rate | 79 | /min | + + + +---------+ | 2022-10-07 00:00 | height_metric | 165.1 | cm | + + + +---------+ | 2022-10-07 00:00 | height_standard | 65 | in | + + + +---------+ | 2022-10-07 00:00 | o2_saturation | 92 | % | + + + +---------+ | 2022-10-07 00:00 | respiration_rate | 20 | /min | + + + +---------+ | 2022-10-07 00:00 | temperature_metric | 36.83 | C | | | | | | + + + +---------+ | 2022-10-07 00:00 | | 98.3 | F | | | temperature_standar | | | | | d | | | + + + +---------+ | 2022-10-07 00:00 | weight_metric | 102.09 | kg | + + + +---------+ | 2022-10-07 00:00 | weight_standard | 225.06 | lb | + + + +---------+ | 2022-10-07 00:00 | weight_standard | 225.07 | lb | + + + +---------+ | 2023-02-20 00:00 | BMI | 37.4 | kg/m2 | + + + +---------+ | 2023-02-20 00:00 | height_metric | 165.1 | cm | + + + +---------+ | 2023-02-20 00:00 | height_standard | 65 | in | + + + +---------+ | 2023-02-20 00:00 | weight_metric | 102 | kg | + + + +---------+ | 2023-02-20 00:00 | weight_standard | 224.87 | lb | + + + +---------+ | 2023-02-25 00:00 | BP_diastolic | 55 | mmHg | + + + +---------+ | 2023-02-25 00:00 | BP_systolic | 152 | mmHg | + + + +---------+ | 2023-02-25 00:00 | heart_rate | 61 | /min | + + + +---------+ | 2023-02-25 00:00 | o2_saturation | 96 | % | + + + +---------+ | 2023-02-25 00:00 | respiration_rate | 16 | /min | + + + +---------+ | 2023-02-25 00:00 | temperature_metric | 37.22 | C | | | | | | + + + +---------+ | 2023-02-25 00:00 | | 99 | F | | | temperature_standar | | | | | d | | | + + + +---------+ | 2023-04-02 00:00 | BMI | 37.8 | kg/m2 | + + + +---------+ | 2023-04-02 00:00 | height_metric | 165.1 | cm | + + + +---------+ | 2023-04-02 00:00 | height_standard | 65 | in | + + + +---------+ | 2023-04-02 00:00 | weight_metric | 103 | kg | + + + +---------+ | 2023-04-02 00:00 | weight_standard | 227.08 | lb | + + + +---------+ | 2023-04-07 00:00 | BP_diastolic | 60 | mmHg | + + + +---------+ | 2023-04-07 00:00 | BP_systolic | 142 | mmHg | + + + +---------+ | 2023-04-07 00:00 | heart_rate | 78 | /min | + + + +---------+ | 2023-04-07 00:00 | o2_saturation | 96 | % | + + + +---------+ | 2023-04-07 00:00 | respiration_rate | 16 | /min | + + + +---------+ | 2023-04-07 00:00 | temperature_metric | 37.06 | C | | | | | | + + + +---------+ | 2023-04-07 00:00 | | 98.7 | F | | | temperature_standar | | | | | d | | | + + + +---------+ | 2023-05-25 00:00 | BMI | 37.6 | kg/m2 | + + + +---------+ | 2023-05-25 00:00 | BP_diastolic | 63 | mmHg | + + + +---------+ | 2023-05-25 00:00 | BP_systolic | 130 | mmHg | + + + +---------+ | 2023-05-25 00:00 | heart_rate | 70 | /min | + + + +---------+ | 2023-05-25 00:00 | height_metric | 165.1 | cm | + + + +---------+ | 2023-05-25 00:00 | height_standard | 65 | in | + + + +---------+ | 2023-05-25 00:00 | o2_saturation | 95 | % | + + + +---------+ | 2023-05-25 00:00 | respiration_rate | 15 | /min | + + + +---------+ | 2023-05-25 00:00 | temperature_metric | 37.11 | C | | | | | | + + + +---------+ | 2023-05-25 00:00 | | 98.8 | F | | | temperature_standar | | | | | d | | | + + + +---------+ | 2023-05-25 00:00 | weight_metric | 102.51 | kg | + + + +---------+ | 2023-05-25 00:00 | weight_standard | 226 | lb | + + + +---------+"
--- OUTSIDE RECORDS SUMMARY | ~2023-06-04 | XMS | Continuity of Care Document ---
Demographics + + + | Address | [address] [address] | | | [place] [address] | + + + | Preferred Language | Unknown | + + + | Marital Status | | + + + | Yarsanism Affiliation | Unknown | + + + | Race | White | + + + | Ethnic Group | Not or | + + + Author + + + | Author | [facility] | + + + | Organization | [facility] | + + + | Address | [address] [facility] | | | [place] [address] | + + + | Phone | | + + + Care Team Providers + + + + | Care Senior C Developer Name | Role | Phone | + [...] | 2023-02-25 00:00 | FORMOTEROL FUMARATE | [facility] | + + + + | 2023-04-07 00:00 | FORMOTEROL FUMARATE | [facility] | + + + + | 2023-05-25 00:00 | FORMOTEROL FUMARATE | [facility] | + + + + | 2022-10-07 00:00 | LACTOBACILLUS ACIDOPHILUS | [facility] | + + + + | 2023-02-25 00:00 | LACTOBACILLUS ACIDOPHILUS | [facility] | + + + + | 2023-04-07 00:00 | LACTOBACILLUS ACIDOPHILUS | [facility] | + + + + | 2023-05-25 00:00 | LACTOBACILLUS ACIDOPHILUS | [facility] | + + + + | 2023-02-25 00:00 | IPRATROPIUM/ALBUTEROL | [facility] | | | SULFATE | | + + + + | 2023-04-07 00:00 | IPRATROPIUM/ALBUTEROL | [facility] | | | SULFATE | | + + + + | 2023-05-25 00:00 | IPRATROPIUM/ALBUTEROL | [facility] | | | SULFATE | | + + + + | 2021-09-30 00:00 | BENZONATATE | [facility] | + + + + | 2021-09-30 00:00 | BENZONATATE | [facility] | + + + + | 2021-09-30 00:00 | BENZONATATE | [facility] | + + + + | 2022-10-07 00:00 | MAGNESIUM OXIDE | [facility] | + + + + | 2023-02-25 00:00 | MAGNESIUM OXIDE | [facility] | + + + + | 2023-04-07 00:00 | MAGNESIUM OXIDE | [facility] | + + + + | 2023-05-25 00:00 | MAGNESIUM OXIDE | [facility] | + + + + | 2022-10-07 00:00 | Ascorbic Acid | [facility] | + + + + | 2023-02-25 00:00 | Ascorbic Acid | [facility] | + + + + | 2023-04-07 00:00 | Ascorbic Acid | [facility] | + + + + | 2023-05-25 00:00 | Ascorbic Acid | [facility] | + + + + | 2022-10-07 00:00 | PAROXETINE HCL | [facility] | + + + + | 2023-02-25 00:00 | PAROXETINE HCL | [facility] | + + + + | 2023-04-07 00:00 | PAROXETINE HCL | [facility] | + + + + | 2023-05-25 00:00 | PAROXETINE HCL | [facility] | + + + + | 2021-09-30 00:00 | AZITHROMYCIN | [facility] | + + + + | 2021-09-30 00:00 | AZITHROMYCIN | [facility] | + + + + | 2021-09-30 00:00 | AZITHROMYCIN | [facility] | + + + + | 2022-10-07 00:00 | Mepolizumab | [facility] | + + + + | 2023-02-25 00:00 | Mepolizumab | [facility] | + + + + | 2023-04-07 00:00 | Mepolizumab | [facility] | + + + + | 2023-05-25 00:00 | Mepolizumab | [facility] | + + + + | 2023-02-25 00:00 | Potassium Citrate | [facility] | + + + + | 2023-04-07 00:00 | Potassium Citrate | [facility] | + + + + | 2023-05-25 00:00 | Potassium Citrate | [facility] | + + + + | 2022-10-07 00:00 | CLOPIDOGREL BISULFATE | [facility] | + + + + | 2023-02-25 00:00 | CLOPIDOGREL BISULFATE | [facility] | + + + + | 2023-04-07 00:00 | CLOPIDOGREL BISULFATE | [facility] | + + + + | 2023-05-25 00:00 | CLOPIDOGREL BISULFATE | [facility] | + + + + | 2021-09-30 00:00 | predniSONE | [facility] | + + + + | 2021-09-30 00:00 | predniSONE | [facility] | + + + + | 2021-09-30 00:00 | predniSONE | [facility] | + + + + | 2022-10-07 00:00 | LISINOPRIL | [facility] | + + + + | 2023-02-25 00:00 | LISINOPRIL | [facility] | + + + + | 2023-04-07 00:00 | LISINOPRIL | [facility] | + + + + | 2023-05-25 00:00 | LISINOPRIL | [facility] | + + + + | 2022-10-07 00:00 | Ezetimibe | [facility] | + + + + | 2023-04-07 00:00 | Ezetimibe | [facility] | + + + + | 2023-05-25 00:00 | Ezetimibe | [facility] | + + + + | 2020-09-07 00:00 | BUDESONIDE | [facility] | + + + + | 2020-09-07 00:00 | BUDESONIDE | [facility] | + + + + | 2020-09-07 00:00 | BUDESONIDE | [facility] | + + + + | 2023-04-07 00:00 | BUDESONIDE | [facility] | + + + + | 2023-02-25 00:00 | Cholecalciferol (Vitamin | [facility] | | | D3) | | + + + + | 2023-04-07 00:00 | Cholecalciferol (Vitamin | [facility] | | | D3) | | + + + + | 2023-05-25 00:00 | Cholecalciferol (Vitamin | [facility] | | | D3) | | + + + + | 2023-05-25 00:00 | AMOXICILLIN/POTASSIUM CLAV | [facility] | | | | | + + + + | 2022-10-07 00:00 | ALBUTEROL SULFATE | [facility] | + + + + | 2023-02-25 00:00 | OXYBUTYNIN CHLORIDE | [facility] | + + + + | 2023-02-25 00:00 | BUSPIRONE HCL | [facility] | + + + + | 2023-05-25 00:00 | BUSPIRONE HCL | [facility] | + + + + Problems + + + + | date | description | facility | + + + + | 2020-07-31 00:00 | Asthma with acute | [facility] | | | exacerbation | | + + + + | 2020-07-31 00:00 | Asthma with acute | [facility] | | | exacerbation | | + + + + | 2020-07-31 00:00 | Asthma with acute | [facility] | | | exacerbation | | + + + + | 2021-10-08 00:00 | Injury of head | [facility] | + + + + | 2021-10-08 00:00 | Injury of head | [facility] | + + + + | 2021-10-08 00:00 | Injury of head | [facility] | + + + + | 2021-10-08 00:00 | Fall | [facility] | + + + + | 2021-10-08 00:00 | Fall | [facility] | + + + + | 2021-10-08 00:00 | Fall | [facility] | + + + + | 2021-11-25 00:00 | Bronchiolitis due to | [facility] | | | respiratory syncytial virus | | | | (RSV) | | + + + + | 2021-11-25 00:00 | Bronchiolitis due to | [facility] | | | respiratory syncytial virus | | | | (RSV) | | + + + + | 2021-11-25 00:00 | Bronchiolitis due to | [facility] | | | respiratory syncytial virus | | | | (RSV) | | + + + + | 2021-11-25 00:00 | Reactive airway disease | [facility] | | | with wheezing | | + + + + | 2021-11-25 00:00 | Reactive airway disease | [facility] | | | with wheezing | | + + + + | 2021-11-25 00:00 | Reactive airway disease | [facility] | | | with wheezing | | + + + + | 2021-11-25 00:00 | Acute respiratory failure | [facility] | | | with hypercapnia | | + + + + | 2021-11-25 00:00 | Acute respiratory failure | [facility] | | | with hypercapnia | | + + + + | 2021-11-25 00:00 | Acute respiratory failure | [facility] | | | with hypercapnia | | + + + + | 2022-10-07 00:00 | Otitis externa of left ear | [facility] | | | | | + + + + | 2022-10-07 00:00 | Otitis externa of left ear | [facility] | | | | | + + + + | 2022-10-07 00:00 | Otitis externa of left ear | [facility] | | | | | + + [...] + + + | 2022-10-07 15:02 | 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 | [facility] | | | ANTITHROMBOTICS/ANTIPLA | | + + + + | 2022-10-07 15:02 | OTHER CHEMICAL SUPERVISOR (CURRENT) | [facility] | | | [...] + + | 2023-02-25 08:00 | OTHER CHEMICAL SUPERVISOR (CURRENT) | [facility] | | | DRUG THERAPY | | + + + + | 2023-03-28 13:55 | SEVERE PERSISTENT ASTHMA, | [facility] | | | UNCOMPLICATED | | + + + + | 2023-04-02 00:00 | Exacerbation of asthma | [facility] | + + + + | 2023-04-04 [...] + + | 2023-04-04 12:40 | OTHER NURSING HOME (CURRENT) | [facility] | | | DRUG [...] + | 2023-05-25 00:00 | Diverticulitis | [facility] | + + + + | 2023-05-25 00:00 | Cyst of ovary | [facility] | + + + + | 2023-05-25 [...] + + | 2023-05-25 07:39 | OTHER NURSING HOME (CURRENT) | [facility] | | | DRUG [...]
--- OUTSIDE RECORDS SUMMARY | ~2023-06-04 | XMS | Continuity of Care Document ---
Demographics + + + | Address | [address] [address] | | | [place] [address] | + + + | Preferred Language | Unknown | + + + | Marital Status | | + + + | Roman Catholic Affiliation | Unknown | + + + | Race | White | + + + | Ethnic Group | Not or | + + + Author + + + | Author | [facility] | + + + | Organization | [facility] | + + + | Address | [address] [facility] | | | [place] [address] | + + + | Phone | | + + + Care Team Providers + + + + | Care Feeder/Folder Name | Role | Phone | + [...] | 2023-02-25 00:00 | FORMOTEROL FUMARATE | [facility] | + + + + | 2023-04-07 00:00 | FORMOTEROL FUMARATE | [facility] | + + + + | 2023-05-25 00:00 | FORMOTEROL FUMARATE | [facility] | + + + + | 2022-10-07 00:00 | LACTOBACILLUS ACIDOPHILUS | [facility] | + + + + | 2023-02-25 00:00 | LACTOBACILLUS ACIDOPHILUS | [facility] | + + + + | 2023-04-07 00:00 | LACTOBACILLUS ACIDOPHILUS | [facility] | + + + + | 2023-05-25 00:00 | LACTOBACILLUS ACIDOPHILUS | [facility] | + + + + | 2023-02-25 00:00 | IPRATROPIUM/ALBUTEROL | [facility] | | | SULFATE | | + + + + | 2023-04-07 00:00 | IPRATROPIUM/ALBUTEROL | [facility] | | | SULFATE | | + + + + | 2023-05-25 00:00 | IPRATROPIUM/ALBUTEROL | [facility] | | | SULFATE | | + + + + | 2021-09-30 00:00 | BENZONATATE | [facility] | + + + + | 2021-09-30 00:00 | BENZONATATE | [facility] | + + + + | 2021-09-30 00:00 | BENZONATATE | [facility] | + + + + | 2022-10-07 00:00 | MAGNESIUM OXIDE | [facility] | + + + + | 2023-02-25 00:00 | MAGNESIUM OXIDE | [facility] | + + + + | 2023-04-07 00:00 | MAGNESIUM OXIDE | [facility] | + + + + | 2023-05-25 00:00 | MAGNESIUM OXIDE | [facility] | + + + + | 2022-10-07 00:00 | Ascorbic Acid | [facility] | + + + + | 2023-02-25 00:00 | Ascorbic Acid | [facility] | + + + + | 2023-04-07 00:00 | Ascorbic Acid | [facility] | + + + + | 2023-05-25 00:00 | Ascorbic Acid | [facility] | + + + + | 2022-10-07 00:00 | PAROXETINE HCL | [facility] | + + + + | 2023-02-25 00:00 | PAROXETINE HCL | [facility] | + + + + | 2023-04-07 00:00 | PAROXETINE HCL | [facility] | + + + + | 2023-05-25 00:00 | PAROXETINE HCL | [facility] | + + + + | 2021-09-30 00:00 | AZITHROMYCIN | [facility] | + + + + | 2021-09-30 00:00 | AZITHROMYCIN | [facility] | + + + + | 2021-09-30 00:00 | AZITHROMYCIN | [facility] | + + + + | 2022-10-07 00:00 | Mepolizumab | [facility] | + + + + | 2023-02-25 00:00 | Mepolizumab | [facility] | + + + + | 2023-04-07 00:00 | Mepolizumab | [facility] | + + + + | 2023-05-25 00:00 | Mepolizumab | [facility] | + + + + | 2023-02-25 00:00 | Potassium Citrate | [facility] | + + + + | 2023-04-07 00:00 | Potassium Citrate | [facility] | + + + + | 2023-05-25 00:00 | Potassium Citrate | [facility] | + + + + | 2022-10-07 00:00 | CLOPIDOGREL BISULFATE | [facility] | + + + + | 2023-02-25 00:00 | CLOPIDOGREL BISULFATE | [facility] | + + + + | 2023-04-07 00:00 | CLOPIDOGREL BISULFATE | [facility] | + + + + | 2023-05-25 00:00 | CLOPIDOGREL BISULFATE | [facility] | + + + + | 2021-09-30 00:00 | predniSONE | [facility] | + + + + | 2021-09-30 00:00 | predniSONE | [facility] | + + + + | 2021-09-30 00:00 | predniSONE | [facility] | + + + + | 2022-10-07 00:00 | LISINOPRIL | [facility] | + + + + | 2023-02-25 00:00 | LISINOPRIL | [facility] | + + + + | 2023-04-07 00:00 | LISINOPRIL | [facility] | + + + + | 2023-05-25 00:00 | LISINOPRIL | [facility] | + + + + | 2022-10-07 00:00 | Ezetimibe | [facility] | + + + + | 2023-04-07 00:00 | Ezetimibe | [facility] | + + + + | 2023-05-25 00:00 | Ezetimibe | [facility] | + + + + | 2020-09-07 00:00 | BUDESONIDE | [facility] | + + + + | 2020-09-07 00:00 | BUDESONIDE | [facility] | + + + + | 2020-09-07 00:00 | BUDESONIDE | [facility] | + + + + | 2023-04-07 00:00 | BUDESONIDE | [facility] | + + + + | 2023-02-25 00:00 | Cholecalciferol (Vitamin | [facility] | | | D3) | | + + + + | 2023-04-07 00:00 | Cholecalciferol (Vitamin | [facility] | | | D3) | | + + + + | 2023-05-25 00:00 | Cholecalciferol (Vitamin | [facility] | | | D3) | | + + + + | 2023-05-25 00:00 | AMOXICILLIN/POTASSIUM CLAV | [facility] | | | | | + + + + | 2022-10-07 00:00 | ALBUTEROL SULFATE | [facility] | + + + + | 2023-02-25 00:00 | OXYBUTYNIN CHLORIDE | [facility] | + + + + | 2023-02-25 00:00 | BUSPIRONE HCL | [facility] | + + + + | 2023-05-25 00:00 | BUSPIRONE HCL | [facility] | + + + + Problems + + + + | date | description | facility | + + + + | 2020-07-31 00:00 | Asthma with acute | [facility] | | | exacerbation | | + + + + | 2020-07-31 00:00 | Asthma with acute | [facility] | | | exacerbation | | + + + + | 2020-07-31 00:00 | Asthma with acute | [facility] | | | exacerbation | | + + + + | 2021-10-08 00:00 | Injury of head | [facility] | + + + + | 2021-10-08 00:00 | Injury of head | [facility] | + + + + | 2021-10-08 00:00 | Injury of head | [facility] | + + + + | 2021-10-08 00:00 | Fall | [facility] | + + + + | 2021-10-08 00:00 | Fall | [facility] | + + + + | 2021-10-08 00:00 | Fall | [facility] | + + + + | 2021-11-25 00:00 | Bronchiolitis due to | [facility] | | | respiratory syncytial virus | | | | (RSV) | | + + + + | 2021-11-25 00:00 | Bronchiolitis due to | [facility] | | | respiratory syncytial virus | | | | (RSV) | | + + + + | 2021-11-25 00:00 | Bronchiolitis due to | [facility] | | | respiratory syncytial virus | | | | (RSV) | | + + + + | 2021-11-25 00:00 | Reactive airway disease | [facility] | | | with wheezing | | + + + + | 2021-11-25 00:00 | Reactive airway disease | [facility] | | | with wheezing | | + + + + | 2021-11-25 00:00 | Reactive airway disease | [facility] | | | with wheezing | | + + + + | 2021-11-25 00:00 | Acute respiratory failure | [facility] | | | with hypercapnia | | + + + + | 2021-11-25 00:00 | Acute respiratory failure | [facility] | | | with hypercapnia | | + + + + | 2021-11-25 00:00 | Acute respiratory failure | [facility] | | | with hypercapnia | | + + + + | 2022-10-07 00:00 | Otitis externa of left ear | [facility] | | | | | + + + + | 2022-10-07 00:00 | Otitis externa of left ear | [facility] | | | | | + + + + | 2022-10-07 00:00 | Otitis externa of left ear | [facility] | | | | | + + [...] + + + | 2022-10-07 15:02 | MIXER AND SCALER (CURRENT) USE OF | [facility] | | | ANTITHROMBOTICS/ANTIPLA | | + + + + | 2022-10-07 15:02 | OTHER MIXER AND SCALER (CURRENT) | [facility] | | | DRUG [...] + + | 2023-02-25 08:00 | OTHER MIXER AND SCALER (CURRENT) | [facility] | | | DRUG THERAPY | | + + + + | 2023-03-28 13:55 | SEVERE PERSISTENT ASTHMA, | [facility] | | | UNCOMPLICATED | | + + + + | 2023-04-02 00:00 | Exacerbation of asthma | [facility] | + + + + | 2023-04-04 [...] + + | 2023-04-04 12:40 | OTHER [facility] (CURRENT) | [facility] | | | DRUG [...] + | 2023-05-25 00:00 | Diverticulitis | [facility] | + + + + | 2023-05-25 00:00 | Cyst of ovary | [facility] | + + + + | 2023-05-25 [...] + + | 2023-05-25 07:39 | OTHER [facility] (CURRENT) | [facility] | | | DRUG [...]
--- OUTSIDE RECORDS SUMMARY | ~2023-06-04 | XMS | Continuity of Care Document ---
Demographics + + + | Address | [address] [address] | | | [place] [address] | + + + | Preferred Language | Unknown | + + + | Marital Status | | + + + | Protestant Affiliation | Unknown | + + + | Race | White | + + + | Ethnic Group | Not or | + + + Author + + + | Author | [facility] | + + + | Organization | [facility] | + + + | Address | [address] [facility] | | | [place] [address] | + + + | Phone | | + + + Care Team Providers + + + + | Care Data Architect Name | Role | Phone | + [...] | 2023-02-25 00:00 | FORMOTEROL FUMARATE | [facility] | + + + + | 2023-04-07 00:00 | FORMOTEROL FUMARATE | [facility] | + + + + | 2023-05-25 00:00 | FORMOTEROL FUMARATE | [facility] | + + + + | 2022-10-07 00:00 | LACTOBACILLUS ACIDOPHILUS | [facility] | + + + + | 2023-02-25 00:00 | LACTOBACILLUS ACIDOPHILUS | [facility] | + + + + | 2023-04-07 00:00 | LACTOBACILLUS ACIDOPHILUS | [facility] | + + + + | 2023-05-25 00:00 | LACTOBACILLUS ACIDOPHILUS | [facility] | + + + + | 2023-02-25 00:00 | IPRATROPIUM/ALBUTEROL | [facility] | | | SULFATE | | + + + + | 2023-04-07 00:00 | IPRATROPIUM/ALBUTEROL | [facility] | | | SULFATE | | + + + + | 2023-05-25 00:00 | IPRATROPIUM/ALBUTEROL | [facility] | | | SULFATE | | + + + + | 2021-09-30 00:00 | BENZONATATE | [facility] | + + + + | 2021-09-30 00:00 | BENZONATATE | [facility] | + + + + | 2021-09-30 00:00 | BENZONATATE | [facility] | + + + + | 2022-10-07 00:00 | MAGNESIUM OXIDE | [facility] | + + + + | 2023-02-25 00:00 | MAGNESIUM OXIDE | [facility] | + + + + | 2023-04-07 00:00 | MAGNESIUM OXIDE | [facility] | + + + + | 2023-05-25 00:00 | MAGNESIUM OXIDE | [facility] | + + + + | 2022-10-07 00:00 | Ascorbic Acid | [facility] | + + + + | 2023-02-25 00:00 | Ascorbic Acid | [facility] | + + + + | 2023-04-07 00:00 | Ascorbic Acid | [facility] | + + + + | 2023-05-25 00:00 | Ascorbic Acid | [facility] | + + + + | 2022-10-07 00:00 | PAROXETINE HCL | [facility] | + + + + | 2023-02-25 00:00 | PAROXETINE HCL | [facility] | + + + + | 2023-04-07 00:00 | PAROXETINE HCL | [facility] | + + + + | 2023-05-25 00:00 | PAROXETINE HCL | [facility] | + + + + | 2021-09-30 00:00 | AZITHROMYCIN | [facility] | + + + + | 2021-09-30 00:00 | AZITHROMYCIN | [facility] | + + + + | 2021-09-30 00:00 | AZITHROMYCIN | [facility] | + + + + | 2022-10-07 00:00 | Mepolizumab | [facility] | + + + + | 2023-02-25 00:00 | Mepolizumab | [facility] | + + + + | 2023-04-07 00:00 | Mepolizumab | [facility] | + + + + | 2023-05-25 00:00 | Mepolizumab | [facility] | + + + + | 2023-02-25 00:00 | Potassium Citrate | [facility] | + + + + | 2023-04-07 00:00 | Potassium Citrate | [facility] | + + + + | 2023-05-25 00:00 | Potassium Citrate | [facility] | + + + + | 2022-10-07 00:00 | CLOPIDOGREL BISULFATE | [facility] | + + + + | 2023-02-25 00:00 | CLOPIDOGREL BISULFATE | [facility] | + + + + | 2023-04-07 00:00 | CLOPIDOGREL BISULFATE | [facility] | + + + + | 2023-05-25 00:00 | CLOPIDOGREL BISULFATE | [facility] | + + + + | 2021-09-30 00:00 | predniSONE | [facility] | + + + + | 2021-09-30 00:00 | predniSONE | [facility] | + + + + | 2021-09-30 00:00 | predniSONE | [facility] | + + + + | 2022-10-07 00:00 | LISINOPRIL | [facility] | + + + + | 2023-02-25 00:00 | LISINOPRIL | [facility] | + + + + | 2023-04-07 00:00 | LISINOPRIL | [facility] | + + + + | 2023-05-25 00:00 | LISINOPRIL | [facility] | + + + + | 2022-10-07 00:00 | Ezetimibe | [facility] | + + + + | 2023-04-07 00:00 | Ezetimibe | [facility] | + + + + | 2023-05-25 00:00 | Ezetimibe | [facility] | + + + + | 2020-09-07 00:00 | BUDESONIDE | [facility] | + + + + | 2020-09-07 00:00 | BUDESONIDE | [facility] | + + + + | 2020-09-07 00:00 | BUDESONIDE | [facility] | + + + + | 2023-04-07 00:00 | BUDESONIDE | [facility] | + + + + | 2023-02-25 00:00 | Cholecalciferol (Vitamin | [facility] | | | D3) | | + + + + | 2023-04-07 00:00 | Cholecalciferol (Vitamin | [facility] | | | D3) | | + + + + | 2023-05-25 00:00 | Cholecalciferol (Vitamin | [facility] | | | D3) | | + + + + | 2023-05-25 00:00 | AMOXICILLIN/POTASSIUM CLAV | [facility] | | | | | + + + + | 2022-10-07 00:00 | ALBUTEROL SULFATE | [facility] | + + + + | 2023-02-25 00:00 | OXYBUTYNIN CHLORIDE | [facility] | + + + + | 2023-02-25 00:00 | BUSPIRONE HCL | [facility] | + + + + | 2023-05-25 00:00 | BUSPIRONE HCL | [facility] | + + + + Problems + + + + | date | description | facility | + + + + | 2020-07-31 00:00 | Asthma with acute | [facility] | | | exacerbation | | + + + + | 2020-07-31 00:00 | Asthma with acute | [facility] | | | exacerbation | | + + + + | 2020-07-31 00:00 | Asthma with acute | [facility] | | | exacerbation | | + + + + | 2021-10-08 00:00 | Injury of head | [facility] | + + + + | 2021-10-08 00:00 | Injury of head | [facility] | + + + + | 2021-10-08 00:00 | Injury of head | [facility] | + + + + | 2021-10-08 00:00 | Fall | [facility] | + + + + | 2021-10-08 00:00 | Fall | [facility] | + + + + | 2021-10-08 00:00 | Fall | [facility] | + + + + | 2021-11-25 00:00 | Bronchiolitis due to | [facility] | | | respiratory syncytial virus | | | | (RSV) | | + + + + | 2021-11-25 00:00 | Bronchiolitis due to | [facility] | | | respiratory syncytial virus | | | | (RSV) | | + + + + | 2021-11-25 00:00 | Bronchiolitis due to | [facility] | | | respiratory syncytial virus | | | | (RSV) | | + + + + | 2021-11-25 00:00 | Reactive airway disease | [facility] | | | with wheezing | | + + + + | 2021-11-25 00:00 | Reactive airway disease | [facility] | | | with wheezing | | + + + + | 2021-11-25 00:00 | Reactive airway disease | [facility] | | | with wheezing | | + + + + | 2021-11-25 00:00 | Acute respiratory failure | [facility] | | | with hypercapnia | | + + + + | 2021-11-25 00:00 | Acute respiratory failure | [facility] | | | with hypercapnia | | + + + + | 2021-11-25 00:00 | Acute respiratory failure | [facility] | | | with hypercapnia | | + + + + | 2022-10-07 00:00 | Otitis externa of left ear | [facility] | | | | | + + + + | 2022-10-07 00:00 | Otitis externa of left ear | [facility] | | | | | + + + + | 2022-10-07 00:00 | Otitis externa of left ear | [facility] | | | | | + + [...] + + + | 2022-10-07 15:02 | FLOUR TESTER (CURRENT) USE OF | [facility] | | | ANTITHROMBOTICS/ANTIPLA | | + + + + | 2022-10-07 15:02 | OTHER FLOUR TESTER (CURRENT) | [facility] | | | DRUG [...] + + | 2023-02-25 08:00 | OTHER FLOUR TESTER (CURRENT) | [facility] | | | DRUG THERAPY | | + + + + | 2023-03-28 13:55 | SEVERE PERSISTENT ASTHMA, | [facility] | | | UNCOMPLICATED | | + + + + | 2023-04-02 00:00 | Exacerbation of asthma | [facility] | + + + + | 2023-04-04 [...] + + | 2023-04-04 12:40 | OTHER HALF-WAY (CURRENT) | [facility] | | | DRUG [...] + | 2023-05-25 00:00 | Diverticulitis | [facility] | + + + + | 2023-05-25 00:00 | Cyst of ovary | [facility] | + + + + | 2023-05-25 [...] + + | 2023-05-25 07:39 | OTHER HALF-WAY (CURRENT) | [facility] | | | DRUG [...]
[~2023-06-04 15:55] MED LIST changes: +AMOX TR-K CLV1 EAC1 PO; +LEVALBUTEROL TA15 GM
[2023-06-04 17:08] LABS: BILIRUBIN, URINE NEGATIVE (negative); BLOOD/HGB, URINE TRACE-L (Negative); KETONE, URINE NEGATIVE (Negative); LEUK ESTERASE, URINE NEGATIVE (negative); NITRITE, URINE NEGATIVE (negative); PH, URINE 5.5 (5-7)
[2023-06-04 17:14] LABS: BACTERIA, URINE RARE /hpf (negative); CASTS, URINE NONE SEEN \\lpf; COLLECTION TYPE, URINE CLEAN CATCH; CRYSTALS, URINE NONE SEEN (0-1+); EPITHELIAL CELLS, URINE SQUAMOUS 1+ /lpf (0-1+); REFLEX CULTURE, URINE No (No)
[2023-06-04 18:33] LABS: BASOPHILS 0.3 % (0-2); EOSINOPHILS 0.1 % (0-6); HEMATOCRIT 39.6 % (35.0-50.0); HEMOGLOBIN 12.9 g/dL (12.0-18.0); LYMPHOCYTES 5.7 % (24-44); MCH 29.5 (27-36); MCHC 32.7 g/dl (30-36); MCV 90.1 fl (81-99); MONOCYTES 5.7 % (0-12); NEUTROPHILS 88.2 % (39-80); PLATELET COUNT 227 K/uL (140-440)
[2023-06-04 18:44] LABS: ALBUMIN 3.4 g/dL (3.4-5.0); ALBUMIN/GLOBULIN RATIO 1.03 (1.1-2.4); ANION GAP 10.8 (7-21); BILIRUBIN, TOTAL 0.4 ng/dL (0.2-1.0); BUN/CREATININE RATIO 18.68 (6.0-28.6); CALCIUM 8.8 mg/dL (8.5-10.1); CREATININE, SERUM 0.91 mg/dL (0.55-1.02); POTASSIUM 3.8 mmol/L (3.5-5.1); PROTEIN, TOTAL 6.7 g/dL (6.4-8.2)
[2023-06-04 19:59] LABS: INFLUENZA B NAA NEGATIVE (NEGATIVE); RESPIRATORY SYNCYTIAL VIR NAA NEGATIVE (NEGATIVE)
[2023-06-05] VITALS (7 sets, daily range): BP systolic 105–137; BP diastolic 45–65
--- NOTE | 2023-06-05 02:58 | NUR ---
0032 PT ARRIVED ON UNIT VIA STRETCHER, PT EXPRESSED NEED TO USE BSC, SBA TO BSC FOR VERY SMALL LIQUID BM, THEN SBA TO BED, ADMISSION COMPLETED, PT ORIENTED TO ROOM/CALL LIGHT, RT TO ROOM TO SET UP CPAP, 2 PIV IN RUE SL, VSS, CALL LIGHT IN REACH. 0200 PT CALLS OUT FROM ROOM NEEDS TO USE BSC URGENTLY, HAS MEDIUM LIQUID BM IN BRIEF AND BSC, THIS RN ASSISTS PT CLEAN UP AND GET BACK TO BED. PLACED BACK ON CPAP AND CONTINUOUS MONITORING, CALL LIGHT IN REACH 0230 PT USES CALL LIGHT, NEEDS TO USE BSC, GETS BM ON BED LINEN, IN BRIEF AND IN BSC, THIS RN CLEANS BED, PT AND GETS NEW GOWN, PT BACK TO BED ON CPAP AND CONTINUOUS MONITORING, CALL LIGHT IN REACH.
[2023-06-05 05:37] LABS: BASOPHILS 0.5 % (0-2); HEMATOCRIT 37.2 % (35.0-50.0); LYMPHOCYTES 3.3 % (24-44); MCH 29.2 (27-36); MCHC 32.2 g/dl (30-36); MCV 90.7 fl (81-99); MONOCYTES 6.2 % (0-12); PLATELET COUNT 217 K/uL (140-440); RDW 14.1 (10.5-15.0)
[2023-06-05 05:49] LABS: ANION GAP 10.3 (7-21); BUN/CREATININE RATIO 21.15 (6.0-28.6); CALCIUM 8.1 mg/dL (8.5-10.1); CREATININE, SERUM 1.04 mg/dL (0.55-1.02); POTASSIUM 3.3 mmol/L (3.5-5.1)
--- NOTE | 2023-06-05 06:58 | NUR ---
PT A&OX4, FLORIAN, T-MAX 99.1, SBA, DIZZINESS WITH SITTING/STANDING FOR LONG PERIODS OF TIME, NSR, S1S2, BUE PULSE +2, BLE PULSES +2, NO EDEMA, LS CLEAR TO AUSCULTATION, CPAP OVERNIGHT, 2L NC WHILE AWAKE, PT C/O STOMACH PAIN. NAUSEA, & DIARRHEA, PT HAS 5 LIQUID STOOLS OVERNIGHT, SAMPLE SENT TO LAB FOR CDIFF TESTING, PT HAS URINARY INCONTINENCE C/O DRIBBLING ALL THE TIME, SKIN IS INTACT, SOME REDNESS OVER YUKO AREA BUT REMAINS BLANCHABLE. 2 PIVS FLUSH WELL. PT IS CALL LIGHT APPORRIATE. POTASSIUM WAS REPLACED, MEDICATED FOR N/V PER EMAR
--- NOTE | 2023-06-05 07:19 | NUR ---
REPORT GIVEN TO DAY SHIFT
--- NOTE | 2023-06-05 07:30 | NUR ---
REPORT RECIEVED FROM FLOORMAN RN. PATIENT RESTING IN BED AT THIS TIME. PER REPORT PATIENT ADMITTED OVERNIGHT WITH SYNCOPAL LIKE EPISODES AND ABD PAIN. PATIENT WAS NOT ON PRECAUTIONS OVERNIGHT. PLACED PATIENT ON CONTACT-ENTERIC PRECAUTIONS THIS AM FOR PENDING C-DIFF SAMPLE. PATIENT CALLS APPROPRIATELY. CALL LIGHT IN REACH.
[2023-06-05] MEDS ORDERED: HYDROCORTISON-A10 ML OTIC (09:07)
[2023-06-05] MEDS ORDERED: EZETIMIBE10 MG PO (09:07)
--- NOTE | 2023-06-05 09:11 | NUR ---
MD IN TO SEE PATIENT. PER MD ADD PROBIOTIC, DECREASED STEROIDS TO BID, AND RESTART HOME MEDICATIONS. PT ORDER PLACED TO ENCOURAGE ACTIVITY AND AMBULATION TO BASELINE. PATIENTS DAUGHTER CALLED AND WAS UPDATED ON PLAN OF CARE THIS AM. PATIENT SPOKE WITH DAUGHTER AFTER. PATIENTS DAUGHTER CALLED BACK WORRIED ABOUT WHAT SHE SAID. APOLONIA CALDERON SPOKE WITH DAUGHTER AT THAT TIME AND UPDATED HER OF EVENTS THAT OCCURED IN THE ED. WILL NOTIFY MD OF PATIENTS DAUGHTER REQUESTING AN UPDATE FROM HIM. PATIENT BREATH SOUNDS CLEAR. PATIENT REPORTS SOB WITH ACTIVITY WHICH IS BASELINE FOR HER. PATIENT REPORTS COPD AND SHE HAS HAD MORE AND MORE DIFICULTY AT HOME GETTING AROUND D/T HER BREATHING. WILL UPDATE CASE MANAGEMENT AND SEE IF PATIENT NEEDS ANYTHING TO HELP AT HOME. PATIENTS BOWEL TONES ACTIVE. C-DIFF TEST PENDING. PATIENT SITTING AT EDGE OF BED EATING BREAKFAST. PATIENT DENIES FEVER/CHILLS BUT AFTER RECIEVING DOPSE OF TYLENOL FOR PAIN THIS AM SHE STARTED TO SWEAT AND FEEL HOT. WILL MONITOR PATIENT FOR S/S OF FEVER. CALL LIGHT IN REACH. CHARLEY GUERRA IN TO GIVE PATIENT BED BATH AND GET PATIENT UP AND MOVING PER MDS ORDERS.
--- NOTE | 2023-06-05 09:37 | NUR ---
BEDBATH GIVEN, PATIENT ASSISTING. PATIENT TOLERATED WELL. LINEN CHANGED, PATIENT BACK TO BED, CALL LIGHT AND PERSONAL ITEMS IN EASY REACH
--- NOTE | 2023-06-05 10:00 | NUR ---
Spoke with Jaqueline. She states she cont. to live alone. Has a ramp, walker, cane, and nebulizer. She drives. Daughter assists her, but Jaqueline states she shops, cooks, and cleans on her own. She loves to bake and bakes for everyone. Pt has returned frequently. She tells me this time she is considering moving into independent care or residential care. I let her know about [facility] intermediate and [facility]. She asks if I could check for availability. She denies other needs to go home. Her daughter will help her if needed. Plans on dc to home when cleared medically.
[2023-06-05] MEDS ORDERED: LEVALBUTEROL TA15 GM INH (11:13)
[2023-06-05] MEDS ORDERED: POTASSIUM GLUCO90 MG PO (11:13)
--- NOTE | 2023-06-05 11:14 | NUR ---
MED REC COMPLETE
--- NOTE | 2023-06-05 11:30 | NUR ---
PT LYING IN BED. GREETED ME PLEASANTLY. STATED WAS FEELING BETTER AND EXPRESSED SATISFACTION WITH CARE. CONSENTED TO PRAYER. PRAYED FOR ONGOING HEALING AND ABIDING PEACE. LEFT GUIDEPOST AND CONTACT CARD.
--- NOTE | 2023-06-05 11:56 | NUR ---
PATIENT UP TO BSC WITH SBA FOR LIQUID BM. VITALS CHARTED. PATIENT SITTING AT SIDE OF BED FOR LUNCH AT THIS TIME. CALL LIGHT AND PERSONAL PHONE IN EASY REACH
--- NOTE | 2023-06-05 12:00 | NUR ---
RT IN TO DO PATIENTS NEBS. PATIENT SITTING UP IN BED AT THIS TIME. LUNCH AT THE BEDSIDE.
--- NOTE | 2023-06-05 12:28 | NUR ---
Called Felicity at [facility]. She states pt would qualify with the amount she makes from . Payment is 30% of income as it is low income for seniors. Her rent would be $460. There is a waiting list. [facility] has a studio apartment open. They are independent living, but provide meals. Starting rate is $2600.
--- NOTE | 2023-06-05 12:45 | NUR ---
Gave Jaqueline the list of names and phone numbers for placement. She states she needs to sell her manufactured home. Let her know to get her name on the list for these places as they both have waiting lists at time.
--- NOTE | 2023-06-05 13:21 | NUR ---
Update from Alexandra. She states she worked with pt and pt would like to go to a SNF. She does not feels pt can go home alone. Will discuss with as pt is admitted as a OBS. Spoke with Jaqueline. She states she keeps returning and she never is a strong as before. She would like a SNF in [facility]. I will speak with Dr. Slaughter and contact [facility] for room availability.
--- NOTE | 2023-06-05 14:00 | NUR ---
PATIENT SITTING UP IN BED. PATIENT WILL BE TRANSFERED TO [facility] ROOM 115.
--- NOTE | 2023-06-05 14:07 | NUR ---
Texted Dr. Slaughter and updated 129 would like to go to a SNF. Asked if he feels she will qualify for an 3 night IP stay.
--- NOTE | 2023-06-05 15:00 | NUR ---
THIS RN AND CHARLEY RN TRANSFERED PATIENT TO [facility] ROOM 115 VIA BED. PATIENT UPDATE ON PLAN OF CARE. ALL BELONGIGNS SENT WITH PATIENT. PATIENT AGREEABEL TO PLAN OF CARE. THIS RN CONFIRMED WITH MD AVILA THAT MD DOES NOT WANT PATIENT ON TELE. PATIENT BLADDER SCANNED WITH ONLY 40MLS UINRE IN BLADDER. PATIENT HAS BEEN UP URINATING AND DIFFICULT TO DIFERENTITATE URINE FROM STOOL.
--- NOTE | 2023-06-05 15:13 | NUR ---
IN TO ROUND ON PT. PT UP IN BED. ASSESSMENT COMPLETE. LUNG SOUNDS CLEAR IN RUL AND FABI. DIMINISHED IN RLL AND LLL. SOME CRACKLES IN RLL AND LLL. BOWLE TONES ACTIVE. ABD TENDER WITH PALPATION. PT REPORTING PAIN 8/10 IN ABD. PRN TYLENOL ADMINISTERED, SEE MAR. IV IN RIGHT FOREARM REMOVED IV INFILTRATED, PT REPORTING PAIN WHEN ATTEMPTING TO FLUSH. IV CATHETER INTACT, SEE VASCULAR ACCESS. PT REQUESTING MENU, AND WATER. WATER AND MENU PROVIDED. PT DENIES ANY OTHER NEEDS AT THIS TIME. CALL LIGHT IN REACH.
--- NOTE | 2023-06-05 15:17 | NUR ---
Chart faxed to D[facility] at [facility] requesting placement in 3 days.
--- NOTE | 2023-06-05 15:58 | EKG ---
[facility] [address] [place] [address] Signed Sinus rhythm with fusion complexes Otherwise normal ECG When compared with ECG of 02-APR-2023 09:40, fusion complexes are now present Confirmed by KIMBERLY AVILA MD ([id number]) on 06/05/2023 3:58:23 PM Electronically Signed By: KIMBERLY AVILA 06/05/23 1558 PATIENT NAME: CASPER GEORGE Electrocardiogram DATE OF : 42 PHYSICIAN: KIMBERLY AVILA REPORT #: [id number] REPORT IS CONFIDENTIAL AND NOT TO BE RELEASED WITHOUT AUTHORIZATION
--- NOTE | 2023-06-05 16:00 | EKG ---
[facility] [address] [place] [address] Signed Sinus rhythm with 1st degree AV block with occasional premature ventricular complexes and premature atrial complexes Otherwise normal ECG When compared with ECG of 04-JUN-2023 21:18, (Unconfirmed) fusion complexes are no longer present premature ventricular complexes are now present premature atrial complexes are now present NC interval has increased Confirmed by KIMBERLY AVILA MD ([id number]) on 06/05/2023 3:59:38 PM Electronically Signed By: KIMBERLY AVILA 06/05/23 1600 PATIENT NAME: CASPER GEORGE Electrocardiogram DATE OF : 42 PHYSICIAN: KIMBERLY AVILA REPORT #: [id number] REPORT IS CONFIDENTIAL AND NOT TO BE RELEASED WITHOUT AUTHORIZATION
--- NOTE | 2023-06-05 16:15 | NUR ---
PHARMACY NOTIFIED MULTIPLE TIMES OF MD REQUESTING PATIENTS HOME MED REQ SO PATIENT CAN START ON PATIENTS MEDS. AWAITING ORDERS FROM PHARMACY. [facility]. NO FEVER NOTED TODAY.
--- NOTE | 2023-06-05 17:26 | NUR ---
IN TO ADMINISTER MEDICATION, SEE MAR. DISPOSABLE DINNER TRAY BROUGHT INTO ROOM. PT REPORTING PAIN IN ABD 06/05. PT ALSO REPORTING "FEELING HOT." TEMPERATURE TAKEN 98.9. OFFERED PT COOL CLOTH, PT DENIES. FAN TURNED ON ON PTs TRAY. PT DENIES ANY OTHER NEEDS AT THIS TIME. CALL LIGHT IN REACH.
--- NOTE | 2023-06-05 19:20 | NUR ---
Patient resting in bed, no complaints, bedside rreported given by Mindy.
--- NOTE | 2023-06-05 21:10 | NUR ---
Did a set of vitals. While in with patient assisted her with using the commode. Nothing else needed at this time.
--- NOTE | 2023-06-05 22:05 | NUR ---
Patient feeling better but not feeling 100% yet, VSS, Abd soft, tender, actvie BT's, denies nausea, Minimal BM's, remains on enteric precautions until stool results back. Patient with CPAP on and lights out. Patient with no complaints.
--- NOTE | 2023-06-06 01:21 | NUR ---
ROUNDED ON pt PER REQUEST OF PRIMARY RN, pt RESTING IN BED WITH EYES CLOSED. ON CPAP, RR EVEN AND UNLABORED. NO DISTRESS NOTED, CALL LIGHT IN REACH.
[2023-06-06 02:07] VITALS: BP 123/48
--- NOTE | 2023-06-06 04:02 | NUR ---
Assisted pt to commode, pt had large loose BM. Brief changed output documented.
[2023-06-06 05:27] VITALS: BP 112/47
--- NOTE | 2023-06-06 06:05 | NUR ---
[facility], CPAP on, VSS, Assisted up to BSC and continues to have frequent bowels. Remains on enteric precautions, Has needed no pain medication or nausea medication this shift.
--- NOTE | 2023-06-06 07:15 | NUR ---
REPORT RECEIVED FROM YUMIKO BLUNT. PT RESTING IN BED RR EVEN AND UNLABORED. EYES CLOSED. NO NEEDS IDENTIFIED AT THIS TIME. CALL LIGHT IN REACH.
[2023-06-06 08:03] LABS: C. DIFF TOXIN B GENE TCDB,PCR Detected (())
--- NOTE | 2023-06-06 09:19 | NUR ---
IN TO ADMINISTER MEDICATIONS, SEE MAR. PT TAKES PO MEDICATIONS WITH NO ISSUES. PHYSICAL THERAPY IN ROOM. ASSESSMENT COMPLETE. LUNG SOUNDS CLEAR. BOWEL TONES ACTIVE. PT DENIES TENDERNESS WITH ABD PALPATION. PT REPORTS "PRESSURE IN ABD, BUT NO PAIN." PT CONTINUES TO WORK WITH PHYSICAL THERAPY. BSC EMPTIED PT HAD BM PRIOR TO THIS RN ENTERING ROOM. PT DENIES ANY OTHER NEEDS FROM THIS RN AT THIS TIME. CALL LIGHT IN REACH. PHYSICAL THERAPY IN ROOM.
--- NOTE | 2023-06-06 09:37 | NUR ---
PER AM MEETING PATIENT CDIFF POSITIVE AND WILL REQUIRE ABX TREATMENT PRIOR TO DC TO SNF. WILL UPDATE [facility].
--- NOTE | 2023-06-06 10:17 | NUR ---
PHYSICAL THERAPY IN ROOM. DID NOT ENTER. SAID SILENT PRAYER FOR ONGOING HEALING.
[2023-06-06 10:18] VITALS: BP 103/47
--- NOTE | 2023-06-06 11:05 | NUR ---
IN TO ADMINISTER MEDICATION, SEE MAR. PT TAKES PO MEDICATION WITH NO ISSUES. PT DENIES ANY OTHER NEEDS AT THIS TIME. CALL LIGHT IN REACH.
--- NOTE | 2023-06-06 13:45 | NUR ---
IN TO ADMINISTER MEDICATION, SEE MAR. PT TAKES PO MEDICATION WITH NO ISSUES. TRAY REMOVED. PT WATCHING TV. WATER PROVIDED. PT DENIES ANY NEEDS AT THIS TIME. CALL LIGHT IN REACH.
[2023-06-06 14:41] VITALS: BP 119/58
--- NOTE | 2023-06-06 16:28 | NUR ---
THIS RN CALLED PTs DAUGHTER ANA BACK TO GIVE UPDATE. UPDATE GIVEN. QUESTIONS ANSWERED.
[2023-06-06 17:20] VITALS: BP 113/52
--- NOTE | 2023-06-06 17:27 | NUR ---
IN TO ADMINISTER MEDICATION, SEE MAR. PT TAKES PO MEDICATIONS WITH NO ISSUES. ASSESSMENT COMPLETE. BOWEL TONES ACTIVE. PT DENIES TENDERNESS WITH ABD PALPATION. PT DENIES ANY PAIN AT THIS TIME. WATER PROVIDED. PT DENIES ANY OTHER NEEDS AT THIS TIME. CALL LIGHT IN REACH.
[2023-06-06 20:13] VITALS: BP 128/58
--- NOTE | 2023-06-06 21:10 | NUR ---
Jaqueline is resting in bed, no complaints, VSS, She states she is feeling better but not back to her norm yet. Continues to have diarrhea and Jaqueline feels the frequency is decreasing. Abd tender, no pain med or nausea medication needed. Remains in Enteric precautions for positive C- diff. report provided by Mindy.
--- NOTE | 2023-06-06 23:09 | NUR ---
Jaqueline assisted up to BSC, having some urgency, voided and had diarrhea stool. Back to bed, CPAP on, call light within reach, lights out. patient without complaints.
--- NOTE | 2023-06-07 00:44 | NUR ---
Jaqueline is resting with eyes closed, lights out, Tolerating CPAP, No complaints, call light in reach.
--- NOTE | 2023-06-07 02:49 | NUR ---
Jaqueline is resting with eyes closed, lights out, Tolerating CPAP, No complaints, call light in reach. Rounding complete.
[2023-06-07 05:26] LABS: HEMATOCRIT 42.2 % (35.0-50.0); HEMOGLOBIN 13.4 g/dL (12.0-18.0); LYMPHOCYTES 4.2 % (24-44); MCH 28.9 (27-36); MCHC 31.8 g/dl (30-36); MCV 90.9 fl (81-99); MONOCYTES 11.2 % (0-12); NEUTROPHILS 84.6 % (39-80); PLATELET COUNT 235 K/uL (140-440); RBC 4.64 M/ul (4.3-5.7); RDW 14.4 (10.5-15.0)
[2023-06-07 05:29] VITALS: BP 118/51
[2023-06-07 05:33] LABS: ANION GAP 16.4 (7-21); BUN/CREATININE RATIO 32.5 (6.0-28.6); CREATININE, SERUM 1.2 mg/dL (0.55-1.02); POTASSIUM 4.4 mmol/L (3.5-5.1)
--- NOTE | 2023-06-07 06:08 | NUR ---
Jaqueline has slept well tonight, using CPAP, VSS, Up several times to BSC with stool and urine mix. Jaqueline feels like diarrhea is slowing down some. Denies nausea, abdomin fusing machine tender. active BT's, She is up ad tyrel to commode and tolerating well with steady gait. Jaqueline states she is not feeling as weak as she did.
--- NOTE | 2023-06-07 07:24 | NUR ---
RECEIVED REPORT FROM PUBLIC HEALTH PROGRAM MANAGER RN. PT IS IN BED AWAKE WATCHING TV. NO NEEDS VOICED BY THE PATIENT AT THE MOMENT. CALL LIGHT WITHIN REACH.
[2023-06-07 08:23] VITALS: BP 132/52
--- NOTE | 2023-06-07 10:39 | NUR ---
IN PT ROOM TO GIVE BREATHING TREATMENTS. EMPTIED COMMODE. PT STATES SHE FEELS MORE COMFORTABLE AFTER RECEIVING HER BREATHING TTREATMENTS. CALL LIGHT WITHIN REACH AND COMMODE AT BEDSIDE FOR PATIENT CONVIENENCE. CALL LIGHT WITHIN REACH AND NO FURTHER NEEDS VOICED.
[2023-06-07 12:44] VITALS: BP 126/68
--- NOTE | 2023-06-07 12:45 | NUR ---
ASSISTED PT IN THE SHOWER. SHOWER IS DONE AND PTS TEETH WERE BRUSHED. LINENES WERE CHANGED. IV FLUIDS STARTED. OBTAINED VITAL SIGNS AND ADMINISTERED ORAL VANCO. PT SITTING IN CHAIR EATING LUNCH. CALL LIGHT WITHIN REACH. NO FURTHER NEEDS VOICED.
--- NOTE | 2023-06-07 15:15 | NUR ---
ROUNDED ON PT. PT SITTING IN CHAIR. NO FURTHER NEEDS VOICED. CALL LIGHT WITHIN REACH.
[2023-06-07 17:40] VITALS: BP 133/53
--- NOTE | 2023-06-07 19:30 | NUR ---
Pt glenys, pt states her BMs have been slowing down. desats with activity.
[2023-06-07 20:56] VITALS: BP 114/66
--- NOTE | 2023-06-07 21:10 | NUR ---
Pt assesed. PM meds given. Nebs given. Pt has no conplains at this time.
--- NOTE | 2023-06-07 22:10 | NUR ---
PT UTILIZES CALL LIGHT, REQUESTS PRN FOR NASUEA. ADMINISTERED. SEE EMAR. PT DENIES FURTHER NEEDS. CALL LIGHT IN REACH.
--- NOTE | 2023-06-08 02:26 | NUR ---
Called dr. hammonds as zofram dint help with nausea. got order for one time compazine.
[2023-06-08 05:04] VITALS: BP 112/43
--- NOTE | 2023-06-08 06:05 | NUR ---
Pt was restless overnight. Started to sleep at 5am. PT own cpap may not be working as pt desats to 70s with cpap, switched to NC 2L and educated pt on keeping sats above 90 while sleeping.
--- NOTE | 2023-06-08 06:41 | NUR ---
Pt had a loose BM offered to change bed sheets, said she is too tired and will get it changed later.
[2023-06-08 06:48] LABS: ANION GAP 13.7 (7-21); BUN/CREATININE RATIO 30.39 (6.0-28.6); CALCIUM 8.6 mg/dL (8.5-10.1); CREATININE, SERUM 1.02 mg/dL (0.55-1.02); POTASSIUM 3.7 mmol/L (3.5-5.1)
--- NOTE | 2023-06-08 07:12 | NUR ---
RECIEVED BEDSIDE REPORT FROM YUMIKO EDDY. PT IS SLEEPING AFTER A LONG NIGHT OF SLEEPLESSNESS. NOC RN REPORTED THAT SHE HAD BEEN UP TO BSC FREQUENTLY FOR SOFT BMs. OVERNIGHT PT REPORTED NAUSEA, ZOFRAN AND COMPAZINE GIVEN. ON NASAL CANULA, HOME CPAP DOES NOT SEEM TO BE WORKING APROPRIATELY.
--- NOTE | 2023-06-08 08:21 | NUR ---
PT REPORTS THAT SHE DID NOT SLEEP WELL AND SHE DOES NOT FEEL GOOD. UP TO [facility], VOIDED 200ML. STATED THAT SHE "SOMETIMES" FEELS HER BMs ARE FIRMING UP, BUT "SOMETIMES" SHE DOES NOT. NO BM THIS AM. SHE DECLINED TO EAT BREAKFAST, BUT TRAY WAS LEFT IN ROOM IN CASE SHE WANTED TO PICK AT IT. WHILE MOVING TO THE BS AND BACK, HEARTRATE JUMPED TO 120 AND O2 WAS AT 92% ON 2L. PT RECOVERED FAIRLY QUICKLY ONCE SHE RETURNED TO BED. AM MEDS GIVEN.
[2023-06-08 10:22] VITALS: BP 93/42
--- NOTE | 2023-06-08 10:29 | NUR ---
PATIENT IN BED, REFUSED BREAKFAST. VITALS AND I/O'S COMPLETED. PATIENT HAD COMPLAINTS OF DIZZYNESS WHILE GETTING UP TO [facility]. NURSE NOTIFIED, CALL LIGHT WITHIN REACH.
[2023-06-08 14:56] VITALS: BP 120/50
[2023-06-08 18:55] VITALS: BP 116/49
--- NOTE | 2023-06-08 19:10 | NUR ---
REPORT RECEIVED FROM OFFGOING YUMIKO DOWLING. PT RESTING IN BED WITH O2 IN PLACE. CALL LIGHT IN REACH.
[2023-06-08 21:36] VITALS: BP 124/51
--- NOTE | 2023-06-08 22:02 | NUR ---
PT ASSESSMENT COMPLETE. PT DENIES PAIN, STATES /. REPORTS FEELING GENERAL MALAISE, LOW GRADE TEMP NOTED WITH VS. PRN ADMINISTERED. SEE EMAR. PT DENIES NAUSEA OR SOB. CPAP IN PLACE WITH O2 BLED IN AT 2LPM. PT WITH OCCASIONAL COUGH NOTED DURING ASSESSMENT. EDUCATION PROVIDED ON IS USE, PT DEMONSTRATES APPROPRIATE USE. BT'S ACTIVE. PT DENIES ABD TENDERNESS. CONTINUES TO HAVE FREQUENT LOOSE STOOL. SHE REPORTS THAT SHE THINKS IT HAS SLOWED SOME. IV FLUSHED WITH 10 ML NS. WNL. VS OBTAINED. ICE WATER REFILLED AND ROOM TIDIED. PT DENIES FURTHER NEEDS AT THIS TIME. CALL LIGHT IN REACH.
--- NOTE | 2023-06-09 00:09 | NUR ---
PT ROUNDING. PT RESTING IN BED WITH EYES CLOSED. RESPIRATIONS EVEN AND UNLABORED. SAO2 95% ON CPAP WITH 2 L BLED IN. DOES NOT WAKE WHILE PROOF TESTER AT DOORWAY. CALL LIGHT IN REACH.
--- NOTE | 2023-06-09 02:15 | NUR ---
PT RESTING IN BED WITH EYES CLOSED. RESPIRATIONS EVEN AND UNLABORED. PT APPEARS TO BE SLEEPING. CALL LIGHT IN REACH.
--- NOTE | 2023-06-09 04:18 | NUR ---
PT ROUNDING. PT RESTING IN BED WITH EYES CLOSED. CPAP IN PLACE APPROPRIATELY. SA02 93%. PT DOES NOT WAKE WHILE LODGING FACILITIES MANAGER AT DOORWAY. CALL LIGHTIN REACH.
[2023-06-09 05:09] VITALS: BP 117/50
--- NOTE | 2023-06-09 07:31 | NUR ---
recieved report from nightshift nurse. pt is currently resting. call light within reach
--- NOTE | 2023-06-09 08:30 | NUR ---
PT IS CURRENTLY IN BED RESTING WITH NASAL CANNULA A 2L 96 SPO2 PT HAS SOME PAIN IN HER ABDOMEN. JUST FINISHED HER BREAKFAST AND IS WATCHING TV. CALL LIGHT WITHIH REACH
[2023-06-09 08:47] VITALS: BP 116/49
--- NOTE | 2023-06-09 09:46 | NUR ---
CHART UPDATED FAXED TO DINA AT [facility]. CONTACTED DINA VIA TEXT, HE STATES THEY ARE SHORT NURING STAFF TODAY AND CURRENTLY THE DNS IS WORKING THE FLOOR. HE IS UNSURE IF THE [employer] WILL BE ABLE TO REVIEW ANY INTAKE CHARTS TODAY. DR. DYER UPDATED.
--- NOTE | 2023-06-09 10:14 | NUR ---
SPOKE WITH PATIENT REGARDING TRANSFER TO [facility] FOR FURTHER PT, PT IS AGREEABLE. ADVISED PATIENT THAT SHE WILL LIKELY DISCHARGE FROM HOSPITAL TOMORROW OR FRIDAY. NO FURTHER QUESTIONS OR CONCERNS FROM THE PATIENT AT THIS TIME.
--- NOTE | 2023-06-09 10:24 | NUR ---
pt aske dfor bed rearranged while she brushes her teeth and use the commode
--- NOTE | 2023-06-09 11:55 | NUR ---
pt is currently sitting up in chair. pt was taken off of nasal cannula due to room air stats at 94%. call light within reach
[2023-06-09 14:40] VITALS: BP 126/46
--- NOTE | 2023-06-09 15:42 | NUR ---
pt is currently laying in bed resting with eyes close. no cares requested at this time. call light within reach
--- NOTE | 2023-06-09 19:46 | NUR ---
RECEIVED REPORT FROM DAY SHIFT RN. PATIENT IS RESTING IN BED. PATIENT GIVEN CPAP. PATIENT DENIES ANY FURTHER NEEDS. CALL LIGHT IN REACH.
[2023-06-09 21:05] VITALS: BP 124/61
--- NOTE | 2023-06-09 21:10 | NUR ---
PATIENT ASSESMENT COMPLETED. VITALS TAKEN AND RECORDED. PM MEDS GIVEN PER ORDER. PATIENT REPORTS A HEADACHE, PRN MEDICATION GIVEN PER ORDER. PATIENTS IV LEAKING AND NO LONGER PATENT. NEW IV PLACED. PATIENTS INTAKE AND OUTPUT RECORDED. PATIENTHAS CPOX IN PLACE. PATIENT DENIES ANY FURTHER NEEDS. CALL LIGHT IN REACH.
--- NOTE | 2023-06-09 22:49 | NUR ---
PATIENT IS RESTING IN BED ON RIGHT SIDE WEARING HOME CPAP. CALL LIGHT IN REACH. IV INFUSING PER ORDER.
--- NOTE | 2023-06-10 00:32 | NUR ---
PATIENT IS RESTING IN BED ON RIGHT SIDE WITH EYES CLOSED WEARING HOME CPAP. PATIENTS CPOX READINGS ARE WNL. CALL LIGHT IN REACH. IV INFUSING PER ORDER.
--- NOTE | 2023-06-10 02:11 | NUR ---
PATIENT IS RESTING IN BED ON BACK WITH EYES CLOSED WEARING HOME CPAP. CPOX READINGS ARE WNL. IV INFUSING PER ORDER. CALL LIGHT IN REACH.
--- NOTE | 2023-06-10 02:42 | NUR ---
PATIENT REPORTS HEADACHE AND A STOMACH ACHE. PATIENT GIVEN PRN TYLENOL. PATIENTS BSC EMPTIED. PATIENT IS RESTING IN BED ON LEFT SIDE. IV INFUSING PER ORDER. PATIENT DENIES ANY FURTHER NEEDS. CALL LIGHT IN REACH.K FRESH WATER PROVIDED.
--- NOTE | 2023-06-10 04:04 | NUR ---
PATIENT IS RESTING IN BED WITH EYES CLOSED, CPOX READINGS ARE WNL. IV INFUSING PER ORDER. CALL LIGHT INREACH.
[2023-06-10 05:39] VITALS: BP 110/54
--- NOTE | 2023-06-10 06:14 | NUR ---
VITALS TAKEN AND RECORDED. INTAKE AND OUTPUT RECORDED. PATIENT REPORTS INPROVEMENT IN HEADACHE. FRESH ICE WATER PROVIDED. PATIEN DENIES ANY FURTHER NEEDS. CALL LIGHT IN REACH. IV INFUSING PER ORDER.
--- NOTE | 2023-06-10 07:15 | NUR ---
RECEIVED SHIFT REPORT FROM LIVESTOCK SHOWMAN NURSE. PT IS CURRENTLY SITTING UP ON EDGE OF BED. NO CARES ARE NEEDED AT THIS TIME. CALL LIGHT WITHIN REACH
[2023-06-10 08:18] VITALS: BP 127/52
--- NOTE | 2023-06-10 08:37 | NUR ---
PT IS CURRENTLTY LAYING IN BED WATCHING TV. VITALS ARE STABLE. MEDS WERE TAKEN. NO ABNORMAL ISSUES. PT STILL SAYS HWER STOMACH ACHE IS AT 4. REQUESTS A SHOWER THIS MORNING. NO OTHER RERQUESTS At THIS TIME. CALL LIGHT WITHIN REACH
--- NOTE | 2023-06-10 09:46 | NUR ---
CURTAINS CLOSED AND LIGHTS OFF. DID NOT DISTURB. SAID SILENT PRAYER FOR HEALING.
--- NOTE | 2023-06-10 10:36 | NUR ---
PATIENT IS IN THE SHOWER. NAPKIN BAND WRAPPER WILL RETURN LATER TO DISCUSS PLACEMRNT IN [place].
--- NOTE | 2023-06-10 11:22 | NUR ---
PT WAS GIVEN A SHOWER. PT CURRENTLY IS RESTING IN BED WATCHING TV AND STATING SHES FEELING BETTER. CALL LIGHT WITHIN REACH
--- NOTE | 2023-06-10 14:08 | NUR ---
CHECKED ON PT AND ASKED IF THERE WAS ANYTHING SHE NEEDED. SHE ONLY ASKED FOR WATER. AFTER IT WAS GIVEN PT STATED SHE WAS FINE AND TOLD ME SHED BE LEAVING TOMORROW AT 1PM. CALL LIGHT WITHIN REACH
[2023-06-10 14:15] VITALS: BP 122/53
--- NOTE | 2023-06-10 14:55 | NUR ---
SPOKE TO PATIENT ABOUT THE DISCHARGE PLAN. PATIENT WILL BE TRANSFERED TO [facility] 06-11-23 AT 14:30.
[2023-06-10 17:37] VITALS: BP 141/64
--- NOTE | 2023-06-10 19:28 | NUR ---
RECEIVED REPORT FROM DAY SHIFT RN. PATIENT IS RESTING IN BED WEARING CPAP. PATIENT DENIES ANY NEEDS. ALL LIGHT IN REACH.
--- NOTE | 2023-06-10 21:03 | NUR ---
CALL LIGHT ANSWERED. GARBAGE CAN PROVIDED TO pt. UP ON BSC INDEPENDENTLY. CORDS UNTANGLED. pt WITH INCONTINENCE IN ATTENDS. CHANGING ATTENDS INDEPENDENTLY. DENIES NEEDS.
[2023-06-10 21:28] VITALS: BP 165/64
--- NOTE | 2023-06-10 21:31 | NUR ---
PATIENT ASSESMENT COMPLETED. PATIENT HAS NOTED FINE CRACKLES IN BILAT LUNG BASES. PATIENT REPORTS SOB. RT CALLED AND IN ROOM TO ADMIN NEB. PATIENT IS ON RA. CPOX READINGS ARE WNL. IS X3 COMPLETED. PATIENTS VITALS TAKEN AND RECORDED. INTAKE AND OUTPUT RECORDED. PATIENT DENIES ANY PAIN. PM MEDS GIVEN PER ORDER. IV INFUSING PER ORDER. PATIENTS BACK SCRATCHED AND LOTION APPLIED. PATIENT DENIES ANY FURTHER NEEDS. CALL LIGHT IN REACH.
--- NOTE | 2023-06-10 22:08 | NUR ---
PATIENT IS RESTING IN BED WITH EYES CLOSED, CPOX READINGS ARE WNL. IV INFUSING PER ORDER. PATIENT IS WEARING HOME CPAP. CALL LIGHT IN REACH.
--- NOTE | 2023-06-11 00:18 | NUR ---
PATIENT IS RESTING IN BED WITH EYES CLOSED, CPOX READINGS ARE WNL. CALL LIGHT IN REACH. IV INFUSING PER ORDER. PATIENT WEARING HOME CPAP.
[2023-06-11 05:54] VITALS: BP 135/57
--- NOTE | 2023-06-11 06:01 | NUR ---
PATIENT IS RESTING IN BED WEARING HOME CPAP. PATIENTS VITALS TAKEN AND RECORDED. PATIENTS INTAKE AND OUTPUT RECORDED. IV INFUSING PER ORDER. FRESH ICE WATER PROVIDED. PATIENT DENIES ANY NEEDS. CALL LIGHT IN REACH.
--- NOTE | 2023-06-11 07:15 | NUR ---
recieved report from nightshift nurse. Patient currently resting. spoke with and stopped her NS CONTINOUS FLUID DUE TO UPCOMING DISCHARGE. CALL LIGHT WITHIN REACH
[2023-06-11] MEDS ORDERED: VANCOMYCIN HCL125 MG PO (07:47)
[2023-06-11 09:33] VITALS: BP 138/62
--- NOTE | 2023-06-11 09:33 | NUR ---
PT ON BSC. PT TO CALL WHEN COMPLETE. PT CALLED. I PEDIATRICS HOSPITALIST IN ROOM. BSC EMPTIED AND PLACED BACK AT BEDSIDE. VITALS AND IS AND OS COMPLETE. NO NEEDS. CALL LIGHT WITHIN REACH
--- NOTE | 2023-06-11 09:57 | NUR ---
SPOKE TO PATIENT ABOUT THE DISCHARGE PLAN. PATIENT WILL BE TRANSFERD TO [facility] AT 2:30 VIA WHEELCHAIR VAN. ORDERS SENT TO [facility] FOR REVIEW.
--- NOTE | 2023-06-11 10:27 | NUR ---
ASKED PT IF THERE WAS ANYTHING TAT SHE NEEDED. PT STATES THAT SHE IS FINE AND PT IS AWARE OF HER DISCHARGED AND TRANSFER TO [place] AT 1430 TODAY. NO OTHER CARES NEEDED AT THIS TIME. CALL LIGHT WITHIN REACH.
--- NOTE | 2023-06-11 12:09 | NUR ---
pt is currently with respiratory getting a treatment. no cares needed at this time. call light within reach
[2023-06-11 13:00] VITALS: BP 137/55
[2023-06-11 13:43] VITALS: BP 146/66
--- NOTE | 2023-06-12 15:38 | NUR ---
pt called req info on how to get script of vanco. pt stated she checked out [facility] at [facility] today and [facility] would not given script. case management advised and pt notified that she needs to contact pcp office to get script fro antibitotics for cdiff
== END 2023-06-11 14:20 | DRG 871 ==
LOC: ED 15:55 → CCU 15:56 → ED 22:34 → CCU 22:47 → MS 06-05 15:00 → CCU 06-05 15:00 → MS 06-05 15:10
PROVIDERS: Emergency Medicine; ADMIT Internal Medicine; ATTEND Family Medicine
PROC: 3E03329 Introduction of Other Anti-infective into Peripheral Vein, Percutaneous Approach (ICD-10-PCS; principal; 2023-06-06)
PROC: 5A09357 Assistance with Respiratory Ventilation, Less than 24 Consecutive Hours, Continuous Positive Airway Pressure (ICD-10-PCS; 2023-06-08)
DX: A41.9 Sepsis, unspecified organism (principal); I46.9 Cardiac arrest, cause unspecified; A04.72 Enterocolitis due to Clostridium difficile, not specified as recurrent; E27.40 Unspecified adrenocortical insufficiency; R00.1 Bradycardia, unspecified; N83.201 Unspecified ovarian cyst, right side; K57.30 Diverticulosis of large intestine without perforation or abscess without bleeding; I48.91 Unspecified atrial fibrillation; Z66 Do not resuscitate; I50.9 Heart failure, unspecified; J44.9 Chronic obstructive pulmonary disease, unspecified; R53.1 Weakness; F41.9 Anxiety disorder, unspecified; E66.9 Obesity, unspecified; Z20.822 Contact with and (suspected) exposure to COVID-19; F32.A Depression, unspecified; Z96.612 Presence of left artificial shoulder joint; Z96.611 Presence of right artificial shoulder joint; Z86.16 Personal history of COVID-19; Z86.79 Personal history of other diseases of the circulatory system; Z86.73 Personal history of transient ischemic attack (TIA), and cerebral infarction without residual deficits; Z87.891 Personal history of nicotine dependence; Z79.2 Long term (current) use of antibiotics; Z90.49 Acquired absence of other specified parts of digestive tract; Z90.710 Acquired absence of both cervix and uterus; Z98.890 Other specified postprocedural states; Z79.51 Long term (current) use of inhaled steroids; Z79.899 Other long term (current) drug therapy; Z88.8 Allergy status to other drugs, medicaments and biological substances; Z91.048 Other nonmedicinal substance allergy status; Z79.890 Hormone replacement therapy; Z79.01 Long term (current) use of anticoagulants; Z68.37 Body mass index [BMI] 37.0-37.9, adult
CPT/HCPCS: 36415; 51701; 71045; 74177; 80048; 80053; 81001; 83605; 83690; 83735; 83880; 84484; 85025; 87040; 87493; 87502; 93005; 93010; 94640; 94660; 96375; 96376; 97530; 99285-25; A9270; G0378; J0461; J0780; J1170; J2405; J2920; J7030; Q9967; U0002

== ENCOUNTER 2023-11-20 19:43 | Emergency (ER) | payer MEDICARE ==
[~2023-11-20] VITALS: Ht 165.1 cm; Wt 105.4 kg
[~2023-11-20 19:43] MED LIST changes: +HYDROCORTISON-A10 ML OTIC; +LEVALBUTEROL TA15 GM INH; +POTASSIUM GLUCO90 MG PO; +VANCOMYCIN HCL125 MG PO
[2023-11-20] MEDS ORDERED: TRAMADOL HCL50 MG PO (20:51)
[2023-11-20 21:45] VITALS: BP 163/78
== END 2023-11-20 21:30 | disposition home or self-care (01) ==
LOC: ED 19:43
DX: M25.562 Pain in left knee (principal); J45.909 Unspecified asthma, uncomplicated; Z86.16 Personal history of COVID-19; Z86.73 Personal history of transient ischemic attack (TIA), and cerebral infarction without residual deficits; Z87.891 Personal history of nicotine dependence; Z91.048 Other nonmedicinal substance allergy status; Z79.02 Long term (current) use of antithrombotics/antiplatelets; Z79.899 Other long term (current) drug therapy; Z88.6 Allergy status to analgesic agent
CPT/HCPCS: 73560; 94640; 99284-25; A9270

== ENCOUNTER 2024-06-14 10:51 | Emergency (ER) | payer MEDICARE ==
[~2024-06-14] VITALS: Ht 165.1 cm; Wt 105.4 kg
[~2024-06-14 10:51] MED LIST changes: +FORMOTEROL20 MCG/2 M; +HYDROCODON-ACE1 EA11 PO; +LIDODERM1 EACH TOP; +PULMICORT0.5 MG/2 M INH; +TRAMADOL HCL50 MG PO; +VENTOLIN HFA18 GM
[2024-06-14] MEDS ORDERED: ondansetron HCL 4 MG/2 ML VIAL IV ONE (11:30)
[2024-06-14 11:57] LABS: BASOPHILS 0.8 % (0-2); EOSINOPHILS 1.3 % (0-6); HEMATOCRIT 40.8 % (35.0-50.0); HEMOGLOBIN 13.6 g/dL (12.0-18.0); LYMPHOCYTES 13.8 % (24-44); MCH 30.5 (27-36); MCHC 33.4 g/dl (30-36); MCV 91.2 fl (81-99); MONOCYTES 7.8 % (0-12); NEUTROPHILS 76.3 % (39-80); PLATELET COUNT 335 K/uL (140-440); RBC 4.48 M/ul (4.3-5.7); RDW 13.5 (10.5-15.0)
[2024-06-14] MEDS ORDERED: HYDROmorphone HCL 1 MG/ML SYR IV PRN (12:00)
[2024-06-14 12:05] LABS: ALBUMIN 3.4 g/dL (3.4-5.0); ALBUMIN/GLOBULIN RATIO 0.81 (1.1-2.4); ANION GAP 13.5 (7-21); BILIRUBIN, TOTAL 0.4 ng/dL (0.2-1.0); BUN/CREATININE RATIO 17.39 (6.0-28.6); CALCIUM 9.6 mg/dL (8.5-10.1); CREATININE, SERUM 0.92 mg/dL (0.55-1.02); POTASSIUM 4.5 mmol/L (3.5-5.1); PROTEIN, TOTAL 7.6 g/dL (6.4-8.2)
[2024-06-14 15:55] VITALS: BP 140/74
== END 2024-06-14 15:41 | disposition home or self-care (01) ==
LOC: ED 10:51
PROVIDERS: Emergency Medicine
DX: R10.30 Lower abdominal pain, unspecified (principal); J45.909 Unspecified asthma, uncomplicated; I50.9 Heart failure, unspecified; Z86.73 Personal history of transient ischemic attack (TIA), and cerebral infarction without residual deficits; Z87.891 Personal history of nicotine dependence; Z91.09 Other allergy status, other than to drugs and biological substances; Z88.6 Allergy status to analgesic agent; Z79.899 Other long term (current) drug therapy; Z79.52 Long term (current) use of systemic steroids
CPT/HCPCS: 36415; 74177; 80053; 83690; 85025; 96375; 96376; 99284-25; J1170; J2405; Q9967

== ENCOUNTER 2024-10-12 08:41 | Inpatient (IN) | payer MEDICARE ==
[~2024-10-12] VITALS: Ht 165.1 cm; Wt 0.3 kg
[~2024-10-12 08:41] MED LIST changes: -VENTOLIN HFA18 GM; +VENTOLIN HFA18 GM INH
[2024-10-12 08:58] LABS: BASOPHILS 0.8 % (0-2); HEMOGLOBIN 12.6 g/dL (12.0-18.0); MCHC 33.3 g/dl (30-36); MCV 90.3 fl (81-99); MONOCYTES 7.4 % (0-12); NEUTROPHILS 72.8 % (39-80); PLATELET COUNT 244 K/uL (140-440); RBC 4.21 M/ul (4.3-5.7)
[2024-10-12] MEDS ORDERED: IBLOOD GLUCOSE TEST STRIP 1 EA TEST XX ONE (09:00)
[2024-10-12 09:10] LABS: INR 0.96 (0.80-1.30); PROTIME 12.4 Sec (11.2-14.2)
[2024-10-12 09:12] LABS: PARTIAL THROMBOPLASTIN TIME 25.4 Sec (22.9-41.3)
[2024-10-12 09:17] LABS: ALBUMIN 3.3 g/dL (3.4-5.0); ALBUMIN/GLOBULIN RATIO 1.03 (1.1-2.4); ANION GAP 11.5 (7-21); BILIRUBIN, TOTAL 0.4 ng/dL (0.2-1.0); BUN/CREATININE RATIO 28.39 (6.0-28.6); CREATININE, SERUM 0.81 mg/dL (0.55-1.02); POTASSIUM 4.5 mmol/L (3.5-5.1); PROTEIN, TOTAL 6.5 g/dL (6.4-8.2)
[2024-10-12] MEDS ORDERED: diphenhydrAMINE HCL 50 MG/ML VIAL IV ONE (09:45)
[2024-10-12] MEDS ORDERED: ASPIRIN 325 MG TAB PO ONE (09:45)
[2024-10-12 10:10] LABS: BILIRUBIN, URINE NEGATIVE (negative); BLOOD/HGB, URINE NEGATIVE (Negative); KETONE, URINE NEGATIVE (Negative); LEUK ESTERASE, URINE NEGATIVE (negative); NITRITE, URINE NEGATIVE (negative)
[2024-10-12] MEDS ORDERED: SODIUM CHLORIDE 0.9% 1,000 ML IV PRN (10:15)
[2024-10-12 10:35] LABS: AMPHETAMINES, URINE NEGATIVE (NEGATIVE); BARBITURATES, URINE NEGATIVE (NEGATIVE); BENZODIAZEPINE, URINE NEGATIVE (NEGATIVE); BUPRENORPHINE, URINE NEGATIVE (NEGATIVE); CANNABINOID, URINE NEGATIVE (NEGATIVE); COCAINE, URINE NEGATIVE (NEGATIVE); ECSTASY, URINE NEGATIVE (NEGATIVE); FENTANYL, URINE NEGATIVE (NEGATIVE); METHADONE, URINE NEGATIVE (NEGATIVE); OPIATES, URINE NEGATIVE (NEGATIVE); OXYCODONE, URINE NEGATIVE (NEGATIVE); PHENCYCLIDINE, URINE NEGATIVE (NEGATIVE)
[2024-10-12] MEDS ORDERED: ACETAMINOPHEN 325 MG TAB PO PRN (12:00)
[2024-10-12] MEDS ORDERED: ondansetron HCL 4 MG/2 ML VIAL IV PRN (12:00)
[2024-10-12] MEDS ORDERED: LACTATED RINGER'S 1,000 ML IV SCH (12:00)
[2024-10-12] MEDS ORDERED: ENOXAPARIN SODIUM 40 MG/0.4 ML SYR SUB-Q SCH (12:00)
[2024-10-12] MEDS ORDERED: PHARMACY RENAL DOSE ADJUSTMENT 1 DOSE MISC PO SCH (12:00)
[2024-10-12 12:50] VITALS: BP 174/68
--- NOTE | 2024-10-12 13:00 | NUR ---
PT ARRIVES TO MED-SURG VIA GURNEY, PT IS AWAKE AND A&O X4. VSS. VERBAL REPORT RECEIVED FROM YUMIKO BOOTH. PT TO MED-SURG BED, ORIENTED TO ROOM, CALL LIGHT AND PHONE. TELE # [address] LR INFUSION STARTED AT 100 ML/HR. IV SITE CEAN AND INTACT, NO REDNESS OR SWELLING NOTED. LUNCH ARRIVES, PT EATS, TOLERATES THIS WELL.
[2024-10-12] MEDS ORDERED: ALBUTEROL/IPRATROPIUM 3 ML NEB INH SCH (13:30)
--- NOTE | 2024-10-12 13:30 | NUR ---
DR. LOPEZ IN PT ROOM FOR EVAULATION. EXAM POSITIVE, SUSPECTED MENINGITIS. DR. LOPEZ REQUESTS LP. PT RECEIVES BREATHING TREATMENT WITH RT. POC EXPLAINED TO PT BY DR. LOPEZ.
--- NOTE | 2024-10-12 13:55 | NUR ---
PT LEAVES MED-SURG VIA WHEELCHAIR, ESCORTED TO IMAGING BY IMAGING STAFF FOR PROCEDURE.
--- NOTE | 2024-10-12 14:11 | NUR ---
PT'S DAUGHTER ANA, NOTIFIED VIA PHONE OF PT'S ADMIT TO MED-SURG, PER PT REQUEST.
[2024-10-12] MEDS ORDERED: CEFTRIAXONE/SODIUM CHLORIDE 2 GM/100 ML PIGGYBACK IV SCH (14:20)
[2024-10-12] MEDS ORDERED: VANCOMYCIN PER PHARMACY PROTOCOL IV SCH (14:20)
[2024-10-12] MEDS ORDERED: MECLIZINE HCL 12.5 MG TAB PO PRN (14:30)
--- NOTE | 2024-10-12 14:30 | NUR ---
PT RETURNED FROM IMAGING VIA GURNEY. LR CONTINUOUS INFUSION RESUMED. PT DID NOT RECEIVED LP DUE TO TAKING PLAVIX.
--- NOTE | 2024-10-12 15:26 | NUR ---
FAMILY BROUGHT IN PT'S CELL PHONE, GLASSES AND CPAP. RT NOTIFIED OF CPAP.
[2024-10-12] MEDS ORDERED: FUROSEMIDE 20 MG/2 ML VIAL IV SCH (15:27)
--- NOTE | 2024-10-12 15:44 | NUR ---
ALERT AND ORIENTED IN BED. STATES SHE LIVES IN MANUFACTURED HOME [place]. HAS 4 STEPS TO GET IN, BUT DOES HAVE A RAMP. SHE HAS A DISABLE DAUGHTER WHO LIVES WITH HER AND HER DISABLE DAUGHTER HAS A CAREGIVER COME IN TO CARE FOR HER. PATIENT HAS A WALKER AND A SHOWER CHAIR. STATES SHE DOES NOT USE WALKER, BUT HAS BEEN INSTRUCTED SHE NEEDS TO START USING IT. HER PCP HAS CHANGED TO DR. MERIDA. PATIENT DRIVES. DENIES FINANCIAL CONCERNS. SHE IS ABLE TO PAY UTILITIES AND OBTAIN FOOD AND MEDICATIONS WITHOUT ISSUES. STATES SHE HAS NO KNOWN NEEDS AT THIS TIME.
[2024-10-12] MEDS ORDERED: VANCOMYCIN HCL 2,500 MG in DEXTROSE 5% 500 ML IV ONE (16:00)
--- NOTE | 2024-10-12 16:29 | NUR ---
PATIENT IN BED AT THIS TIME. INVESTMENT PROFESSIONAL ASSISTED PATIENT TO BATHROOM AND THEN BACK TO BED. CALL LIGHT WITHIN REACH, NO FURTHER NEEDS AT THIS TIME.
[2024-10-12] MEDS ORDERED: VITAMIN C500 M1 PO (16:54)
[2024-10-12] MEDS ORDERED: PULMICORT0.5 MG/2 M INH (16:54)
--- NOTE | 2024-10-12 16:55 | NUR ---
MED REC COMPLETE
[2024-10-12] MEDS ORDERED: AMPICILLIN SOD 2 GM in SODIUM CHLORIDE 0.9% 100 ML IV SCH (18:00)
[2024-10-12 18:07] VITALS: BP 141/54
[2024-10-12 18:16] VITALS: BP 141/54
--- NOTE | 2024-10-12 19:00 | NUR ---
PATIENT IN BED AT THIS TIME. FURRIER SHOP SUPERVISOR CHARTED VITALS AND I&O'S. CALL LIGHT WITHIN REACH, NO FURTHER NEEDS AT THIS TIME.
--- NOTE | 2024-10-12 19:56 | NUR ---
REPORT RECEIVED FROM DAY SHIFT RN. PT LYING IN BED ALERT AND ORIENTED WITH HOME CPAP IN PLACE. SCDHEDULED MEDS ADMIN PER EMAR. PT DENIES DIZZINESS AT REST. NO NEEDS AT THIS TIME. WHITE BOARD UPDATED. CALL LIGHT IN REACH.
[2024-10-12] MEDS ORDERED: DEXAMETHASONE SOD PHOS 10 MG/ML VIAL IV SCH (20:00)
[2024-10-12] MEDS ORDERED: BUDESONIDE 0.5 MG/2 ML VIAL INH SCH (20:00)
[2024-10-12 21:00] VITALS: BP 148/74
[2024-10-12] MEDS ORDERED: MELATONIN 3 MG TAB PO PRN (21:00)
[2024-10-12] MEDS ORDERED: ACYCLOVIR SOD 1,000 MG in DEXTROSE 5% 250 ML IV SCH (22:00)
--- NOTE | 2024-10-12 22:15 | NUR ---
EVENING ASSESSMENT COMPLETE. SCHEDULED MEDS ADMIN PER EMAR. PT DENIES DIZZINESS AT REST. UP TO BSC WITH SBA AND FWW TO VOID. PT DOES REPORT SLIGHT DIZZINESS UPON SITTING. REPORTS SX MUCH IMPROVED SINCE ADMISSION. GAIT STEADY. PT BACK TO BED, JESUS MANUEL WELL. DENIES PAIN OR NAUSEA. HOME CPAP AT BEDSIDE. PT DENIES QUESTIONS OR CONCERNS. CALL LIGHT IN REACH.
--- NOTE | 2024-10-12 23:54 | NUR ---
PT RESTING IN BED WITH EYES CLOSED. CPAP IN PLACE. RESPIRATIONS EVEN. CALL LIGHT IN REACH.
[2024-10-13] VITALS (10 sets, daily range): BP systolic 119–146; BP diastolic 54–72
--- NOTE | 2024-10-13 02:25 | NUR ---
PT RESTING WITH EYES CLOSED. AWAKENS EASILY. VS AND I&O OBTAINED. NO C/O PAIN OR DIZZINESS. MEDS ADMIN PER EMAR. PT WITH HOME CPAP IN PLACE. NO NEEDS AT THIS TIME.
--- NOTE | 2024-10-13 03:47 | NUR ---
PT RESTING IN BED WITH EYES CLOSED. RESPIRATIONS EVEN. CALL LIGHT IN REACH.
[2024-10-13 06:06] LABS: BASOPHILS 0.2 % (0-2); HEMATOCRIT 39.8 % (35.0-50.0); HEMOGLOBIN 13.1 g/dL (12.0-18.0); LYMPHOCYTES 6.8 % (24-44); MCH 29.8 (27-36); MCHC 32.8 g/dl (30-36); MCV 90.8 fl (81-99); MONOCYTES 0.5 % (0-12); NEUTROPHILS 92.5 % (39-80); PLATELET COUNT 248 K/uL (140-440); RBC 4.39 M/ul (4.3-5.7); RDW 15.2 (10.5-15.0)
[2024-10-13 06:17] LABS: ANION GAP 15.4 (7-21); BUN/CREATININE RATIO 20.83 (6.0-28.6); CALCIUM 9.3 mg/dL (8.5-10.1); CREATININE, SERUM 0.96 mg/dL (0.55-1.02); MAGNESIUM 1.9 mg/dL (1.8-2.4); POTASSIUM 4.4 mmol/L (3.5-5.1)
--- NOTE | 2024-10-13 06:50 | NUR ---
SCHEDULED MEDS ADMIN PER EMAR. SBA TO BSC TO VOID. PT REPORTS SLIGHT DIZZINESS WITH ACTIVITY. ASSISTED TO RECLINER. PT REPORTS BASE OF HEAD PAIN 06/05. PRN FOR PAIN ADMIN PER EMAR. NO FURTHER NEEDS. CALL LIGHT IN REACH.
--- NOTE | 2024-10-13 07:17 | NUR ---
VERBAL REPORT RECEIVED FROM YUMIKO FORD. PT AWAKE IN RECLINER, RECEIVES BREATHING TREATMENT AT THIS TIME.
--- NOTE | 2024-10-13 07:43 | NUR ---
GAVIN RECEIEVED FOR REPORT OF NAUSEA.
[2024-10-13] MEDS ORDERED: GLUCAGON,HUMAN RECOMBINANT 1 MG/ML VIAL SUB-Q PRN (07:45)
[2024-10-13] MEDS ORDERED: DEXTROSE 50% 50 ML SYR IV PRN ×2 (07:45)
[2024-10-13] MEDS ORDERED: DEXTROSE 5% 1,000 ML IV PRN (07:45)
[2024-10-13] MEDS ORDERED: IBLOOD GLUCOSE TEST STRIP 1 EA TEST XX PRN (07:45)
--- NOTE | 2024-10-13 07:45 | NUR ---
UPON ADMINISTRATION OF ZOFRAN, NOTED IV INFUSING NS TKO. LINE FLUSHED WITH 5 CC OF NS, ZOFRAN PUSHED OVER 2 MINUTES FOLLOWED BY 5 CC NS FLUSH. UPON STARTING 5 CC POST-ZOFRAN IVP NOTED PERCIPITATION FORMING IN LINE. FLUSH STOPPED, IV STOPPED, INFUSATED PULLED BACK. LUBING REMOVED. NO PERCIPITATED APPEARED TO REACH THE PT. INFUSATE/PERCIPITATE PULLED BACK INTO SYRINGE WAS SENT TO PHARMACY TO INVESTIGATE. NOTED AMPICILIN AND ROCEPHIN PREVIOUSLY INFUSED EMPTY SECONDARIES CONNECTED BUT NOT INFUSING. ALL TUBING AND INFUSATE REMOVED AND DIPOSED.
[2024-10-13] MEDS ORDERED: IBLOOD GLUCOSE TEST STRIP 1 EA TEST VI SCH (08:00)
[2024-10-13] MEDS ORDERED: INSULIN LISPRO 100 UNIT/ML ML SUB-Q SCH (08:00)
--- NOTE | 2024-10-13 08:08 | NUR ---
AFTER RECEIVING ZOFRAN AND LAYING DOWN IN BED, PT REPORTS NAUSEA IS, "BETTER."
[2024-10-13] MEDS ORDERED: busPIRone HCL 5 MG TAB PO SCH (09:00)
[2024-10-13] MEDS ORDERED: PARoxetine HCL 20 MG TAB PO SCH (09:00)
[2024-10-13] MEDS ORDERED: HEParin SOD (PORCINE) 5,000 UNIT/ML SDV SUB-Q SCH (09:00)
--- NOTE | 2024-10-13 09:03 | NUR ---
PATIENT UP TO BSC AND BACK TO BED, 1PA FWW. VITALS DONE BY RN, I&O'S CHARTED. CALL LIGHT IN REACH. NO FURTHER NEEDS AT THIS TIME.
--- NOTE | 2024-10-13 10:13 | NUR ---
UR CLINICAL REVIEW: 2 MN FOR [facility] INPT CRITERIA FOR ADMISSION MEDICARE INPT 10/12/24 @ 1152 ORDER MATCHES REG NO AUTH REQUIRED PER MEDICARE GUIDELINES DISCHARGE TO HOME WHEN STABLE
--- NOTE | 2024-10-13 10:33 | NUR ---
VISITED DURING SPIRITUAL CARE ROUNDS. PT APPEARED TO BE SLEEPING. DID NOT DISTURB. PROVIDED PRAYER.
[2024-10-13] MEDS ORDERED: VANCOMYCIN HCL 1,750 MG in DEXTROSE 5% 500 ML IV SCH (12:00)
--- NOTE | 2024-10-13 13:00 | NUR ---
Spoke with Jaqueline. She states her disabled daughter has moved back in with her. She states this is good and she enjoys having her. Her asthma is so improved as she is on a medication she gets as an OP every 3 months. She denies needs at this time. Pt plans on dc to home when cleared medically. Denies any needs.
--- NOTE | 2024-10-13 14:04 | NUR ---
PATIENT UP TO BSC AND BACK TO BED, SBA. VITALS AND I&O'S DONE AND CHARTED. CALL LIGHT IN REACH. NO FURTHER NEES AT THIS TIME.
--- NOTE | 2024-10-13 14:04 | EKG ---
[facility] [address] [place] [address] Signed Sinus rhythm with 1st degree AV block with occasional premature ventricular complexes Minimal voltage criteria for LVH, may be normal variant ( Benjy product ) Borderline ECG When compared with ECG of 24-MAY-2024 09:33, premature ventricular complexes are now present Confirmed by Frederic Lopez MD ([id number]) on 10/13/2024 2:04:35 PM Electronically Signed By: FREDERIC LOPEZ DO 10/13/24 1404 PATIENT NAME: CASPER GEORGE Electrocardiogram DATE OF : 42 PHYSICIAN: FREDERIC LOPEZ DO REPORT #: [id number] REPORT IS CONFIDENTIAL AND NOT TO BE RELEASED WITHOUT AUTHORIZATION
--- NOTE | 2024-10-13 14:43 | NUR ---
PT REPORTS, "I FEEL SO MUCH BETTER." REPORTS HER HEADACHE PAIN 4/10 AT THIS TIME. STATES THE LIGHT DOESN'T HURT HER EYES OR HEAD ANYMORE. TURNS LIGHT ON IN ROOM. PT REPORTS SHE ALSO FEELS BETTER WHEN STANDING UP TO USE THE BSC. IV SITE C/D/I, NO REDNESS OR SWELLING NOTED. CALL LIGHT IN REACH, NO REQUESTS AT THIS TIME.
[2024-10-13] MEDS ORDERED: busPIRone HCL 5 MG TAB PO PRN (15:15)
--- NOTE | 2024-10-13 18:31 | NUR ---
AUTO DAMAGE ADJUSTER HELPED PT TO BEDSIDE COMMODE. AUTO DAMAGE ADJUSTER HELPED PT BACK INTO BED. PT LYING IN BED WITH EYES OPEN, TALKING TO AUTO DAMAGE ADJUSTER. PT PERSONAL BELONGINGS AND CALL LIGHT ARE WITHIN REACH. PT STATED NO FURTHER NEEDS AT THIS TIME.
--- NOTE | 2024-10-13 19:33 | NUR ---
REPORT RECEIVED FROM DAY SHIFT RN. PT LYING IN BED RESTING WITH EYES CLOSED. RESPIRATIONS EVEN. CALL LIGHT IN REACH.
--- NOTE | 2024-10-13 20:24 | NUR ---
20G IN RIGHT AC LEAKING WITH FLUSH. DC'D WNL. TIP INTACT. NEW 20G PLACED IN LEFT FOREARM X 1 ATTEMPT. PT JESUS MANUEL WELL. MEDS ADMIN PER EMAR. RT IN ROOM. NO FURTHER NEEDS.
--- NOTE | 2024-10-13 21:33 | NUR ---
EVENING ASSESSMENT COMPLETE. SCHEDULED MEDS ADMIN PER EMAR. PT UP TO BSC WITH MINIMAL SBA AND FWW TO VOID. GAIT STEADY. PT ABLE TO DO OWN YUKO CARE. BACK TO BED. PT DOES REPORT SLIGHT DIZZINESS UPON SITTING AND STANDING. DENIES PAIN OR NAUSEA AT THIS TIME. IV ABX INFUSING PER ORDER. VS AND I&O OBTAINED. NO FURTHER NEEDS. CALL LIGHT IN REACH.
--- NOTE | 2024-10-13 22:46 | NUR ---
PT RESTING IN BED WITH HOME CPAP IN PLACE. SCHEDULED MEDS ADMIN PER EMAR. PT DENIES NEEDS AT THIS TIME.
[2024-10-14] VITALS (8 sets, daily range): BP systolic 126–168; BP diastolic 60–78
--- NOTE | 2024-10-14 02:21 | NUR ---
CALL LIGHT ANSWERED. PT UP TO BSC AND THEN BATHROOM WITH COPIER REPAIR TECHNICIAN IN ATTEMPT TO HAVE BM WITH NO RESULTS. BACK TO BED, JESUS MANUEL WELL. NEW 20G IV PLACED IN RIGHT FOREARM X 1 ATTEMPT. PT REPORTS LFA IV SENSITIVE WITH FLUSH. IV DC'D WNL. TIP INTACT. IV ABX INFUSING PER ORDER. NO FURTHER NEEDS.
--- NOTE | 2024-10-14 04:30 | NUR ---
PT RESTING IN BED WITH EYES CLOSED. RESPIRATIONS EVEN. CALL LIGHT IN REACH.
--- NOTE | 2024-10-14 05:00 | NUR ---
CALL LIGHT ANSWERED. PATIENT UP TO BSC WITH MININAL SBA TO VOID. PATIENT BACK TO BED. VS AND I&Os OBTAINED AND RECORDED. PATIENT REQUESTING BREATHING TREATMENT. RT NOTIFIED. CALL LIGHT WITHIN REACH.
[2024-10-14] MEDS ORDERED: ALBUTEROL SULFATE 0.083% 3 ML VIAL INH PRN (05:15)
--- NOTE | 2024-10-14 06:00 | NUR ---
PT AWAKE IN BED WITH HOME CPAP IN PLACE. SCHEDULED MEDS ADMIN PER EMAR. NO C/O PAIN OR DIZZINESS AT THIS TIME. FRESH WATER PROVIDED. NO FURTHER NEEDS.
[2024-10-14 06:13] LABS: BASOPHILS 0.1 % (0-2); EOSINOPHILS 0.1 % (0-6); HEMATOCRIT 35.7 % (35.0-50.0); HEMOGLOBIN 11.9 g/dL (12.0-18.0); LYMPHOCYTES 5.3 % (24-44); MCH 29.9 (27-36); MCHC 33.5 g/dl (30-36); MCV 89.3 fl (81-99); MONOCYTES 1.7 % (0-12); NEUTROPHILS 92.8 % (39-80); PLATELET COUNT 261 K/uL (140-440)
[2024-10-14 06:24] LABS: ANION GAP 14.2 (7-21); MAGNESIUM 1.9 mg/dL (1.8-2.4); POTASSIUM 4.2 mmol/L (3.5-5.1)
[2024-10-14 06:31] LABS: BUN/CREATININE RATIO 28.42 (6.0-28.6); CREATININE, SERUM 0.95 mg/dL (0.55-1.02)
--- NOTE | 2024-10-14 07:30 | NUR ---
REPORT RECEIVED FROM MACHINE OVERHAULER RN. PATIENT REQUESTING ASSISTANCE TO BSC. RN ASSISTED PATIENT TO BSC WITH 1 PA ASSIST AND FWW. DENIES AND PAIN OR DISCOMFORT DURING TRANSFER. REPORTS FEELING DIZZY WHEN FIRST SITTIN UP IN BED. REPORTS FEELING SLIGHLY "UPSET" TO STOMACH. DENIES ANY NAUSEA AT THIS TIME. IV SITE ASSESSED, AND WNL. PAIENT VOID 300MLS OF CLEAR YELLOW URINE. PATIENT ASSISTED BACK TO BED. NO FURTHER NEEDS AT THIS TIME. CALL LIGHT WITHIN REACH.
--- NOTE | 2024-10-14 08:15 | NUR ---
PATIENT REPORTS RODRIGUEZ IS TOLLERABLE AT THIS TIME AND DOES NOT WISH TO HAVE PRN MEDICATIONS. LUNGS CTA DIM IN BASES. HEART SOUNDS REGUALR, HEART RATE 80'S AT THIS TIME. BOWEL TONES ACTIVE X 4. REPORTS DIZZINESS WHEN STANDING AND POSITION CHANGES OCCUR. AM MEDICATIONS ADMINSTERED. NO FURTHER NEEDS AT THIS TIME. CALL LIGHT WITHIN REACH.
--- NOTE | 2024-10-14 09:25 | NUR ---
IN TO ROUND ON PATIENT. RESTING IN BED. NO NEEDS. CALL LIGHT WITHIN REACH.
--- NOTE | 2024-10-14 10:10 | NUR ---
Spoke with mervat. She states she is not feeling well. Has her rosary and states she is praying for a better day.
--- NOTE | 2024-10-14 10:25 | NUR ---
THIS RN NOTIFIED BY CASE MANAGMENT RN THAT PATIENT WAS CRYING AND C/O SEVERE HEADACHE. PATIENT RATES RODRIGUEZ 06/05. REPORTS DIZZINESS WHEN TRANSFERING TO BSC. REPORTS RODRIGUEZ WORSENED QUICKLY WHEN SHE GOT OOB TO USE THE COMODE. PRN ADMINSTERED. SCHEDULED ABX HUNG. IV SITE WNL. NO FURTHER NEEDS. CALL LIGHT WITHIN REACH.
[2024-10-14] MEDS ORDERED: TRAMADOL HCL 50 MG TAB PO PRN (11:45)
--- NOTE | 2024-10-14 12:25 | NUR ---
BEFORE PATIENT'S LUNCH CAME AND I DID HER BLOOD SUGAR CHECK. PATIENT USED THE BEDSIDE COMMODE I STOOD BY. NOW PATIENT IS EATING HER LUNCH AND LISTENING TO THE TV.
--- NOTE | 2024-10-14 12:45 | NUR ---
PATIENT REPORTS HER HEADACHE HAS IMPROVED. SCHEDULED ABX HUNG. IV SITE REMAINS WNL. DENEIS ANY FURTHER NEEDS. CALL LIGHT WITHIN REACH.
--- NOTE | 2024-10-14 14:19 | NUR ---
PT NOT AVAILABLE FOR VISIT. PROVIDED PRAYER.
--- NOTE | 2024-10-14 14:40 | NUR ---
NEW IV STARTED IN RIGHT AC. PATIENT TOLLERATED WELL. PATIENT ASSISTED TO BSC WITH FWW. REPORTS HEADACHE IS, " THERE BUT NOT MUCH." NO DIZZINESS AT THIS TIME. NOTED BM WHILE ON BSC. PATIENT ASSISTED BACK INTO BED. NO FURTHER NEEDS CALL LIGHT WITHIN REACH.
--- NOTE | 2024-10-14 16:30 | NUR ---
WHILE DOING HOURLY ROUNDS PATIENT REQUESTED TO USE BSC. PATIENT TRANSFERED TO BS WITH 1 PA ASSIST NOTED, INCREASED DIZZINESS DURING THIS TRANSFER. VOID FOR 550. PATIENT BACK IN BED. NO FURTHER NEEDS AT THIS TIME. CALL LIGHT WITHIN REACH.
--- NOTE | 2024-10-14 17:45 | NUR ---
PATIENT RESTING IN BED. VSS. REPORTS HEADACHE REMAINS AT A TOLLERABLE LEVEL. DENIES ANY DIZZINESS AT THIS TIME. SCHEDULED IV ABX STARTED. IV SITES REMAINS WNL. DENIES ANY FURTHER NEEDS. CALL LIGHT WITHIN REACH.
--- NOTE | 2024-10-14 19:10 | NUR ---
shift report received from dayshift rn, pt awake and resting in bed. on ra, rr even and unlabored. iv sites x2 wnl-saline locked. no needs or concerns, call light in reach and board updated.
[2024-10-14] MEDS ORDERED: MELATONIN 3 MG TAB PO SCH (21:00)
--- NOTE | 2024-10-14 21:00 | NUR ---
assessment complete, scheduled meds given-see emar. iv sites x2 wnl, scheduled iv abx infusing as directed. pt denies pain and nausea when asked, a/ox4, can be forgetful/anxious at times, therapeutic communication prn, calm currently. education provided on meds, pt verbalized understanding. rt also in room, scant exp wheezes noted with auscultation. fresh water and sf snack also provided. call light in reach.
--- NOTE | 2024-10-14 22:37 | NUR ---
CALL LIGHT ANSWERED. PT NEEDED TO USE BATHROOM. HAND PACKAGER DONNED PPE AND ASSISTED PT WITH FWW TO BSC. PT VOIDED AND ASSISTED BACK TO BED. OUTPUT MEASURED. PT STATES NO FURTHER NEEDS AT THIS TIME. CALL LIGHT WITHIN REACH.
--- NOTE | 2024-10-14 22:50 | NUR ---
scheduled iv abx infusing as directed, iv sites x2 wnl. pump cleared, no additional needs or concerns verbalized, pt on home cpap. call light in reach.
--- NOTE | 2024-10-14 23:55 | NUR ---
IV ABX COMPLETE, IV SITE WNL AND SALINE LOCKED TO LEFT FOREARM. IV ABX TO RIGHT AC CONTINUES TO INFUSE DIRECTED. CALL LIGHT IN REACH.
[2024-10-15] VITALS (9 sets, daily range): BP systolic 151–190; BP diastolic 70–92
--- NOTE | 2024-10-15 | NUR ---
iv pump alarming, iv site now saline locked to right ac. prn tylenol also given per pt request for reported pain r/t headache. no additional needs, call light in reach.
--- NOTE | 2024-10-15 01:28 | NUR ---
rounded on pt, pt resting in bed, eyes closed. on home cpap. call light in reach and rr remains even and unlabored.
--- NOTE | 2024-10-15 03:00 | NUR ---
assessment complete, no acute changes. pt reprots h/a currently relieved after prn tylenol, denies photo sensitivity or weakness when at rest. pt wearing home cpap. iv sites x2 remains wnl. call light in reach.
--- NOTE | 2024-10-15 04:34 | NUR ---
rounded on pt, pt resting in bed with eyes closed. on ra, rr even and unlabored. no distress noted, home cpap remains in place, call light in reach.
[2024-10-15 05:41] LABS: BASOPHILS 0.1 % (0-2); HEMATOCRIT 36.4 % (35.0-50.0); HEMOGLOBIN 11.9 g/dL (12.0-18.0); LYMPHOCYTES 5.1 % (24-44); MCH 29.7 (27-36); MCHC 32.8 g/dl (30-36); MCV 90.6 fl (81-99); MONOCYTES 1.9 % (0-12); NEUTROPHILS 92.9 % (39-80); PLATELET COUNT 271 K/uL (140-440); RBC 4.01 M/ul (4.3-5.7); RDW 15.1 (10.5-15.0)
[2024-10-15 05:48] LABS: ANION GAP 15.4 (7-21); BUN/CREATININE RATIO 27.47 (6.0-28.6); CALCIUM 8.6 mg/dL (8.5-10.1); CREATININE, SERUM 0.91 mg/dL (0.55-1.02); MAGNESIUM 2.1 mg/dL (1.8-2.4); POTASSIUM 4.4 mmol/L (3.5-5.1)
--- NOTE | 2024-10-15 06:51 | NUR ---
scheduled iv abx infusing as directed, iv sites x2 wnl. no additional needs or concerns verbalized, call light in reach.
--- NOTE | 2024-10-15 07:17 | NUR ---
REPORT RECEIVED FROM MANPOWER DEVELOPMENT MANAGER RN. PATIENT RESTING IN BED. ALL IV LINES AND IV SITES CHECKED WITH MANPOWER DEVELOPMENT MANAGER RN. PATIENT DENIES NEEDS AT THIS TIME. CALL LIGHT WITHINR EACH.
[2024-10-15] MEDS ORDERED: FUROSEMIDE 20 MG/2 ML VIAL IV ONE (07:45)
--- NOTE | 2024-10-15 08:30 | NUR ---
PATIENT ASSISTED TO BSC. NO REPORTS OF DIZZINESS. REPORTS HER HEADACHE IS " ALMOST GONE." AM MEDCATIONS ADMSINTERED. IV SITES REMIAN WNL. LUNGS CTA, BOWEL TONES ACTIVE X 4 QUADRANTS. PATIENT IS ALERT AND ORIENTED X 4. NO NOTED CONFUSSION OR FORGETFULNESS AT THIS TIME. DENIES ANY NAUSEA. BREAKFAST SET UP FOR PATIENT, FRESH WATER GIVEN. NO FURTHER NEEDS AT THIS TIME, CALL LIGHT WITHIN REACH.
--- NOTE | 2024-10-15 09:24 | NUR ---
PT WORKING WITH PATIENT AT THIS TIME.
--- NOTE | 2024-10-15 09:40 | NUR ---
Spoke with Jaqueline. She denies needs. Headache cont. She is in good spirits today.
--- NOTE | 2024-10-15 10:16 | NUR ---
PATIENT ASSISTED TO BEDSIDE COMODE. VOIDING QUANITY SUFFICIENT. PATIENT VSS, BP ELEVATED. MD AWARE. LUNGS CTA, BOWEL TONES ACTIVE X 4 QUADRANTS. PATIENT REPORTS MILD DIZZYNESS WHEN TRANSFERING TO BSC. DENIES ANY VISION CHANGES. REPORTS HEADACHE CONTINUES BUT IT TOLLERABLE AT THIS TIME. IV SITE REMAIN WNL. SCHEDULED IV ABX HUNG. NO NOTED NAUSEA. PATIENT WITH NO FURTHER NEEDS AT THIS TIME. CALL LIGHT WITHIN REACH.
--- NOTE | 2024-10-15 11:24 | NUR ---
VISITED DURING SPIRITUAL CARE ROUNDS. PT APPEARED TO BE SLEEPING. DID NOT DISTURB. PROVIDED PRAYER.
--- NOTE | 2024-10-15 11:50 | NUR ---
PATIENT ASSISTED TO BSC. PATIENT C/O INCREASED RODRIGUEZ WITH MOVEMENT. PUREWICK PLACED TO ASSIST PATIENT WITH HEADACHE DISCOMFORT THAT OCCURS WITH POSITION CHANGES.
[2024-10-15 12:28] LABS: VANCOMYCIN, TROUGH 8.3 ug/mL (5.0-20.0)
[2024-10-15] MEDS ORDERED: VANCOMYCIN HCL 1,000 MG in DEXTROSE 5% 250 ML IV SCH (13:00)
[2024-10-15] MEDS ORDERED: DEXTROSE 5% IV SCH (13:00)
[2024-10-15] MEDS ORDERED: VANCOMYCIN HCL IV SCH (13:00)
--- NOTE | 2024-10-15 14:00 | NUR ---
RN IN ROOM TO ADMINSTER SCHEDULED MEDICATIONS.
--- NOTE | 2024-10-15 15:10 | NUR ---
IN TO ROUND ON PATIENT RESTING IN BED WITH EYES CLOSED. DENIES ANY NEEDS AT THIS TIME. CALL LIGHT WITHIN REACH.
[2024-10-15] MEDS ORDERED: lisinopriL 5 MG TAB PO SCH (15:30)
--- NOTE | 2024-10-15 16:02 | NUR ---
SCHEDULED BP MEDICATION ADMINSTERED. RT IN ROOM WITH PATIENT.
--- NOTE | 2024-10-15 19:04 | NUR ---
SHIFT REPORT RECEIVED FROM JOSEY CALDERON, TRIAL ATTORNEY REPORTS SHE JUST FINISHED PUTTING IN PURE WICK, PT CONTINUES IN ISOLATION, WITHOUT REQUESTS AT THIS TIME.
--- NOTE | 2024-10-15 20:23 | NUR ---
RT AT BEDSIDE, PREPARING TO COMPLETE NEBULIZER TREATMENTS, PT DENIES NEEDS AT THIS TIME, CHEERFUL.
--- NOTE | 2024-10-15 22:30 | NUR ---
ATTEMPTED TO FLUSH L AC, LEAKAGE NOTED, SL D/LAY INTACT, PRESSURE DRESSING TO SITE, REMOVED BY PT A FEW MINUTES LATER, NO FURTHER BLEEDING AT SITE. PT WANTS PURE WICK REMOVED, DUE TO LEAKAGE OF URINE, DONE PER PT REQUEST, UP TO BSC FOR PERICARE, FRESH ATTENDS AND DRAW SHEET PLACED, PT RESTING, PT MEDICATED WITH TYLENOL FEW MINUTES EARILIER FOR HEADACHE 04/05. PT ATTEMPTING TO REST, PLACES CPAP ON HERSELF, RESTING
--- NOTE | 2024-10-15 23:05 | NUR ---
PT ASSISTED UP TO BSC TO VOID, TOLERATED TRANSFER WITH LESS DIZZINESS THAN PREVIOUSLY, BACK TO BED, ACYLOVIR STARTED PER ORDER IN R FA IV, SITE PATENT, PT WITHOUT OTHER REQUESTS.
--- NOTE | 2024-10-15 23:17 | NUR ---
AMPICILLIN INFUSING WITHOUT DIFFICULTY. R FA IV PATENT.
[2024-10-16] VITALS (9 sets, daily range): BP systolic 154–175; BP diastolic 68–88
--- NOTE | 2024-10-16 01:32 | NUR ---
VANOCOMYCIN STARTED PER ORDER PER RIGHT FA IV, SITE INTACT, PT WITHOUT COMPLAINTS, CPAP IN PLACE, PT RESTING.
--- NOTE | 2024-10-16 01:45 | NUR ---
RN CALLED TO ROOM, REPORTS IV SITE LEAKING, SITE WET WITH CLEAR FLUID, UNABLE TO FLUSH WITHOUT CAUSING PAIN, SL D/LAY INTACT, ARMS HOT PACKED WITH WARM BLANKETS, VANCOMYCIN INFUSION STOPPED UNTIL IV ACCESS CAN BE OBTAINED.
--- NOTE | 2024-10-16 01:57 | NUR ---
STACIE CALDERON INTO ROOM TO ATTEMPT IV START.
--- NOTE | 2024-10-16 02:25 | NUR ---
In with pt for IV start. 20g IV inserted into LW on first attempt, minimal blood return, flushes well; however, skin around tip of catheter blanches when cool saline is flushed into it but immediately returns to normal color when stopped. No swelling, no leaking, no redness, no burning/stinging/pain noted. community life directorYUMIKO Araujo in to assess site as well. Secured IV with gauze, window, and tape as it is angled up and away from the wrist d/t the position. Advised pt not to bump the area and to try not to catch it on anything. Pt placed her arm into a pillow case to help her remember not to bend or move that arm. Advised pt that this IV may be temporary until someone can come to start an u/s guided IV. Bed to lowest position, side rails up x4, call light in reach.
--- NOTE | 2024-10-16 03:32 | NUR ---
In with pt and YUMIKO Jackson to assess IV in LW. Noted redness at insertion site and pt reports tenderness with flush. IV DC'd. 22g IV inserted into RH on first attempt, good blood return, flushes well with 10ml NS, no burning or stinging noted by pt. IV secured. YUMIKO Alfredo in for U/S guided attempt
--- NOTE | 2024-10-16 03:35 | NUR ---
LEFT FA SITE TENDER, SMALL AMOUNT PUFFINESS, D'ED INTACT,
--- NOTE | 2024-10-16 03:38 | NUR ---
MARYBEL RN TO ROOM TO ATTEMPT IV START WITH U/S, PT TALKATIVE, PT REQUESTING NEBULIZER TREATMENT.
--- NOTE | 2024-10-16 03:55 | NUR ---
PT UP TO BSC TO VOID 300ML, BACK TO BED.
--- NOTE | 2024-10-16 04:24 | NUR ---
A/B COMPLETE, SL, PT ATTEMPTING TO REST.
[2024-10-16 05:25] LABS: HEMATOCRIT 37.5 % (35.0-50.0); HEMOGLOBIN 12.6 g/dL (12.0-18.0); LYMPHOCYTES 6.8 % (24-44); MCH 29.8 (27-36); MCHC 33.6 g/dl (30-36); MCV 88.9 fl (81-99); MONOCYTES 3.3 % (0-12); NEUTROPHILS 89.9 % (39-80); PLATELET COUNT 277 K/uL (140-440); RBC 4.22 M/ul (4.3-5.7); RDW 14.6 (10.5-15.0)
[2024-10-16 05:38] LABS: ANION GAP 12.1 (7-21); BUN/CREATININE RATIO 24.17 (6.0-28.6); CALCIUM 8.7 mg/dL (8.5-10.1); CREATININE, SERUM 0.91 mg/dL (0.55-1.02); MAGNESIUM 2.2 mg/dL (1.8-2.4); POTASSIUM 4.1 mmol/L (3.5-5.1)
--- NOTE | 2024-10-16 06:49 | NUR ---
MARYBEL RN AT BEDSIDE, EARILIER SL IN LL FOREARM TENDER, D'LAY PER MARYBEL CALDERON, AMPICILLIN STARTED PER ORDER IN RIGHT HAND SL, SITE INTACT, INFUSING WELL.
--- NOTE | 2024-10-16 07:30 | NUR ---
PT RESTING IN BED, NOC RN AT BEDSIDE. IV TO (L) WAS POTENTIALLY AN US START 20G WHEN ASSESSING SITE, CATHETER WAS OUT AT VERY SUPERFICIAL, PT STATES IT WAS SEVERELY PAINFUL WHEN FLUSHING. REMOVED AND ONLY THE BARE MINIMUM OF TIP WAS UNDERSKIN. COBAN APPLIED. CURRENTLY ONLY GOOD IV IS (R) HAND.
[2024-10-16] MEDS ORDERED: BUDESONIDE 0.5 MG/2 ML VIAL INH SCH (08:00)
--- NOTE | 2024-10-16 09:31 | NUR ---
PT RESTING IN BEDWITH CPAP IN PLACE. IV ABX STARTED. IV TO (R) HAND IS WORKING/FLUSHING WELL AT THIS TIME. FERMENTATION OPERATOR INFORMED WE ARE LOOKING FOR MIDLINE PLACEMENT TODAY, AWAITING TO SEE IF STAFFING TO COMPLETE. MD AWARE. STRAWS PROVIDED TO PT PER REQUEST. ALL PT CARE NEEDS MET, DENIES ANY FURTHER NEEDS AT THIS TIME. WINDOW OPENED
--- NOTE | 2024-10-16 10:39 | NUR ---
THIS MORNING BEFORE HER BREAKFAST CAME PATIENT BRUSHED HER TEETH AND WASHED HER FACE. ALSO DURING HER BREATHING TREATMENT PATIENT NEEDED TO USE THE BEDSIDE COMMODE. WHILE SHE WAS UP ON THE BEDSIDE COMMODE I ASKED HER IF SHE FELT DIZZY AND SHE SAID NO. AND WHEN SHE SLOWLY STOOD UP SHE WASN'T FEELING DIZZY. UNTIL SHE MOVES A LITTLE TO FAST THAN SHE FEELS DIZZY.
--- NOTE | 2024-10-16 15:02 | NUR ---
IV ABX COMPLETED, CONTINUE WITH VANCO AT THIS TIME VIA IV. (R) HAND IV SITE LOOKS GREAT AND IS WORKING WELL FOR PATIENT AT THIS TIME, REALLY NEED TO BE CAREFUL WITH SITE. PT STATES HEADACHE IS BETTER, DENIES NEEDS FOR MEDS. PT DENIES ANXIETY. SHE STATES SHE IS FEELING SLIGHTLY WEAK/EXHAUSTED AND JUST FEELS TIRED TODAY. CALL LIGHT WITHIN REACH, FRESH ICE WATER PROVIDED, BSC EMPTIED. DENIES ANY FURTHER NEEDS AT THIS TIME.
--- NOTE | 2024-10-16 15:30 | NUR ---
RECIEVED HAND OFF REPORT FROM YUMIKO GARCIA.
--- NOTE | 2024-10-16 18:15 | NUR ---
PATIENT UP TO BR W/1PA FWW. PATIENT TOLERATED WELL W/ NO COMPLAINTS OF DIZZINESS. PT BACK INTO BED, PT HAS NO OTHER REQUESTS AT THIS TIME. CALL LIGHT WITHIN REACH.
--- NOTE | 2024-10-16 18:19 | NUR ---
PT RESTING IN BED, WATCHING TV. DENIES NEEDS. CALL LIGHT IN REACH
--- NOTE | 2024-10-16 19:08 | NUR ---
SHIFT REPORT RECEIVED FROM DEMI CALDERON, PT AWAKE AND ALERT, REMAINS IN ISOLATION, PT DENIES NEEDS AT THIS TIME.
--- NOTE | 2024-10-16 21:10 | NUR ---
PT AWAKE AND ALERT, VS COMPLETED, ACCUCHECK 222, 2 UNITS OF SS INSULIN GIVEN PER ORDER, PT ASSISTED UP TO BR WITH FWW, VOIDED 300ML, LINEN CHANGED ,BACK TO BED, ASSESSMENT COMPLETED, SL INTACT, FLUSHED SLOWLY WITHOUT DISCOMFORT ASSESSMENT COMPLETED. SL INTACT, FLUSHED SLOWLY WITHOUT DISCOMFORT, ROCEPHIN STARTED PER ORDER, SITE INTACT.
--- NOTE | 2024-10-16 22:10 | NUR ---
PT RESTING WITH CPAP IN PLACE, ROCEPHIN COMPLETED, SL FLUSHED WITH 5ML NS, SITE INTTACT, AMPICILLIN HUNG PER ORDER AND INFUSING WELL, PT WITHOUT REQUESTS.
--- NOTE | 2024-10-16 22:53 | NUR ---
PT RESTING QUIETLY, AMPICILLIN COMPLETE, ACYLOVOR HUNG AFTER SL FLUSHED, SL PATENT, ACYLOVIR STARTED PER HOUR, WARM BLANKET GIVEN PER PT REQUEST.
[2024-10-17] VITALS (8 sets, daily range): BP systolic 144–175; BP diastolic 60–88
--- NOTE | 2024-10-17 00:05 | NUR ---
ACYLOVIR COMPLETED, SL FLUSHES WELL, SITE INTACT, PT WITHOUT COMPLAINTS, CPAP IN PLACE, PT RESTING QUIETLY.
--- NOTE | 2024-10-17 01:18 | NUR ---
PT RESTING QUIETLY, RESP EVEN AND REG, CPAP IN PLACE, SL IN RIGHT HAND INTACT, FLUSHED GENTLY, VANOMYCIN STARTED PER ORDER, INFUSING WELL.
--- NOTE | 2024-10-17 02:40 | NUR ---
ATTEMPTED TO START AMPICILLIN, PT C/O TENDERNESS AT AND PUFFINESS AT SITE IN RIGHT HAND, SITE PUFFY AND VERY TENDER, DISCUSSED NEED TO RESTART SL, PT AGREES.
--- NOTE | 2024-10-17 02:50 | NUR ---
PT DESIRES TO USE BR, UP WITH FWW, AMBULATED TO BR, VOIDED 650ML YELLOW URINE, SOME DIZZINESS REPORTED, PT BACK TO BED, PREPARING FOR IV RESTART.
--- NOTE | 2024-10-17 03:00 | NUR ---
1 ATTEMPT TO RESTART IV MADE IN RIGHT FOREARM, INNER ASPECT, UNSUCESSFUL, SUPERVISIOR NOTIFIED DUE TO PT'S HX OF DIFFICULT IV STARTS, SL D'LAY INTACT FROM RIGHT HAND, DRESSING APPLIED, NO BLEEDING NOTED AT SITE. BILATERAL ARMS HOT PACKED.
--- NOTE | 2024-10-17 03:20 | NUR ---
PRIMARY RN UNABLE TO START NEW IV. COMPLAINT EVALUATION SUPERVISOR CALLED REGARDING FREQUENT LOSS OF PATIENT'S IV ACCESS AND FREQUENCY OF MEDS, EDWIGE CHAPMAN SUEPERVISOR TO COME TO FLOOR AND ATTEMPT NEW IV.
--- NOTE | 2024-10-17 03:53 | NUR ---
prefabricated houses trimmer saud in room to attempt new iv.
--- NOTE | 2024-10-17 04:23 | NUR ---
HI LOW TRUCK DRIVER EDWIGE ABLE TO PLACE 22G TO LEFT WRIST WITH SECOND ATTEMPT, PRIMARY RN BLANE UPDATED AND NOW IN ROOM FOR SCHEDULED IV ABX.
--- NOTE | 2024-10-17 04:25 | NUR ---
AMPICILLIN STARTED AFTER NEW SL PLACED, SITE INTACT, A/B INFUSING WELL, VS DONE AND STABLE FOR PT, PT STATES IV WAS HARD, PT STATES SHE FELT ANXIOUS BUT ATTEMPTING TO REST, PT C/O HEADACHE 04/05, MED WITH TYLENOL PER ORDER PER REQUEST, PT WITHOUT OTHER REQUESTS.
--- NOTE | 2024-10-17 05:00 | NUR ---
AMPICILLIN COMPLETE, SL FLUSHED, SITE INTACT AND NON TENDER WITH FLUSHING.
--- NOTE | 2024-10-17 05:15 | NUR ---
LAB IN FOR AM BLOOD DRAW.
[2024-10-17 05:30] LABS: BASOPHILS 0.1 % (0-2); HEMATOCRIT 36.6 % (35.0-50.0); HEMOGLOBIN 12.3 g/dL (12.0-18.0); LYMPHOCYTES 10.4 % (24-44); MCHC 33.6 g/dl (30-36); MCV 89.2 fl (81-99); MONOCYTES 7.6 % (0-12); NEUTROPHILS 81.9 % (39-80); PLATELET COUNT 274 K/uL (140-440); RDW 15.1 (10.5-15.0)
[2024-10-17 05:40] LABS: BUN/CREATININE RATIO 27.58 (6.0-28.6); CALCIUM 8.4 mg/dL (8.5-10.1); CREATININE, SERUM 0.87 mg/dL (0.55-1.02); MAGNESIUM 2.2 mg/dL (1.8-2.4)
--- NOTE | 2024-10-17 06:06 | NUR ---
PT ASLEEP, RESP EVEN AND REG, REMAINS ON CPAP, SL FLUSHES WELL, ACYLOVIR STARTED PER ORDER, INFUSING WELL.
--- NOTE | 2024-10-17 06:36 | NUR ---
DR ALFORD AT RN STATION AND UPDATED ON LOSS OF ONLY IV ACCESS EARLIER IN SHIFT AND AFTER [address] SINGLE 22G IV, CURRENTLY HOLDING UP WELL. NO NEW ORDERS RECEIVED.
--- NOTE | 2024-10-17 07:21 | NUR ---
RECIEVED SHIFR REPORT FROM YUMIKO ARGUELLES. PT IS RESTING IN BED, EYES CLOSED. BREATHING EVEN AND UNLABORED. CALL LIGHT IN REACH.
--- NOTE | 2024-10-17 07:24 | NUR ---
RECIEVED SHIFT REPORT FROM YUMIKO ARGUELLES. PT IS AWAKE IN BED, REQUESTING BATHROOM USE , MARI RIVER IN ROOM TO ASSIST.
[2024-10-17] MEDS ORDERED: AMPICILLIN SOD 2 GM in SODIUM CHLORIDE 0.9% 100 ML IV SCH (08:00)
[2024-10-17] MEDS ORDERED: AMPICILLIN SOD 2 GM IV SCH (08:00)
--- NOTE | 2024-10-17 09:15 | NUR ---
in room to give medications, pt walked to the bathroom, fww. will call when finished. call string in reach
--- NOTE | 2024-10-17 09:24 | NUR ---
physical therapy in room working with pt. mat RT busy at this moment asked this rn to give neb tx. will give tx and iv medications after physical therapy.
[2024-10-17] MEDS ORDERED: ALBUTEROL/IPRATROPIUM 3 ML NEB ONE (09:41)
[2024-10-17] MEDS ORDERED: BUDESONIDE 0.5 MG/2 ML VIAL ONE (09:42)
--- NOTE | 2024-10-17 10:01 | NUR ---
MORNING ASSESSMENT COMPLETE. PT HAS HYPERSENSITIVITY TO IV, BUT TOLERATING INFUSIONS AT TIME. BREATHING TXS GOING AT THIS TIME. PT JUST FINISHED WORKING WITH PHYSICAL THERAPY. DENIES DISCOMFORT. CALL LIGHT IN REACH.
--- NOTE | 2024-10-17 12:10 | NUR ---
THIS RN IN ROOM WITH CHEYENNE OLIVO. GEOVANI WAS NOT SUCCESSFUL WITH LUMBAR PUNCTURE. GEOVANI ATTEMPTED X4, BUT UNSUCCESSFUL AT THIS TIME. PT TOLERATED WELL DURING PROCEDURE, WAS QUED TO TAKING DEEP BREATHES. ONCE PROCEDURE WAS DONE PT BEGAN TO GET DIZZY AND LIGHTHEADED. PT LAYED DOWN IN BED AND WAS ABLE TO FEEL BETTER. PRN PAIN MEDICATION AND ANXIETY MEDICATION ADMINISTERED (PER EMAR). PT EDUCATED TO CALL RN IF HEADACHE WORSENS, BECOMES MORE WEAK IN THE LEGS, AND IF ANY NUMBNESS APPEARS. PT UNDERSTANDING. CALL LIGHT IN REACH.
--- NOTE | 2024-10-17 14:18 | NUR ---
PT RESTING IN BED, SLEEPING EASY TO AROUSE. FEELS THE LP EXHAUSTED HER. PT DENIES ANY DISCOMFORT AT THIS TIME. CALL LIGHT IN REACH.
--- NOTE | 2024-10-17 16:15 | NUR ---
ATTEMPTED TO FLUSH PT IV. YUMIKO BARKSDALE IN ROOM TO CHECK FOR ANOTHER IV SITE
--- NOTE | 2024-10-17 17:31 | NUR ---
PT UP TO THE BATHROOM. BACK IN BED. DENIES NEEDS. CALL LIGHT IN REACH
--- NOTE | 2024-10-17 18:00 | NUR ---
PT RESTING IN BED, AWAKE WATCHING TV. DENIES NEEDS AT THIS TIME. CALL LIGHT IN REACH.
--- NOTE | 2024-10-17 20:08 | NUR ---
RECEIVED REPORT AT 1900 FROM AM RN, CJ. PT IN BED, WATCHING TV. NO NEEDS.
--- NOTE | 2024-10-17 20:31 | NUR ---
IV FLUSHED, ANTIBIOTIC INFUSHING. PT GETTING NEB TREATMENT AT THIS TIME. POC DISCUSSED. PT IN AGREEMENT.
--- NOTE | 2024-10-17 21:39 | NUR ---
ASSESSMENT COMPLETE. MEDICATED FOR BACK PAIN. BACK PUNCTURE SITES RED, WITHOUT SIGNS OF INFECTION, NO BLEEDING. INDEPENDENT GETTING INTO BED, REQUIRED ASSISTANCE GETTING OUT OF BED. HANDS PAINFUL FROM PREVIOUS IV SITES, NO SWELLING NOTED. STATED SHE HAD A BM TODAY. SL FRUSTRATED WITH THE "NEW IV'S THAT I HAVE TO HAVE", REFERING TO THE IV'S THAT HAVE BEEN DC'D D/T NOT BEING PATENT. NOTED SL HEARING DIFFICULTY. CALL LIGHT WITHIN REACH.
--- NOTE | 2024-10-17 22:37 | NUR ---
ANTIBIOTIC INFUSING. MELATONIN GIVEN. PT STATES THAT PAIN HAS IMPROVED SL AFTER PAIN MEDICATION. PT USING CPAP MACHINE AT THIS TIME. POC DISCUSSED. REFILLED WATER PER CHOICE. CALL LIGHT AND PERSONAL SUPPLIES WITHIN REACH.
--- NOTE | 2024-10-17 22:50 | NUR ---
REPORT RECEIVED FROM MICHELLE CALDERON, ASSUMING CARE OF PT.
--- NOTE | 2024-10-17 23:24 | NUR ---
ENVIRONMENTAL RESOURCE SPECIALIST HELPED PT WALK TO THE BATHROOM AND BACK TO BED. ENVIRONMENTAL RESOURCE SPECIALIST BROUGHT A WARM BLANKET FOR PATIENT.
[2024-10-18] VITALS (10 sets, daily range): BP systolic 119–151; BP diastolic 50–72
--- NOTE | 2024-10-18 00:47 | NUR ---
PT RESTING QUIELTY WITH EYES CLOSED, RESP EVEN AND REGULAR, CPAP IN PLACE, SL IN LEFT FA GENTLY FLUSHED, AMPICILLIN STARTED PER ORDER, SR UP X 3, BED LOW POSITION,
--- NOTE | 2024-10-18 01:28 | NUR ---
PT RESTING QUIETLY, AWAKE BRIEFLY BUT DENIES NEEDS AT THIS TIME, SL GENTLY FLUSHED, SITE INTACT, VACOMYCIN STARTED, RATE DECREASED TO 200ML/HR FROM 270ML/HR DUE TO SIZE OF SL (22 G), AND DIFFICULTY LOCATING NEW IV SITES, WARM BLANKET TO ARM PER PT REQUEST.
--- NOTE | 2024-10-18 01:46 | NUR ---
PT REQUESTING TYLENOL FOR HEADACHE AND BACK ACHE, MEDICATED PER ORDER, CPAP REPLACED, WARM BLANKET TO FEET PER REQUEST, IV SITE PATENT.
--- NOTE | 2024-10-18 02:30 | NUR ---
PT RESTING, WITHOUT REQUESTS AT THIS TIME.
--- NOTE | 2024-10-18 04:30 | NUR ---
PT AWAKE AND ALERT, UP TO BSC TO VOID 600ML YELLOW URINE, PT FELT DIZZY WITH SITTING UP, BUT THIS SUBSIDED AFTER A FEW MOMENTS, PT STATES EARILIER TYLENOL REALLY HELPED WITH BACK PAIN, BACK TO BED, VS DONE AND STABLE, IV SITE PATENT, AMPICILLIN STARTED PER ORDER. PT RESTING WITHOUT OTHER REQUESTS.
--- NOTE | 2024-10-18 05:26 | NUR ---
LAB IN FOR AM BLOOD DRAW.
[2024-10-18 05:44] LABS: BASOPHILS 0.3 % (0-2); EOSINOPHILS 0.4 % (0-6); HEMATOCRIT 36.7 % (35.0-50.0); HEMOGLOBIN 12.4 g/dL (12.0-18.0); LYMPHOCYTES 20.2 % (24-44); MCHC 33.7 g/dl (30-36); MCV 89.2 fl (81-99); MONOCYTES 11.9 % (0-12); NEUTROPHILS 67.2 % (39-80); PLATELET COUNT 250 K/uL (140-440); RBC 4.12 M/ul (4.3-5.7); RDW 14.7 (10.5-15.0)
[2024-10-18 05:55] LABS: ANION GAP 9.8 (7-21); BUN/CREATININE RATIO 27.16 (6.0-28.6); CALCIUM 8.1 mg/dL (8.5-10.1); CREATININE, SERUM 0.81 mg/dL (0.55-1.02); MAGNESIUM 2.1 mg/dL (1.8-2.4); POTASSIUM 3.8 mmol/L (3.5-5.1)
--- NOTE | 2024-10-18 06:20 | NUR ---
PT APPEARS TO SLEEP, RESP EVEN AND REG, ACYLOVIR HUNG AND INFUSING PER ORDER, IV SITE PATENT.
--- NOTE | 2024-10-18 07:15 | NUR ---
RECIEVED MORNING REPORT FROM PRECISION MECHANICAL INSTRUMENT MAKER RN, PT LAYING IN BED AWAKE. SPOKE WITH PT ABOUT CONTINUED POC, PT WAS AGREEABLE. PT HAS NO CONCERNS AT THIS TIME CALL LIGHT WITHIN REACH.
--- NOTE | 2024-10-18 08:34 | NUR ---
SPOKE WITH PT ABOUT TREATING THE NURSING STAFF RESPECTFULLY. TALKED TO THE PT AND LET HIM KNOW THAT WE ARE HERE TO HELP HIM AND THAT WE DESERVE TO BE TREATED RESPECTFULLY. PT WAS RECEPTFUL CONTINUE TO REINFORCE WITH PT.
--- NOTE | 2024-10-18 08:42 | NUR ---
PATIENT IN CHAIR AT THIS TIME. HOME CARE MANAGER RN WENT INTO PATIENTS ROOM FOR HOURLY ROUNDS AND HOME CARE MANAGER RN CHARTED BLOOD SUGAR. CALL LIGHT WITHIN REACH, NO FURTHER NEEDS AT THIS TIME.
--- NOTE | 2024-10-18 08:55 | NUR ---
ATTEMPTED TO FLUSH IV. PT STATES IV SITE IS PAINFUL, PINK AND WARM TO THE TOUCH IN THE AREA.
--- NOTE | 2024-10-18 10:50 | NUR ---
PT SITTING IN BED PT REPORTED NAUSEA. PT CURRENTLY DOES NOT HAVE IV ACCESS SO DAYNE CALDERON SPOKE WITH DR ALFORD AND RECIEVED A VERBAL ORDER FOR SUB ZOFRAN UNTIL IV ACCESS OBTAINED. PT HAS NO OTHER CONCERNS AT THIS TIME. CALL LIGHT WITHIN REACH.
[2024-10-18] MEDS ORDERED: ONDANSETRON 4 MG TAB ODT SL PRN (11:00)
--- NOTE | 2024-10-18 11:06 | NUR ---
PT NOT AVAILABLE FOR VISIT. PROVIDED PRAYER.
--- NOTE | 2024-10-18 11:50 | NUR ---
PT SITTING IN ROOM WITH RN WHO IS PUTTING IN IV ACCESS. PT IS TOLERATING WELL. RN FIRST ATTEMPT UNSUCESSFUL. PT IS WAITING FOR SECOND ATTEMPT AT THE MOMENT. PT HAS NO CONCERNS.
--- NOTE | 2024-10-18 12:30 | NUR ---
"MIDLINE INSERTION" MIDLINE REQUEST DUE TO PT LOSING IV ACCESS DAILY. BILATERAL UPPER EXTREMITIES ASSESSED, LEFT CEPHALIC VEIN CHOSEN AND ATTEMPTED WITHOUT SUCCESS. RIGHT CEPHALIC VEIN ASSESSED AND MARKED. STERILE FIELD SET UP AND ARM PREPPED FOR INSERTION. VEIN ACCESSED WITH 18 G MIDLINE USING ULTRASOUND FOLLOWING STERILE TECHNIQUE, GUIDE WIRE DEPLOYED WITHOUT RESISTANCE, MIDLINE CATHETER ADVANCED. PT TOLERATING WELL. NON PULSATILE, DARK RED BLOOD RETURNED. 10 ML SALINE FLUSH, BLOOD RETURNED. MIDLINE SECURED FOLLOWING STERILE TECHNIQUE. 18 G 10 CM, NO CM EXPOSED, 44 MC ARM CIRC. DRESSING LABELED WITH MEASUREMENTS. PT EDUCATED, REPORT TO DAYNE CALDERON. MIDLINE READY FOR USE.
--- NOTE | 2024-10-18 13:30 | NUR ---
PT SITTING IN BED PT EXPRESSES FEELING "WORN OUT" FROM THE MID LINE PUT IN EARLIER IN THE AFTERNOON. PT TOLERATED IT WELL. PT CURRENTLY SITTING IN BED WHILE IV ANTIBIOTICS INFUSE (SEE AARON). PT CALL LIGHT WITHIN REACH.
--- NOTE | 2024-10-18 13:52 | NUR ---
CASE MANAGEMENT 1350: NO NEED FOR CASE MANAGEMENT TODAY
--- NOTE | 2024-10-18 14:50 | NUR ---
PT IV ANTIBIOTICS STARTED. IV MIDLINE STILL INTACT AND FLSHES WITHOUT DIFFICULTY, DRESSING CLEAN DRY AND INTACT. PT SITTING IN BED WITH EYES CLOSED AND CHEST RISE EQUAL BILAT. PT HAS NO CONCERNS AT THIS TIME AND CALL LIGHT WITHIN REACH.
--- NOTE | 2024-10-18 16:15 | NUR ---
ASSISTED PT TO THE BATHROOM. PT DENIES ANY DISCOMFORT. WILL CALL ONCE DONE
--- NOTE | 2024-10-18 17:45 | NUR ---
PT SITTING UPRIGHT IN BED PT JUST FINISHED DINNER. PT HAS NO CONCERNS AT THIS TIME AND HAS CALL LIGHT WITHIN REACH.
--- NOTE | 2024-10-18 18:05 | NUR ---
THE PT IS SITTING IN BED WATCHING TV PT HAS NO CONCERNS AT THIS TIME CALL LIGHT WITHIN REACH.
--- NOTE | 2024-10-18 18:18 | NUR ---
IN TO DO VITALS AND I&O'S. VITALS AND I&O'S DONE AND CHARTED. PATIENT REFUSED SHOWER AT THIS TIME AND WOULD LIKE ONE IN THE MORNING. PATIENT UP TO BATHROOM AND BACK TO BED, SBA FWW. CALL LIGHT IN REACH. NO FURTHER NEEDS AT THIS TIME.
--- NOTE | 2024-10-18 19:01 | NUR ---
SHIFT REPORT RECEIVED FROM DEMI CALDERON AND RADHA CALDERON, ASSUMING CARE OF PT.
--- NOTE | 2024-10-18 19:58 | NUR ---
PT APPEARS TO SLEEP, RESP EVEN AND REG, CPAP IN PLACE.
--- NOTE | 2024-10-18 21:00 | NUR ---
PT AWAKEN, ALERT, VS STABLE, PT ASSISTED UP TO BR TO VOID 400ML YELLOW URINE, 1PA WITH FWW, BACK TO BED, ASSESSMENT COMPLETED, PT REQUESTING TYLENOL FOR LOWER BACK PAIN 05/05, GIVEN PER ORDER, RIGHT UPPER ARM PICC LINE WITH GOOD BLOOD RETURN AND FLUSHES WELL WITH NS, MEASURING 43.5CM, DRESSING INTACT, AMPICILLIN STARTED PER ORDER, INFUSING WELL, ACCUCHECK 142, 1U SS INSULIN GIVEN PER ORDER, CPAP BACK ON, SIDE RAILS UP X 4, BED LOW POSITION AND CALL LIGHT IN REACH, LIGHTS DIMMED AND PT RESTING WITH EYES CLOSED.
--- NOTE | 2024-10-18 21:54 | NUR ---
PT APPEARS TO SLEEP, RESP EVEN AND REG, ROCEPHIN HUNG PER ORDER, INFUSING WELL PER PICC, LINE PATENT.
--- NOTE | 2024-10-18 22:29 | NUR ---
ACYLOVIR STARTED PER ORDER PER PICC LINE, SITE PATENT, PT ASLEEP, RESP EVEN AND REG, CPAP IN PLACE.
--- NOTE | 2024-10-18 23:39 | NUR ---
PT APPEARS TO SLEEP, RESP EVEN AND REG, CPAP IN PLACE.
[2024-10-19] VITALS (10 sets, daily range): BP systolic 113–156; BP diastolic 55–95
--- NOTE | 2024-10-19 00:31 | NUR ---
PT RESTING QUIETLY WITH EYES CLOSED, RESP EVEN AND REG, AMPICILLIN INFUSING PER ORDER, PICC SITE WNL, A/B INFUSING WELL.
--- NOTE | 2024-10-19 01:16 | NUR ---
PT AWAKE, ASSISTED UP TO BR WITH FWW AND 1PA, SOME DIZZINES UPON STANDING, VOIDED 550ML YELLOW URINE, BACK TO BED, WITHOUT REQUESTS, RIGHT PICC LINE SITE PATENT AND DRESSING INTACT, VANCOMYCIN HUNG PER ORDER AND INFUSING WELL PICC LINE. CPAP REPLACED BY PT, RESTING.
--- NOTE | 2024-10-19 02:25 | NUR ---
PT APPEARS TO BE SLEEPING, RESP EVEN AND REG, CPAP REMAINS ON AT THIS TIME.
--- NOTE | 2024-10-19 03:05 | NUR ---
SBA TO THE BATHROOM TO URINATE 700ML YELLOW URINE AND BACK TO BED. FRESH PULL UP PROVIDED PER PATIENT STATED I PEED MY PANTS. NO FURTHER NEEDS AT THIS TIME.
--- NOTE | 2024-10-19 03:38 | NUR ---
PT RESTING QUIETLY, DENIES NEEDS AT THIS TIME, CPAP REMAINS ON.
--- NOTE | 2024-10-19 04:18 | NUR ---
PT RESTING QUIETLY, RESP EVEN AND REG, AMPICILLIN STARTED PER ORDER PER MIDLINE CATHETER RIGHT UPPER ARM, SITE INTACT, NO SWELLING OR BLEEDING AT SITE.
--- NOTE | 2024-10-19 05:50 | NUR ---
PT AWAKE AND ALERT, ASSISTED UP TO BR TO VOID 700ML YELLOW URINE, NO REPORTED DIZZINESS AT THIS TIME JUST REPORTS BEING SLEEPY, BACK TO BED, VS STABLE, AFEBRILE, AM LABS DRAW VIA MID LINE, GOOD BLOOD RETURN NOTED AND DRESSING INTACT, 10ML WASTE BEFORE COLLECTION OF BLOOD, CATHETER FLUSHED WITH 10ML NS, ACYLOVIR STARTED PER ORDER, INFUSING WELL, PT DENIES NEEDS, CPAP ON, PT ATTEMPTING TO REST.
[2024-10-19 06:00] LABS: BASOPHILS 0.3 % (0-2); EOSINOPHILS 1.3 % (0-6); HEMATOCRIT 38.6 % (35.0-50.0); HEMOGLOBIN 12.7 g/dL (12.0-18.0); LYMPHOCYTES 14.8 % (24-44); MCH 29.8 (27-36); MCHC 32.9 g/dl (30-36); MCV 90.4 fl (81-99); MONOCYTES 8.4 % (0-12); NEUTROPHILS 75.2 % (39-80); PLATELET COUNT 239 K/uL (140-440); RBC 4.28 M/ul (4.3-5.7); RDW 15.1 (10.5-15.0)
[2024-10-19 06:09] LABS: ANION GAP 9.2 (7-21); BUN/CREATININE RATIO 24.09 (6.0-28.6); CALCIUM 8.3 mg/dL (8.5-10.1); CREATININE, SERUM 0.83 mg/dL (0.55-1.02); MAGNESIUM 2.1 mg/dL (1.8-2.4); POTASSIUM 4.2 mmol/L (3.5-5.1)
--- NOTE | 2024-10-19 07:25 | NUR ---
RECIEVED MORNING REPORT FROM YUMIKO ARGUELLES. PT LAYING IN BED WITH EYES CLOSED AND CPAP ON PT CHEST RISE EQUAL BILAT. PT LAST NIGHT REPORTED BACK PAIN TO GLASS ENGRAVER RN, RECIEVED PRN MEDICATION (EMAR). PT HAS NO CONCERNS AT THIS TIME CALL LLIGHT WITHIN REACH.
--- NOTE | 2024-10-19 09:06 | NUR ---
NASAL SWAB DONE AND SENT TO LAB
--- NOTE | 2024-10-19 09:30 | NUR ---
PT SITTING UPRIGHT IN CHAIR PT STATES HER STOMACH FEELS FUNNY BUT DENIES NEED FOR PRN ZOFRAN. DURING PT ASSESSMENT ABD PALPATED AND WAS SOFT/NON TENDER. PT CALL LIGHT WITHIN REACH NO CONCERNS AT THIS TIME.
--- NOTE | 2024-10-19 10:21 | NUR ---
PATIENT CALLED FROM BATHROOM WHEN DONE, THIS RCIS IN TO ASSIST PATIENT. PATIENT DID YUKO CARE. PATIENT TRANSFERED TO SHOWER CHAIR FROM TOILET, SBA FWW. PATIENT MOSTLY INDEPENDENT IN SHOWER. YUKO CARE, SKIN CARE, SHAMPPO DONE. NEW GOWN AND ATTENDS PROVIDED. MARI PAGAN DID LINEN CHANGE EARLIER. PATIENT BACK TO BED AFTER SHOWER, SBA FWW. PATIENT TOLERATED ACTIVITY WELL AND STATES "I FEEL LESS SHORT OF BREATH AND EXHAUSTED TODAY EVEN AFTER DOING ALL THAT." PATIENT NOW RESTING IN BED. CALL LIGHT IN REACH. NO FURTHER NEEDS AT THIS TIME. "
--- NOTE | 2024-10-19 11:11 | NUR ---
PT SITTING IN CHAIR WATCHING TV. PT SAYS SHE DOES NOT FEEL ANY NAUSEA AT THE MOMENT AND HAS NO NEEDS AT THIS TIME. PT CALL LIGHT WITHIN REACH.
--- NOTE | 2024-10-19 12:05 | NUR ---
PT SITTING IN CHAIR EATING LUNCH PT HAS NO NEEDS AT THIS TIME, CALL LIGHT WITHIN REACH.
--- NOTE | 2024-10-19 12:36 | NUR ---
VERBAL REPORT PROVIDED TO SELENA RN AND YUMIKO GARCIA.
--- NOTE | 2024-10-19 13:10 | NUR ---
PT MOVED FROM CHAIR BACK INTO BED. PT DID SHOW SIGNS OF MILD PAIN WHEN FIRSST GETTING OUT OF CHAIR DUE TO THE ATTEMPTED SPINAL TAP PREVOUSLY. PT DIDNT REQUEST ANY PAIN MEDICATION. PT CALL LIGHT WITHIN REACH.
--- NOTE | 2024-10-19 13:27 | NUR ---
PT SITTING IN CHAIR EATING LUNCH PT HAS NO NEEDS AT THIS TIME, CALL LIGHT WITHIN REACH.
--- NOTE | 2024-10-19 14:26 | NUR ---
PT LAYING IN BED WATCHING TV WITH LIGHTS DIM PT HAS NO CURRENT NEEDS CALL LIGHT WITHIN REACH.
--- NOTE | 2024-10-19 15:59 | NUR ---
PT SITTING IN BED WATCHING TV PT HAS NO CONCERNS AT THIS TIME CALL LIGHT WITHIN REACH.
--- NOTE | 2024-10-19 16:43 | NUR ---
BEFORE PATIENT SET UP IN HER CHAIR FOR BREAKFAST WE WALKED TO THE BATHROOM TOGETHER. PATIENT ALSO WASHED HER FACE AND BRUSHED HER TEETH AFTER BREAKFAST. BED LINENS WERE CHANGED.
--- NOTE | 2024-10-19 17:06 | NUR ---
PT LAYING IN BED WATCHING TV PT JUST RECIEVED DINNER. NEW IV ANTIBIOTICS ADMINISTERED (SEE EMAR). PT HAS NO CONCERNS AT THIS TIME CALL LIGHT WITHIN REACH.
--- NOTE | 2024-10-19 17:51 | NUR ---
PT AMBULATED FROM THE BED TO THE RESTROOM AND TOLERATED WELL PT USED CALL LIGHT CORRECTLY PT MOVED FROM RESTROOM TO BED. LA LIGHT WITHIN REACH.
--- NOTE | 2024-10-19 19:34 | NUR ---
Pt report received from RN's Bryan and SELENA at about 1905 hours. Pt is resting supine in bed, A&O x4, television on, side rails up x4, call light in reach, bedside tables and personal belongings in reach. Pt denies any needs at this time. Assessment done at this time. White board updated.
--- NOTE | 2024-10-19 21:05 | NUR ---
While administering neb tx's per emar, earlier, I refilled pt's cpap machine with the sterile water at bedside.
--- NOTE | 2024-10-19 22:44 | NUR ---
PATIENT CALLED TO USE THE BATHROOM SBA. PATIENT VOIDED 600ML LIGHT YELLOW URINE. PATIENT IS BACK IN BED. NO OTHER NEEDS AT THIS TIME.
[2024-10-20] VITALS (10 sets, daily range): BP systolic 133–149; BP diastolic 59–78
--- NOTE | 2024-10-20 02:00 | NUR ---
verbal report received from swetha marvin, this rn to take over pt care. pt awake and resting in bed, iv pump alarming. iv abx complete and iv midline saline locked, site wnl. no change to arm circumference 10cm above ac-44cm. lung sounds clear, pt denies chest pain, sob. abd tones active, pt denies nausea. cms intact, strong bilateral pedal and radial pulses. pt to bathroom and voided 800mls, back in bed, home cpap in place. no further needs, call light in reach.
--- NOTE | 2024-10-20 04:35 | NUR ---
SCHEDULED IV ABX GIVEN-SEE EMAR DIRECTED. IV MIDLINE WNL. HOME CPAP IN PLACE, pt DENIES NEEDS OR CONCERNS. CALL LIGHT IN REACH.
--- NOTE | 2024-10-20 05:20 | NUR ---
scheduled iv abx complete, pump cleared nd iv midline saline locked, site remains wnl. am vs and i&o's complete, call light in reach. fresh ice water provided, no further needs or concerns verbalized.
--- NOTE | 2024-10-20 06:40 | NUR ---
scheduled iv abx infusing as directed, iv site wnl. director of consumer marketing in room to assist pt to bathroom.
--- NOTE | 2024-10-20 07:30 | NUR ---
PT SITTING UP IN CHAIR THIS MORNING ON FIRST ROUNDS. DENIES ANY NEEDS, IV ABX INFUSING AT THIS TIME. CALL LIGHT WITHIN REACH, PT CONTINUES TO WATCH TV AT THIS TIME. DENIES ANY FURTHER NEEDS
--- NOTE | 2024-10-20 09:05 | NUR ---
PT RESTING IN BED WATCHING TV. IV ABX STARTED. PT IS C/O PAIN WITH INITIAL FLUSH OF MIDLINE, OTHERWISE IMPROVES AFTER FLUSHING. SITE LOOKS WNL. PT DENIES ANY FURTHER NEEDS AT THIS TIME.
--- NOTE | 2024-10-20 09:29 | NUR ---
PATIENT IN BED RESTING AT THIS TIME. VITALS DONE BY RN EARLIER. I&O'S DONE AND CHARTED. CALL LIGHT IN REACH. NO FURTHER NEEDS AT THIS TIME.
--- NOTE | 2024-10-20 12:24 | NUR ---
ASSISTED PT UP TO BATHROOM, PT GOT OUT OF BED INDEPENDLTY, USE WALKER WITH STEADY GAIT TO BATHROOM, NOW BACK IN BED. OFFERED TO SIT UP IN CHAIR, SHE C/O LOW BACK PAIN AT THIS TIME, WARM BLANKET PROVIDED TO BACK WHEN PT BACK TO BED. IV ABX INFUSING TO MIDLINE, FLUSHED W/O PAIN THIS TIME. PAIN IN LOW BACK /, OFFERED TYLENOL BUT PT DECLINED AT THIS TIME. CALL LIGHT WITHIN REACH, LUNCH TRAY REMOVED FROM ROOM. ALL PT CARE NEEDS MET AT THIS TIME.
--- NOTE | 2024-10-20 13:32 | NUR ---
PT RESTING IN BED, SHE IS SLEEPY TODAY BUT DENIES HEADACHE. WARM BLANKET HELPED WITH LOW BACK PAIN. IV ABX INFUSING ORDERED - SEE MAR. VS STABLE. PT DENIES ANY NEEDS AT THIS ITME. RESTING WATCHING TV AT THIS TIME. CALL LIGHT WITHIN REACH.
--- NOTE | 2024-10-20 15:46 | NUR ---
PT STATES NO BM FOR A FEW DAYS, THOUGHT SHE WOULD HAVE BM TODAY BUT UNSUCCESSFUL, REQUESTING SOMETHING. NIO ORDER FOR MIRALAX, WILL START THIS EVENING. PT INFORMED AND AGREES. SITTING UP IN CHAIR AT THIS TIME, PT STATES SHE IS BORED, LONGEST DAY SINCE SHE HAS BEEN HERE. DENIES ANY NEEDS AT THIS TIME. ALL PT CARE NEEDS MET.
--- NOTE | 2024-10-20 16:45 | NUR ---
REPORT REC'D FROM YUMIKO GARCIA. PT RESTING COMFORTABLY IN BED, FSBS 166.
--- NOTE | 2024-10-20 18:25 | NUR ---
PATIENT IN BED WATCHING TV. VITALS AND I&O'S DONE AND CHARTED. CALL LIGHT IN REACH. NO FURTHER NEEDS AT THIS TIME.
--- NOTE | 2024-10-20 18:58 | NUR ---
PT UP TO BR X 1 FOR BM. DENTURES REMOVED FOR THE NIGHT. NO C/O VOICED. SR UP X4, CALL AVILA IN REACH, BED IN LOW POSITION AND LOCKED. REPORT GIVEN TO YUMIKO SMART
--- NOTE | 2024-10-20 19:23 | NUR ---
Received report from YUMIKO Collier. Droplet precautions in place. Pt resting in bed, denies needs at this time. Call light within reach.
--- NOTE | 2024-10-20 20:15 | NUR ---
PT RESTING IN BED. VS OBTAINED BY JENNIE. PT USES CALL LIGHT APPROPRIATELY. ASSISTED PT TO BR, PT IS SBA W/ FWW. REPORTS CHRONIC PAIN TO LEFT KNEE, PT REQUESTED PRN TYLENOL-ADMINISTERED PER EMAR. LSC, PT IND W/ HOME C-PAP AT BEDSIDE. HRR. BTA, LBM TODAY. VOIDS WNL. PICC LINE TO MACIE, CIRCUM 41CM. ATB'S INFUSING PER EMAR. BG 144, REQUIRED 1 UNIT INSULIN. DROPLET PRECAUTIONS IN PLACE. CALL LIGHT WITHIN REACH.
[2024-10-20] MEDS ORDERED: POLYETHYLENE GLYCOL 3350 1 PACKET PO SCH (21:00)
--- NOTE | 2024-10-20 23:18 | NUR ---
PT SLEEPING SOUNDLY, C-PAP IN PLACE. DROPLET PRECAUTIONS IN PLACE.
--- NOTE | 2024-10-21 01:16 | NUR ---
PT APPEARS ASLEEP, C-PAP IN PLACE.
--- NOTE | 2024-10-21 03:00 | NUR ---
PT SLEEPING SOUNDLY, APPEARS COMFORTABLE.
--- NOTE | 2024-10-21 03:18 | NUR ---
CALL LIGHT ANSWERED. PT NEEDED TO USE BATHROOM. MANAGER CONTROL SBA WITH FWW TO BATHROOM. PT VOIDED AND ASSISTED BACK TO BED. PT STATES NO FURTHER NEEDS AT THIS TIME. CALL LIGHT WITHIN REACH.
--- NOTE | 2024-10-21 04:54 | NUR ---
PT AWAKE BRIEFLY, SLEEPING BETWEEN CARE. IV ATB INFUSING PER EMAR.
[2024-10-21 06:04] VITALS: BP 154/56
--- NOTE | 2024-10-21 06:05 | NUR ---
PROFESSIONAL DRIVER OBTAINED AND DOCUMENTED PT WEIGHT, VITALS, AND I&O. PT STATED THE NEED TO USE BATHROOM. PROFESSIONAL DRIVER SBA WITH FWW TO BATHROOM. PT VOIDED AND ASSISTED BACK TO BED. PT STATES NO FURTHER NEEDS AT PLACED CPAP BACK ON. CALL LIGHT WITHIN REACH.
[2024-10-21 06:13] VITALS: BP 154/56
[2024-10-21 08:46] VITALS: BP 177/63
[2024-10-21 08:47] VITALS: BP 177/63
--- NOTE | 2024-10-21 09:04 | NUR ---
SITTING UP IN RECLINER. STATES SHE IS READY TO GO HOME. CONTINUES TO DENY CASE MANAGEMENT NEEDS AT THIS TIME.
--- NOTE | 2024-10-21 09:05 | NUR ---
PT SITTING UP IN CHAIR THIS MORNING HAVING BREAKFAST, IN GOOD SPIRITS. DENIEWS PAIN, DENIES HEADACHE. DIZZINESS IS MUCH BETTER TODAY, UP TO BATHROOM WITH HEATING AND VENTILATING WORKER. IV ABX STARTED, MIDLINE DRESSING CDI, FLUSHES GOOD, PT DENIES PAIN WITH FLUSH THIS MORNING. BLOOD PRESSURE ELEVATED, OTHERWISE VS STABLE, MORNING BP MED GIVEN - SEE DEC. PT REFUSED MIRALAX, WILL CHANGE NIO TO PRN AT THIS TIME. BM REPORTED LAST NIGHT BY PT THIS MORNING TO ME, STATES IT WAS XLARGE. DROPLET PRECAUTIONS REMAIN IN PLACE. WINDOW OPENED IN ROOM, PT REQUESTING THE CURTAIN TO BE OPEN TODAY SO SHE CAN SEE OUT, FEELING SLIGHTLY DOWN/DEPRESSED BEING IN HERE SO LONG. ALL PT CARE NEEDS MET, CALL LIGHT WITHIN REACH. FRESH ICE WATER PROVIDED.
--- NOTE | 2024-10-21 10:51 | NUR ---
THIS MORNING AFTER DOING PATIENT'S BLOOD SUGAR CHECK AND RT DOING HER BREATHING TREATMENT. SHE GOT OUT OF BED WALKED TO THE BATHROOM WHEN SHE GOT DONE. THAN WE WALKED TO HER CHAIR. SET HER UP FOR BREAKFAST SHE WASHED HER FACE. I COMBED HER HAIR SHE BRUSHED HER TEETH AFTER BREAKFAST.
--- NOTE | 2024-10-21 10:59 | NUR ---
PT SITTING UP IN CHAIR, IV ABX COMPLETED. IV SALINE LOCKED. PILLOWS PROVIDED UNDER PT ARMS, OFFERED WARM BLANKET BUT PT DENIED NEED. CALL LIGHT WITHIN REACH, C/O PAIN IN SHOULDERS BUT DENIES NEED FOR PAIN MEDS.
[2024-10-21] MEDS ORDERED: ZESTRIL5 MG PO (11:56)
[2024-10-21 14:20] VITALS: BP 138/59
[2024-10-22] MEDS ORDERED: CEPHALEXIN500 M1 PO (15:43)
== END 2024-10-21 14:58 | disposition home or self-care (01) | DRG 98 ==
LOC: ED 08:41 → MS 11:52
PROVIDERS: Emergency Medicine; Student in an Organized Health Care Education/Training Program; ADMIT Student in an Organized Health Care Education/Training Program; ATTEND Student in an Organized Health Care Education/Training Program
PROC: 00JU3ZZ Inspection of Spinal Canal, Percutaneous Approach (ICD-10-PCS; principal; 2024-10-17)
DX: G03.9 Meningitis, unspecified (principal); I50.32 Chronic diastolic (congestive) heart failure; I11.0 Hypertensive heart disease with heart failure; F32.9 Major depressive disorder, single episode, unspecified; M54.2 Cervicalgia; F41.1 Generalized anxiety disorder; K21.9 Gastro-esophageal reflux disease without esophagitis; J44.9 Chronic obstructive pulmonary disease, unspecified; E66.9 Obesity, unspecified; E78.5 Hyperlipidemia, unspecified; G47.33 Obstructive sleep apnea (adult) (pediatric); M85.80 Other specified disorders of bone density and structure, unspecified site; G47.10 Hypersomnia, unspecified; F43.22 Adjustment disorder with anxiety; Z96.611 Presence of right artificial shoulder joint; E11.65 Type 2 diabetes mellitus with hyperglycemia; Z96.612 Presence of left artificial shoulder joint; F39 Unspecified mood [affective] disorder; R53.81 Other malaise; Z99.89 Dependence on other enabling machines and devices; Z90.49 Acquired absence of other specified parts of digestive tract; Z90.710 Acquired absence of both cervix and uterus; Z98.890 Other specified postprocedural states; Z88.8 Allergy status to other drugs, medicaments and biological substances; Z86.73 Personal history of transient ischemic attack (TIA), and cerebral infarction without residual deficits; Z86.16 Personal history of COVID-19; Z87.891 Personal history of nicotine dependence; Z79.899 Other long term (current) drug therapy; Z79.51 Long term (current) use of inhaled steroids; I25.2 Old myocardial infarction; Z79.02 Long term (current) use of antithrombotics/antiplatelets; Z90.89 Acquired absence of other organs; Z88.5 Allergy status to narcotic agent; Z91.048 Other nonmedicinal substance allergy status; Z68.37 Body mass index [BMI] 37.0-37.9, adult
CPT/HCPCS: 36415; 36569; 70450; 70496; 70498; 70551; 71045; 80048; 80053; 80202; 80307; 81003; 82945; 83036; 83735; 83880; 83986; 84157; 84484; 85025; 85379; 85610; 85651; 85730; 86140; 87070; 87205; 89051; 93005; 93010; 94640; 94760; 97110; 97116; 97161; 97165; 97530; 97535; 99285-25; A9270; C1751; J0133; J0290; J0696; J1100; J1200; J1644; J1650; J1815; J1940; J2405; J3370; J7030; J7060; J7121; Q9967

== ENCOUNTER 2024-10-22 11:07 | Emergency (ER) | payer MEDICARE ==
[~2024-10-22] VITALS: Ht 165.1 cm; Wt 103.9 kg
[~2024-10-22 11:07] MED LIST changes: +VITAMIN C500 M1 PO; +ZESTRIL5 MG PO
[2024-10-22] MEDS ORDERED: CEPHALEXIN500 M1 PO (15:43)
[2024-10-22 15:50] VITALS: BP 135/67
== END 2024-10-22 15:50 | disposition home or self-care (01) ==
LOC: ED 11:07
DX: T80.1XXA Vascular complications following infusion, transfusion and therapeutic injection, initial encounter (principal); I80.8 Phlebitis and thrombophlebitis of other sites; J45.909 Unspecified asthma, uncomplicated; I50.9 Heart failure, unspecified; Z86.73 Personal history of transient ischemic attack (TIA), and cerebral infarction without residual deficits; Z86.16 Personal history of COVID-19; Z87.891 Personal history of nicotine dependence; Z91.048 Other nonmedicinal substance allergy status; Z88.6 Allergy status to analgesic agent; Z79.01 Long term (current) use of anticoagulants; Z79.51 Long term (current) use of inhaled steroids; Z79.899 Other long term (current) drug therapy
CPT/HCPCS: 99283

== ENCOUNTER 2024-12-04 13:10 | Emergency (ER) | payer MEDICARE ==
[~2024-12-04] VITALS: Ht 165.1 cm; Wt 108.0 kg
[~2024-12-04 13:10] MED LIST changes: +CEPHALEXIN500 M1 PO
[2024-12-04 14:11] LABS: BASOPHILS 0.7 % (0-2); EOSINOPHILS 1.7 % (0-6); HEMATOCRIT 40.2 % (35.0-50.0); HEMOGLOBIN 13.2 g/dL (12.0-18.0); LYMPHOCYTES 16.5 % (24-44); MCH 30.2 (27-36); MCHC 32.8 g/dl (30-36); MCV 92.1 fl (81-99); MONOCYTES 9.1 % (0-12); PLATELET COUNT 233 K/uL (140-440); RBC 4.36 M/ul (4.3-5.7); RDW 15.3 (10.5-15.0)
[2024-12-04 14:29] LABS: ALBUMIN 3.5 g/dL (3.4-5.0); ALBUMIN/GLOBULIN RATIO 1.09 (1.1-2.4); ANION GAP 8.9 (7-21); BILIRUBIN, TOTAL 0.2 ng/dL (0.2-1.0); BUN/CREATININE RATIO 25.55 (6.0-28.6); CALCIUM 9.1 mg/dL (8.5-10.1); CREATININE, SERUM 0.9 mg/dL (0.55-1.02); MAGNESIUM 2.1 mg/dL (1.8-2.4); POTASSIUM 3.9 mmol/L (3.5-5.1); PROTEIN, TOTAL 6.7 g/dL (6.4-8.2)
[2024-12-04] MEDS ORDERED: SODIUM CHLORIDE 0.9% 1,000 ML IV ONE (14:30)
[2024-12-04 14:58] LABS: BILIRUBIN, URINE NEGATIVE (negative); BLOOD/HGB, URINE NEGATIVE (Negative); KETONE, URINE NEGATIVE (Negative); LEUK ESTERASE, URINE NEGATIVE (negative); NITRITE, URINE POSITIVE (negative)
[2024-12-04 14:59] LABS: EPITHELIAL CELLS, URINE SQUAMOUS 1+ /lpf (0-1+)
[2024-12-04 15:00] LABS: BACTERIA, URINE 3+ /hpf (negative); CASTS, URINE NONE SEEN \\lpf; COLLECTION TYPE, URINE CLEAN CATCH; CRYSTALS, URINE NONE SEEN (0-1+); RED BLOOD CELLS, URINE 0-1 /hpf (0-5); REFLEX CULTURE, URINE Yes (No)
[2024-12-04] MEDS ORDERED: CEFTRIAXONE/SODIUM CHLORIDE 2 GM/100 ML PIGGYBACK IV ONE (15:15)
[2024-12-04] MEDS ORDERED: CEFDINIR300 MG PO (15:16)
[2024-12-04 17:35] VITALS: BP 167/68
--- NOTE | 2024-12-06 22:57 | EKG ---
[facility] [address] [place] [address] Signed Sinus rhythm with 1st degree AV block Minimal voltage criteria for LVH, may be normal variant ( R in aVL ) Borderline ECG When compared with ECG of 12-OCT-2024 09:45, premature ventricular complexes are no longer present Confirmed by Fanta Jacome MD () on 12/06/2024 10:57:10 PM Electronically Signed By: FANTA JACOME MD 12/06/24 2257 PATIENT NAME: CASPER GEORGE Electrocardiogram DATE OF : 42 PHYSICIAN: FANTA JACOME MD REPORT #: [id number] REPORT IS CONFIDENTIAL AND NOT TO BE RELEASED WITHOUT AUTHORIZATION
== END 2024-12-04 17:40 | disposition home or self-care (01) ==
LOC: ED 13:10
PROVIDERS: Emergency Medicine
DX: N39.0 Urinary tract infection, site not specified (principal); E86.0 Dehydration; R53.1 Weakness; J45.909 Unspecified asthma, uncomplicated; I50.9 Heart failure, unspecified; Z86.73 Personal history of transient ischemic attack (TIA), and cerebral infarction without residual deficits; Z86.16 Personal history of COVID-19; Z87.891 Personal history of nicotine dependence; Z88.6 Allergy status to analgesic agent; Z91.048 Other nonmedicinal substance allergy status; Z79.01 Long term (current) use of anticoagulants; Z79.51 Long term (current) use of inhaled steroids; Z79.899 Other long term (current) drug therapy
CPT/HCPCS: 36415; 80053; 81001; 83735; 84484; 85025; 87088; 93005; 93010; 96374; 99285-25; J0696; J7030

== ENCOUNTER 2024-12-23 06:55 | Day surgery (SDC) | payer MEDICARE ==
[2024-12-20 15:38] VITALS: BP 130/78
[~2024-12-23] VITALS: Ht 165.1 cm; Wt 100.0 kg
[~2024-12-23 06:55] MED LIST changes: +CEFDINIR300 MG PO; +LACTATED RINGER'S 1,000 ML IV SCH
[2024-12-23] MEDS ORDERED: Methylene Blue 100 MG/10 ML SDV ONE (06:57)
[2024-12-23] MEDS ORDERED: CEFAZOLIN SODIUM 2 GM/20 ML SYR IV SCH (07:00)
[2024-12-23] MEDS ORDERED: IBLOOD GLUCOSE TEST STRIP 1 EA TEST VI PRN ×2 (07:00→10:30)
[2024-12-23] MEDS ORDERED: LIDOCAINE HCL 1% 5 ML SDV INJ ONE (07:00)
[2024-12-23] MEDS ORDERED: HEParin SOD (PORCINE) 5,000 UNIT/ML SDV SUB-Q SCH (07:00)
[2024-12-23 07:08] VITALS: BP 164/82
[2024-12-23] MEDS ORDERED: PULMICORT0.5 MG/2 M INH (07:26)
[2024-12-23] MEDS ORDERED: fentaNYL citrate 100 MCG/2 ML VIAL ONE (08:34)
[2024-12-23] MEDS ORDERED: propofoL 200 MG/20 ML VIAL ONE (08:34)
[2024-12-23] MEDS ORDERED: LACTATED RINGER'S 1,000 ML IV ONE (08:34)
[2024-12-23] MEDS ORDERED: KETOROLAC TROMETHAMINE 30 MG/ML VIAL ONE (08:34)
[2024-12-23] MEDS ORDERED: METOCLOPRAMIDE HCL 10 MG/2 ML SDV ONE (08:34)
[2024-12-23] MEDS ORDERED: FAMOTIDINE 20 MG/ 2 ML VIAL ONE (08:34)
[2024-12-23] MEDS ORDERED: ondansetron HCL 4 MG/2 ML VIAL ONE (08:34)
[2024-12-23] MEDS ORDERED: DEXAMETHASONE SOD PHOS 4 MG/ML VIAL ONE (08:34)
[2024-12-23] MEDS ORDERED: ALBUTEROL/IPRATROPIUM 3 ML NEB ONE (08:49)
[2024-12-23] MEDS ORDERED: KETAMINE in NS 50 MG/5 ML SYR ONE (09:36)
[2024-12-23] MEDS ORDERED: ACETAMINOPHEN 1,000 MG/100 ML VIAL ONE (10:02)
[2024-12-23] MEDS ORDERED: MORPHINE SULFATE 10 MG/ML VIAL ONE (10:15)
[2024-12-23] MEDS ORDERED: MORPHINE SULFATE 10 MG/ML VIAL IV PRN (10:30)
[2024-12-23] MEDS ORDERED: ondansetron HCL 4 MG/2 ML VIAL IV PRN (10:30)
[2024-12-23] MEDS ORDERED: PROCHLORPERAZINE EDISYLATE 10 MG/2 ML VIAL IV PRN (10:30)
[2024-12-23] MEDS ORDERED: fentaNYL citrate 50 MCG/ML SDV IV PRN (10:30)
[2024-12-23] MEDS ORDERED: droPERidol 5 MG/2 ML VIAL IV PRN (10:30)
[2024-12-23] MEDS ORDERED: METOCLOPRAMIDE HCL 10 MG/2 ML SDV IV PRN (10:30)
[2024-12-23] MEDS ORDERED: NALOXONE HCL 0.4 MG SYR IV PRN ×2 (10:30→11:15)
[2024-12-23] MEDS ORDERED: MEPOLIZUMAB 100 MG/ML SUB-Q ONE (10:45)
[2024-12-23] MEDS ORDERED: IBUPROFEN600 MG PO (11:06)
[2024-12-23] MEDS ORDERED: OXYCODON-ACETA1 EAC2 PO (11:06)
[2024-12-23] MEDS ORDERED: ACETAMINOPHEN500 MG PO (11:06)
[2024-12-23] MEDS ORDERED: IBUPROFEN 600 MG TAB PO PRN (11:15)
[2024-12-23] MEDS ORDERED: OXYCODONE/APAP 7.5/325 TAB PO PRN (11:15)
[2024-12-23] MEDS ORDERED: LACTATED RINGER'S 1,000 ML IV SCH (11:15)
[2024-12-23] MEDS ORDERED: ACETAMINOPHEN 500 MG TAB PO PRN (11:15)
--- NOTE | 2024-12-23 12:02 | NUR ---
12/23/24 1202 Sheets,Ysabel 1049 PT ARRIVED TO PACU WITH [address] PT REACTIVE TO TACTILE STIMULI BUT DOES NOT ANSWER QUESTIONS. PT EASILY FALLS BACK TO SLEEP AND SHALLOW BREATHING NOTED WITH PERIODS OF APNEA NOTED. RN WAKES PT OFF AND ON TO ENCOURAGE DEEP BREATHING, PT ABLE TO FOLLOW COMMANDS. 1054 PT WAKES TO STIMULI AND COUGHING AND DEEP BREATHING ENCOURAGED AND PT ABLE TO FOLLOW ENCOURAGEMENT. 1058 PT DENIES SURGICAL SITE PAIN BUT REPORTS "I CAN'T BREATHE." BILATERAL BREATH SOUNDS NOTED WITH DIMINISHED BASES. PT EASILY FALLS BACK TO SLEEP, O2 SAT 100% O2 DECREASED TO 6L. 1104 IV TYLENOL STARTED PER TALENT ACQUISITION SPECIALIST (BLUE SHEET). 1107 MD AT BEDSIDE AND UPDATED, MD REPORTS NO WHEEZING AND BILAT LUNG SOUNDS NOTED. 1110 BREATHING TREATMENT GIVEN, THE REST LEFT FROM PER OP WITH 6L VIA T PIECE. PT MOVED UP IN BED AND RN CONTINUES TO ENCOURAGE DEEP BREATHING AND COUGHING. 1121 RT AT BEDSIDE AND CPAP PLACED. PT CONTINUES TO REPORTS "I CAN'T BREATHE AND IT HURTS RIGHT HERE." PT POINT TO MID LOWER CHEST. PT EASILY FALLS BACK TO SLEEP.
[2024-12-23 12:10] VITALS: BP 152/71
--- NOTE | 2024-12-23 12:35 | NUR ---
1210-PT ARRIVED BACK TO DS AAOX3, ON RA. VS TAKEN. SATS NOTED TO BE DECREASED AT 86% ON RA. DEEP BREATHING ENCOURAGE AND SATS REMAIN AT 87%. 2L/NC PLACED. SATS IMPROVED TO 92-93%. PT ANSWERS QUESTIONS APPROPRIATELY AND IS ABLE TO MAKE HER NEEDS KNOWN. REPORT RECEIVED FROM SUPERVISOR BACKFILLING. IV SITE ASSESSED, PATENT, AND INFUSING LR PER ORDERS. SURGICAL SITES TO R BREAST AND R AXILLARY VISUALIZED WITH SUPERVISOR BACKFILLING. DRSG TO R BREAST APPEARS CDI AND AXILLARY DRSG NOTED WITH SMALL PEA SIZED AMT OF SS DRAINAGE PRESENT. PT RATES PAIN IN BREAST AREA AT 2/10 AND REPORTS THIS TO BE TOLERABLE FOR HER. ICE PACK IN PLACE TO BREAST AREA. PT REPORTS THIS TO BE HELPFUL IN PAIN MANAGEMENT WELL. NOTED FINE CRACKLES IN BILAT BASES OF LUNGS AND DIM BILAT IN UPPER LOBES. PT DENIES NAUSEA WHEN ASKED. PT HAS BEEN TAKING ORAL FLUIDS WELL PER PACU. CALL LIGHT WITHIN PT REACH. BED IN LOW POSITION. WHEELS LOCKED. BILAT RAILS IN PLACE. 1215-O2 TITRATED DOWN TO 1L/NC. SATS REMAIN 92% TO 94% ON 1L. PTS DAUGHTER ANA BROUGHT TO ROOM AT PT REQUEST. PT PROVIDED COFFEE, APPLESAUCE, AND ARTURO CRACKERS. RX GIVEN TO PTS DAUGHTER ANA AND SHE LEFT TO TAKE IT TO PHARMACY. 1235-CALL LIGHT ANSWERED, PT GIVEN MORE COFFEE AND ARTURO CRACKERS. PT ALSO GIVEN ANOTHER REMOTE FOR TV.
--- NOTE | 2024-12-23 12:35 | NUR ---
Pt titrated to RA with sats stable at 92-94% on RA.
[2024-12-23 13:10] VITALS: BP 150/68
--- NOTE | 2024-12-23 13:10 | NUR ---
INTO PTS ROOM FOR ROUTINE REASSESSMENT. VS TAKEN AND WITHIN PTS BASELINE. SATS REMAIN STABLE ON RA AT 92% OR GREATER. IV SITE ASSESSED. SURGICAL DRSGS VISUALIZED AND NO ACUTE CHANGES NOTED FROM PREVIOUS ASSESSMENT. PT REPORTS PAIN 1/10 AND TOLERABLE. PT WITH ICE PACK TO INCISIONS AND ELEVATING RUE ON PILLOWS AT HEART LEVEL. PT DENIES NAUSEA WHEN ASKED. PT ALSO DENIES URGE TO VOID AT THIS TIME. CALL LIGHT WITHIN PT REACH. BED IN LOW POSITION, WHEELS LOCKED, BILAT RAILS IN PLACE. ALL QUESTIONS ANSWERED.
[2024-12-23 13:55] VITALS: BP 143/63
--- NOTE | 2024-12-23 14:10 | NUR ---
1335-CALL LIGHT ANSWERED. PT EXPRESSED NEED TO VOID. ASSISTED PT IN SITTING UP ON EOB THEN WITH WALKING TO RESTROOM. PT ABLE TO VOID APPROX 600 ML OF PALE, CLR, YELLOW URINE. PT ASSISTED WITH DRESSING LOWER BODY WHILE ON TOILET AT HER REQUEST. PT THEN ASSISTED BACK TO BED. PT SITTING ON EOB AND ASSISTED WITH UPPER BODY DRESSING. SURGICAL SITES OBSERVED POST-AMBULATION AND NOTED TO BE WITHOUT ANY ACUTE CHANGES FROM INITIAL ASSESSMENT. PT CONT TO RATE PAIN IN SURGICAL SITES AT 10 AND DENIES NEED FOR ANY PAIN INTERVENTIONS AT THIS TIME. 1349-PT GIVEN HER ROUTINE NUCALA INJECTION PER ORDERS. THIS IS A ROUTINE INJECTION PT RECEIVES AN OUTPATIENT AND WAS DUE TODAY. PT SCHEDULED FOR NEXT MONTH APPT WELL AND PROVIDED APPT CARD. 1355-INTO PTS ROOM FOR ROUTINE REASSESSMENT. SURGICAL SITES OBSERVED AND DRSGS NOTED TO REMAIN CDI. IV SITE ASSESSED. VS TAKEN. PT REPORTS PAIN UNCHANGED AT 11/05. ICE PACK REFILLED FOR PT WELL ICE WATER. PT DENIES NAUSEA WHEN ASKED. PT PROVIDED DISCHARGE EDUCATION IN REGARDS TO WOUND CARE, F/U APPT, AND MEDS. PT ADVISED ON ACTIVITY WELL. PT VERBALIZED UNDERSTANDING AND ALL QUESTIONS WERE ANSWERED. DAUGHTER WAS CALLED AND IS ON HER WAY HERE. 1410-IV REMOVED FROM LFA AND PRESSURE DRSG APPLIED WITH GAUZE AND COBAN. IV TIP APPEARS INTACT. DAUGHTER CALLED AGAIN AND WILL MEET PT IN PICK-UP AREA. PT ASSISTED WITH PLACING COAT, SHOES, AND GATHERING ALL PERSONAL BELONINGS INCLUDED CPAP AND ALL ATTACHMENTS/CORDS, ECT BELONGINGS TO CPAP.
--- NOTE | 2024-12-23 14:20 | NUR ---
PT DISCHARGED FROM DS VIA WC TO PASSENGER SIDE OF DAUGHTERS VEHICLE. ALL PERSONAL BELONINGS TAKEN WITH PT.
--- NOTE | 2024-12-25 12:12 | OR ---
[facility] [address], [place] [address] Signed DATE OF OPERATION: 12/23/2024 SURGEON: Geovani Mejia MD PREOPERATIVE DIAGNOSIS: Right central breast carcinoma (infiltrating ductal, ER/SC positive). POSTOPERATIVE DIAGNOSIS: Right central breast carcinoma (infiltrating ductal, ER/SC positive). PROCEDURES: 1. Injection of methylene blue for sentinel lymph node identification. 2. Right axillary sentinel lymph node biopsies x3 (deep axillary lymph node biopsies). 3. Right partial mastectomy including central nipple-areolar complex. ANESTHESIA: General LMA; Geovani Young CRNA and local 10 mL of 0.25% Marcaine with epinephrine. INDICATION: This 84-year-old white woman is a patient of Dr. Wilson and was noted to have a palpable mass in the right subareolar area. She is known to me from the past having undergone laparotomy for lysis of adhesions in 2020. She has numerous medical problems including reactive airways disease, history of cholecystectomy, sleep apnea, history of cerebrovascular accident and has taken Plavix since 2006. She underwent a mammogram for palpable mass on November 18, 2024 was considered to have a BI-RADS category 5 mammogram in ultimately November 30, 2024. An ultrasound-guided biopsy confirmed a right retroareolar infiltrating ductal carcinoma, considered grade 1, thought to be 1.9 cm in size. It was ER/SC positive, HER-2/gwen negative. She does not have a known family history of breast cancer. She is admitted at this time to undergo right partial mastectomy and sentinel lymph node biopsy. We had discussed radiation therapy previously, which she was amenable to though recently she is less inclined to it. In any case operation is planned for today to definitively resect the mass and this of the sentinel lymph nodes of the axilla. The risk of bleeding, infection, cosmetic deformity, need for additional treatment including additional surgical treatment was all reviewed with her. She understands and wished to proceed. FINDINGS: The palpable mass was quite obvious at the 10 o'clock position in the subareolar area. There was no palpable axillary lymph node. [place] lymph node identification was easily forthcoming with both radionuclide and methylene blue dye. At least three Electronically Signed By: GEOVANI MEJIA MD 12/25/24 1212 PATIENT NAME: CASPER GEORGE OPERATIVE REPORT DATE OF : 42 REPORT #: [id number] PHYSICIAN: GEOVANI MEJIA MD PCP: SANTOS WILSON MD REPORT IS CONFIDENTIAL AND NOT TO BE RELEASED WITHOUT AUTHORIZATION [facility] [address] [place] [id number] Signed relatively larger lymph nodes were excised that were sentinel nodes and they do have moderate suspicion for metastatic disease. Tumor itself was excised widely and deeply with a clinically negative margin preserving remaining breast parenchyma. DESCRIPTION OF PROCEDURE: The patient had undergone radionuclide injection for sentinel lymph node identification earlier in the morning. She was taken to the operating room, given a general LMA type anesthetic. Preoperative antibiotic Ancef was given. The right breast, chest wall, and axilla were prepared with a chlorhexidine solution and draped sterilely. Just prior to preparation, I injected 1 mL of methylene blue dye in the subepidermal area in the right upper outer aspect of the breast. Once preparation was complete and sterile draping completed, a C-Trak radionuclide probe was applied to the right axilla identifying well in area of avid uptake concordant to presume sentinel lymph node. A small incision was made in this area. Dissection was carried through the deep axillary fat using blunt electrocautery dissection. With the gamma probe further dissection was taken more deeply and somewhat inferiorly to the original incision site. Ultimately identified was a blue node, which was grasped with an Allis clamp. This was elevated and found to be far more bulky than expected, was dissected free completely. Additional lymph nodes were identified by the blue lymphatic channels at least two other sentinel lymph node complexes were identified, elevated, dissected free and resected. She had particularly easy bleeding and the area of bleeding were secured with hemoclips. Irrigation was undertaken. Special care taken to avoid any ongoing bleeding. Once completely dry Sridhar hemostatic agent was applied to the axilla and the wound was then packed with laparotomy pack. Attention was turned towards breast surgery itself. The palpable mass was identified in the subareolar area. An elliptical area of resection outlined with a marking pen. Resection included this nipple-areolar complex. Wide resection was undertaken using electrocautery. The parenchyma was excised with a clinically negative margin both laterally, superiorly and deeply. Wide resection was completed and the specimen oriented with sutures, long stitch lateral, short stitch superior. The remaining parenchyma was irrigated with sterile water. Hemostasis was assured with electrocautery. The wound was closed with interrupted 2-0 Vicryl suture. The skin was then closed with a running subcuticular 3-0 Vicryl, Steri-Strips were applied. Reinspection of the axilla showed no ongoing bleeding. Good hemostasis. That wound was closed with interrupted 2-0 Vicryl and a running subcuticular 3-0 Vicryl. Steri-Strips were applied as were Acticoat dressings. The patient was ultimately extubated and transferred to recovery room in good condition and suffered no Electronically Signed By: GEOVANI MEJIA MD 12/25/24 1212 PATIENT NAME: CASPER GEORGE OPERATIVE REPORT DATE OF : 42 REPORT #: [id number] PHYSICIAN: GEOVANI MEJIA MD PCP: SANTOS WILSON MD REPORT IS CONFIDENTIAL AND NOT TO BE RELEASED WITHOUT AUTHORIZATION [place] [id number] [place], [place] [address] Signed complication. Sponge, needle, and instrument counts were reported as correct x3. MD AMBROSE Payne/GILMAR /[id number] cc: Dr. Wilson Copies: ~ Electronically Signed By: GEOVANI MEJIA MD 12/25/24 1212 PATIENT NAME: CASPER GEORGE OPERATIVE REPORT DATE OF : 42 REPORT #: [id number] PHYSICIAN: GEOVANI MEJIA MD PCP: SANTOS WILSON MD REPORT IS CONFIDENTIAL AND NOT TO BE RELEASED WITHOUT AUTHORIZATION
--- NOTE | 2024-12-29 08:41 | PATH ---
[facility] [address] [facility] [place], [place] [address] Signed SPECIMEN(S): A SENTINEL LYMPH NODE #1 SPECIMEN(S): B SENTINEL LYMPH NODE #2 SPECIMEN(S): C SENTINEL LYMPH NODE #3 SPECIMEN(S): D RIGHT CENTRAL BREAST SPECIMEN SOURCE: A. SENTINEL LYMPH NODE #1 B. SENTINEL LYMPH NODE #2 C. SENTINEL LYMPH NODE #3 D. RIGHT CENTRAL BREAST CLINICAL HISTORY: Infiltrating ductal carcinoma, right breast. FINAL PATHOLOGIC DIAGNOSIS: A. [place] lymph node #1: - One lymph node positive for metastatic carcinoma (1 out of 1) - Largest focus of metastatic carcinoma 12 mm. B. [place] lymph node #2: - One lymph nodes, negative for malignancy by morphology and immunohistochemistry (0 out of 1) C. [place] lymph node #3: - Three lymph nodes, one with isolated tumor cells. D. Right central breast, resection: - Invasive ductal carcinoma, see synoptic report INVASIVE CARCINOMA OF THE BREAST: Resection Applies To: D SPECIMEN Procedure: Excision (less than total mastectomy) Specimen Laterality: Right TUMOR Histologic Type: Invasive carcinoma of no special type (ductal) Glandular (Acinar) / Tubular Differentiation: Score 2 Nuclear Pleomorphism: Score 2 Mitotic Rate: Score 1 Overall Grade: Grade 1 (scores of 3, 4 or 5) Tumor Size: Greatest dimension of largest invasive focus (Millimeters) - 24 x 21 x 17 mm Tumor Focality: Single focus of invasive carcinoma Ductal Carcinoma In Situ (DCIS): Present PATIENT NAME: CASPER GEORGE LOUISE PATHOLOGY DATE OF : 42 REPORT #: [id number] PHYSICIAN: MAGALIE VERDUZCO PCP: SANTOS MERIDA MD REPORT IS CONFIDENTIAL AND NOT TO BE RELEASED WITHOUT AUTHORIZATION [facility] [address] [place], [place] [address] Signed Architectural Patterns: Solid Nuclear Grade: Grade II (intermediate) Necrosis: Present, central (expansive "comedo" necrosis) Tumor Extent Tumor Extent: Skin is present and involved Skin Invasion: Carcinoma directly invades into the dermis or epidermis without ulceration. Skin Satellite Foci: Satellite foci not identified Lymphatic and / or Vascular Invasion: Not identified Treatment Effect in the Breast: No known presurgical therapy MARGINS Margin Status for Invasive Carcinoma: All margins negative for invasive carcinoma Distance from Invasive Carcinoma to Closest Margin: 11 mm Closest Margin(s) to Invasive Carcinoma: Superior Margin Status for DCIS: All margins negative for DCIS Distance from DCIS to Closest Margin: 5 mm Closest Margin(s) to DCIS: Superior REGIONAL LYMPH NODES Regional Lymph Node Status: Tumor present in regional lymph node(s) Number of Lymph Nodes with Macrometastases: 1 Number of Lymph Nodes with Micrometastases: 0 Number of Lymph Nodes with Isolated Tumor Cells: 1 Size of Largest [place] Metastatic Deposit: 12 mm Extranodal Extension: Not identified Total Number of Lymph Nodes Examined (sentinel and non-sentinel): 5 (includes lymph nodes submitted in A, B C) Number of [place] Nodes Examined: 5 pTNM CLASSIFICATION (AJCC 8th Edition) pT Category: pT2 pN Category: pN1a N Suffix: (sn) Breast Biomarker Testing Performed on Previous Biopsy: Estrogen Receptor (ER) Status: Positive (greater than 10% of cells demonstrate nuclear positivity) Percentage of Cells with Nuclear Positivity: 91-100% Progesterone Receptor (PgR) Status: Positive Percentage of Cells with Nuclear Positivity: 81-90% HER2 (by immunohistochemistry): Negative (Score 1+) Testing Performed on PATIENT NAME: CASPER GEORGE PATHOLOGY DATE OF : 42 REPORT #: [id number] PHYSICIAN: MAGALIE VERDUZCO PCP: SANTOS MERIDA MD REPORT IS CONFIDENTIAL AND NOT TO BE RELEASED WITHOUT AUTHORIZATION [facility] [address] [place] [id number] Signed COMMENT: As part of our it quality assurance analyst program, this case is reviewed by another staff member. NA MICROSCOPIC EXAMINATION: Histologic sections of all submitted blocks are examined by light microscopy. These findings, together with the gross examination, support the pathologic diagnosis. Immunohistochemical stains are performed (with appropriately reactive control and show the following results: Cytokeratin AE1/AE3 (blocks B1, C1, C2, C3): Negative. GATA3 (block D4): Positive in tumor cells. NA GROSS DESCRIPTION: A. The specimen, labeled and designated "Kristynanumshalom Mark, " and designated on the requisition "sentinel lymph node #1," is received in formalin and consists of 3.5 x 2.3 x 1.6 cm portion of yellow-islas adipose tissue that upon dissection reveals one possible lymph node with a blue dye discoloration that is 2.7 cm in greatest dimension. The lymph node is sectioned and entirely submitted in cassettes A1-A2. Only adipose tissue remains within the container. B. The specimen, labeled and designated "Belkis, M, " and designated on the requisition "sentinel lymph node #2," is received in formalin and consists of 3.1 x 1.8 x 1.5 cm portion of yellow-islas adipose tissue that upon dissection reveals one possible lymph node with a blue dye discoloration that is 2.1 cm in greatest dimension. The lymph node is sectioned and entirely submitted in cassette B1. Only adipose tissue remains within the container. C. The specimen, labeled and designated "Belkis, M, " and designated on the requisition "sentinel lymph node #3," is received in formalin and consists of 4.5 x 3.9 x 2.1 cm aggregate of yellow-islas adipose tissue that upon dissection reveals three possible lymph nodes that measure up to 1.4 cm in greatest dimension. Two of the lymph nodes display a blue dye discoloration. Only adipose tissue remains in the container. Cassette Summary: (C1) one possible lymph node, trisected (C2) one possible lymph node, sectioned PATIENT NAME: CASPER GEORGE PATHOLOGY DATE OF : 42 REPORT #: [id number] PHYSICIAN: MAGALIE PATHOLOGY PCP: SANTOS MERIDA MD REPORT IS CONFIDENTIAL AND NOT TO BE RELEASED WITHOUT AUTHORIZATION [facility] [address] [place] [id number] Signed (C3) one possible lymph node, sectioned D. The specimen, labeled and designated "Mark George, " and designated on the requisition "right central breast (short stitch superior, long stitch lateral," is received in formalin and consists of 104 gram oriented portion of skin and fibroadipose tissue that is 9.1 x 6.2 x 5.4 cm. The 7.2 x 4.8 cm ellipse of skin has a centrally located, indurated and retracted. The skin surface is pink-islas and wrinkled with a blue dye discoloration superior to the nipple. A short suture is present and identifies the superior margin; a long suture identifies the lateral margin. The specimen is inked as follows: anterior-superior - blue; anterior-inferior - green; and posterior - black. The specimen is serially sectioned from medial to lateral into 14 slices revealing 2.4 x 2.1 x 1.7 cm pink-white firm ill-defined mass deep to the nipple. The mass is present in slices 6-9, abuts the anterior skin and nipple, 1.5 cm from the posterior soft tissue margin, 1.1 cm from the superior soft tissue margin, 1.8 cm from the inferior soft tissue margin, 2.9 cm from the medial soft tissue margin, and 2.8 cm from the lateral soft tissue margin. Upon palpation of the lateral aspect of the breast no lymph are grossly identified. Approximately 90% of the specimen is a yellow-islas greasy adipose tissue and 10% is a white-islas rubbery fibrous tissue. Medical Coder sections are submitted in 10 cassettes. Cassette Summary: (D1) slice one, medial soft tissue resection margin, perpendicular (D2) fibroadipose tissue adjacent, medial to mass, slice five (D3-D7) slice eight with mass and nipple (D8) additional sections of superior soft tissue resection margin, perpendicular (D9) fibroadipose tissue adjacent and lateral to mass, slice 10 (D10) slice 14, lateral soft tissue resection margin, perpendicular Time of collection: 6:50 PM December 23, 2024. Time into formalin: 6:50 PM December 23, 2024. Processor load time: 9 AM December 24, 2024. Total fixation time in formalin: 14 hours 10 minutes The ASCO/CAP guidelines related to HER2 and hormone receptor testing in breast specimens have been met and the specimen has been placed in formalin within one hour and fixed in 10% neutral buffered formalin for 6 to 72 hours. FB (under the direct supervision of a pathologist) PATIENT NAME: CASPER GEORGE PATHOLOGY DATE OF : 42 REPORT #: [id number] PHYSICIAN: MAGALIE VERDUZCO PCP: SANTOS MERIDA MD REPORT IS CONFIDENTIAL AND NOT TO BE RELEASED WITHOUT AUTHORIZATION [facility] [address] [place], [place] [address] Signed Additional sections are submitted in cassettes D11-D12 per Dr. Prieto's request. FB The Gross Description was prepared using a voice recognition system. The report was reviewed for accuracy; however, sound-alike word errors, addition and/or deletions may occur. If there is any question about this report, please contact Client Services. ADDITIONAL NOTES: Immunohistochemical and/or in situ hybridization studies if performed in this case included appropriate positive controls that reacted as expected. This test was developed and its performance characteristics determined by [facility]. It has not been cleared or approved by the U.S. Food and Drug Administration. The FDA has determined that such clearance or approval is not necessary. This test is used for clinical purposes. It should not be regarded as investigational or for research. [facility] is certified under the Clinical Laboratory Improvement Amendments of 1988 (CLIA) as qualified to perform high complexity clinical laboratory testing. PERFORMING LABORATORY: Technical component was performed by [facility], [address] [place] [id number] (CLIA# [id number]). Professional interpretation was performed by [facility], [address] [place] [id number] (CLIA#: [id number]). Diagnostician: Kolby Prieto MD Pathologist Electronically Signed 12/29/2024 Copies: ~ PATIENT NAME: CASPER GEORGE PATHOLOGY DATE OF : 42 REPORT #: [id number] PHYSICIAN: MAGALIE PATHOLOGY PCP: SANTOS MERIDA MD REPORT IS CONFIDENTIAL AND NOT TO BE RELEASED WITHOUT AUTHORIZATION
== END 2024-12-23 14:20 | disposition home or self-care (01) ==
LOC: OPS 06:55 → EDSTATUS 08:00 → NUC 08:00 → OPS 08:20 → DS 08:20 → OPS 14:20
PROVIDERS: ATTEND Surgery
PROC: 0HBT0ZZ Excision of Right Breast, Open Approach (ICD-10-PCS; principal; 2024-12-23 09:00)
PROC: 07B50ZX Excision of Right Axillary Lymphatic, Open Approach, Diagnostic (ICD-10-PCS; 2024-12-23 09:00)
DX: C50.111 Malignant neoplasm of central portion of right female breast (principal); C77.3 Secondary and unspecified malignant neoplasm of axilla and upper limb lymph nodes; Z17.0 Estrogen receptor positive status [ER+]; Z17.21 Progesterone receptor positive status; E66.9 Obesity, unspecified; Z68.37 Body mass index [BMI] 37.0-37.9, adult; Z79.02 Long term (current) use of antithrombotics/antiplatelets; Z79.899 Other long term (current) drug therapy; Z90.49 Acquired absence of other specified parts of digestive tract; Z90.710 Acquired absence of both cervix and uterus; Z86.73 Personal history of transient ischemic attack (TIA), and cerebral infarction without residual deficits
CPT/HCPCS: 00400; 78195; 88307; 88342; A9541; J0131; J0690; J1100; J1644; J1885; J2182; J2270; J2405; J2704; J2765; J3010; J3490; J7121

== ENCOUNTER 2025-01-03 12:56 | Emergency (ER) | payer MEDICARE ==
[~2025-01-03] VITALS: Ht 165.1 cm; Wt 100.0 kg
[~2025-01-03 12:56] MED LIST changes: +IBUPROFEN600 MG PO; -LACTATED RINGER'S 1,000 ML IV SCH; +OXYCODON-ACETA1 EAC2 PO
[2025-01-03 13:30] LABS: BASOPHILS 1.2 % (0-2); EOSINOPHILS 1.6 % (0-6); HEMOGLOBIN 12.1 g/dL (12.0-18.0); LYMPHOCYTES 16.4 % (24-44); MCH 30.7 (27-36); MCHC 33.7 g/dl (30-36); NEUTROPHILS 69.8 % (39-80); PLATELET COUNT 265 K/uL (140-440); RBC 3.95 M/ul (4.3-5.7); RDW 14.7 (10.5-15.0)
[2025-01-03 13:48] LABS: ALBUMIN 3.2 g/dL (3.4-5.0); ALBUMIN/GLOBULIN RATIO 1.07 (1.1-2.4); ANION GAP 12.2 (7-21); BILIRUBIN, TOTAL 0.2 mg/dL (0.2-1.0); BUN/CREATININE RATIO 24.32 (6.0-28.6); CALCIUM 8.6 mg/dL (8.5-10.1); CREATININE, SERUM 0.74 mg/dL (0.55-1.02); MAGNESIUM 2.1 mg/dL (1.8-2.4); POTASSIUM 4.2 mmol/L (3.5-5.1); PROTEIN, TOTAL 6.2 g/dL (6.4-8.2)
[2025-01-03 16:20] VITALS: BP 184/74
--- NOTE | 2025-01-03 21:40 | EKG ---
[facility] [address] [place] [address] Signed Sinus bradycardia with 1st degree AV block Moderate voltage criteria for LVH, may be normal variant ( R in aVL , [place] product ) Borderline ECG When compared with ECG of 04-DEC-2024 13:45, No significant change was found Confirmed by Fanta Jacome MD () on 01/03/2025 9:40:26 PM Electronically Signed By: FANTA JACOME MD 01/03/25 2140 PATIENT NAME: CASPER GEORGE Electrocardiogram DATE OF : 42 PHYSICIAN: FANTA JACOME MD REPORT #: [id number] REPORT IS CONFIDENTIAL AND NOT TO BE RELEASED WITHOUT AUTHORIZATION
== END 2025-01-03 16:20 | disposition home or self-care (01) ==
LOC: ED 12:56
PROVIDERS: Emergency Medicine
DX: R55 Syncope and collapse (principal); I50.9 Heart failure, unspecified; J45.909 Unspecified asthma, uncomplicated; Z91.048 Other nonmedicinal substance allergy status; Z88.6 Allergy status to analgesic agent; Z87.891 Personal history of nicotine dependence
CPT/HCPCS: 36415; 80053; 83735; 84484; 85025; 93005; 93010; 99284